=== PATIENT | male | born 1955 | race African-American/Black ===

== ENCOUNTER 2016-05-05 07:08 | Inpatient (IN) | payer OTHER ==
[2016-05-05] MEDS ORDERED: ASPIRIN 81 MG TABLET, CHEWABLE PO ONE (07:37)
[2016-05-05 08:02] LABS: VENOUS BLOOD BASE EXCESS -3.1 mmol/L; VENOUS BLOOD HCO3 23.8 mmol/L (20-32); VENOUS BLOOD PCO2 49.1 mmHg (35-63); VENOUS BLOOD PH 7.3 (7.30-7.42)
[2016-05-05 08:09] LABS: PROTHROMBIN TIME 16.4 SEC (11.4-15.4)
[2016-05-05 08:12] LABS: HEMATOCRIT 47.5 % (37.9-51.0); HEMOGLOBIN 14.6 g/dL (13.5-17.0); HGB HCT DIFFERENCE -3.7; MEAN CORPUSCULAR HEMOGLOBIN 19.9 pg (27.0-33.4); MEAN CORPUSCULAR HGB CONC 30.7 g/dL (32.0-36.0); MEAN CORPUSCULAR VOLUME 65 fl (80-97); RED CELL DISTRIBUTION WIDTH 17.4 % (11.5-14.0); WHITE BLOOD COUNT 9.8 10^3/uL (4.0-10.5)
[2016-05-05 08:15] LABS: RED BLOOD COUNT 7.32 10^6/uL (4.35-5.55)
[2016-05-05 08:21] LABS: ALANINE AMINOTRANSFERASE 38 U/L (21-72); ALBUMIN 3.6 g/dL (3.5-5.0); ALKALINE PHOSPHATASE 78 U/L (38-126); ANION GAP 14 (5-19); ASPARTATE AMINO TRANSFERASE 23 U/L (17-59); BILIRUBIN,DIRECT 0.1 mg/dL (0.0-0.3); BILIRUBIN,TOTAL 3.3 mg/dL (0.2-1.3); BLOOD UREA NITROGEN 14 mg/dL (7-20); CALCIUM 9.6 mg/dL (8.4-10.2); CARBON DIOXIDE 22 mmol/L (22-30); CHLORIDE 107 mmol/L (98-107); CREATINE KINASE 88 U/L (55-170); CREATININE RESULT 1.44 mg/dL (0.52-1.25); GLUCOSE 93 mg/dL (75-110); POTASSIUM 4.8 mmol/L (3.6-5.0); SODIUM 143.2 mmol/L (137-145); TOTAL PROTEIN 6.7 g/dL (6.3-8.2)
--- NOTE | 2016-05-05 08:30 | EKG REPORT ---
SEVERITY:- ABNORMAL ECG - SINUS TACHYCARDIA PROBABLE LVH WITH SECONDARY REPOL ABNRM BORDERLINE PROLONGED QT INTERVAL : Confirmed by: Zohreh Robles 05-May-2016 08:30:39
[2016-05-05 08:31] LABS: CREATINE KINASE MB 0.86 ng/mL (<4.55)
[2016-05-05 08:36] LABS: TROPONIN I 0.039 ng/mL
[2016-05-05] MEDS ORDERED: NORMAL SALINE 1000 ML 500 ML IV ONE (08:38)
[2016-05-05 08:43] LABS: BASOPHILS % (MANUAL) 1 % (0-2); EOSINOPHILS % (MANUAL) 0 % (0-6); LYMPHOCYTES % (MANUAL) 18 % (13-45); TOTAL CELLS COUNTED 100
[2016-05-05 08:45] LABS: ANISOCYTOSIS 1+; MICROCYTOSIS 3+; TOXIC GRANULATION 1+; TOXIC VACUOLATION PRESENT
--- NOTE | 2016-05-05 10:12 | ER Document Report ---
ED General - General Chief Complaint: Shortness Of Breath Stated Complaint: DIFFICULTY BREATHING TRAVEL OUTSIDE OF THE [place] IN LAST 30 DAYS: No - HPI Patient complains to provider of: shortness of breath difficulty breathing Notes: Patient coming in for evaluation shortness of breath difficulty in breathing. Patient states this is chronic issue patient states he is on C Pap at night states 2 weeks ago did see his physician and has C Pap adjusted. Patient states that he is suffocating at nighttime. Patient also states that he becomes very short of breath whenever moving or walking. Patient denies any recent travel trauma. Patient denies history of DVT PE in the past. Patient does state he has been treated for anxiety and the past but currently is not on any medications. - Related Data Allergies/Adverse Reactions: No Known Allergies Allergy (Verified 05/05/16 07:21) Past Medical History - Social History Smoking Status: Unknown if Ever Smoked Chew tobacco use (# tins/day): No Frequency of alcohol use: None Drug Abuse: None Family History: Arthritis, DM, Hyperlipidemia, Hypertension, Malignancy, Thyroid Disfunction, Other Patient has suicidal ideation: No Patient has homicidal ideation: No - Past Medical History Cardiac Medical History: Reports: Hx Hypertension Renal/ Medical History: Denies: Hx Peritoneal Dialysis GI Medical History: Reports: Hx Colonoscopy Musculoskeltal Medical History: Reports Hx Arthritis Psychiatric Medical History: Reports: Hx Anxiety Past Surgical History: Reports: Hx Oral Surgery - teeth pulled, Hx Orthopedic Surgery - right hand 4th finger - Immunizations Hx Diphtheria, Pertussis, Tetanus Vaccination: Yes Review of Systems - Review of Systems Constitutional: No symptoms reported EENT: No symptoms reported Cardiovascular: No symptoms reported Respiratory: Short of breath Gastrointestinal: No symptoms reported Genitourinary: No symptoms reported Male Genitourinary: No symptoms reported Musculoskeletal: No symptoms reported Skin: No symptoms reported Hematologic/Lymphatic: No symptoms reported Neurological/Psychological: No symptoms reported -: Yes All other systems reviewed and negative Physical Exam - Vital signs Vitals: Temp Pulse Resp BP Pulse Ox 98.1 F 112 H 18 155/97 H 97 05/05/16 07:22 05/05/16 07:22 05/05/16 07:22 05/05/16 07:22 05/05/16 07:22 Interpretation: Tachycardic, Tachypneic - General General appearance: Appears well, Alert - HEENT Head: Normocephalic, Atraumatic Eyes: Normal Pupils: PERRL - Respiratory Respiratory status: No respiratory distress Chest status: Nontender Breath sounds: Normal Chest palpation: Normal - Cardiovascular Rhythm: Regular Heart sounds: Normal auscultation Murmur: No - Abdominal Inspection: Normal Distension: No distension Bowel sounds: Normal Tenderness: Nontender Organomegaly: No organomegaly - Back Back: Normal, Nontender - Extremities General upper extremity: Normal inspection, Nontender, Normal color, Normal ROM , Normal temperature General lower extremity: Normal inspection, Nontender, Normal color, Normal ROM , Normal temperature, Normal weight bearing. No: Lebron's sign - Neurological Neuro grossly intact: Yes Cognition: Normal Orientation: AAOx4 Mame Coma Scale Eye Opening: Spontaneous Mame Coma Scale Verbal: Oriented Mame Coma Scale Motor: Obeys Commands Mame Coma Scale Total: 15 Speech: Normal Motor strength normal: LUE, RUE, LLE, RLE Sensory: Normal - Psychological Associated symptoms: Normal affect, Normal mood - Skin Skin Temperature: Warm Skin Moisture: Dry Skin Color: Normal Course - Re-evaluation Re-evalutation: 05/05/16 14:31 Patient's lab work had elevated d-dimer follow-up with a CTA showing a PE. pesi index is intermediate upon evaluating the patient in discussing his diagnosis of patient did become hypoxic requiring nasal cannula oxygen. Discussed with hospitalist. Patient was given a dose of Lovenox will be admitted for further evaluation and observation. - Vital Signs Vital signs: Temp Pulse Resp BP Pulse Ox 97.6 F 91 22 H 146/86 H 98 05/05/16 12:06 05/05/16 12:06 05/05/16 12:06 05/05/16 12:06 05/05/16 12:06 - Laboratory Result Diagrams: 05/05/16 07:40 05/05/16 07:40 Laboratory results interpreted by me: 05/05/16 05/05/16 05/05/16 07:40 07:40 07:40 RBC 7.32 H MCV 65 L MCH 19.9 L MCHC 30.7 L RDW 17.4 H PT 16.4 H D-Dimer 0.80 H Creatinine 1.44 H Est GFR (Non-Af Amer) 50 L Total Bilirubin 3.3 H Critical Care Note - Critical Care Note Total time excluding time spent on procedures (mins): 35 Comments: Multiple evaluation patient presenting with PE dyspnea tachycardia. Discharge - Discharge Clinical Impression: Tachycardia Pulmonary embolism Qualifiers: Pulmonary embolism type: other Chronicity: acute Acute cor pulmonale presence: without acute cor pulmonale Qualified Code(s): I26.99 - Other pulmonary embolism without acute cor pulmonale Dyspnea Qualifiers: Dyspnea type: unspecified Qualified Code(s): R06.00 - Dyspnea, unspecified Condition: Good Disposition: ADMITTED INPATIENT Admitting Provider: [facility] Admitted: Telemetry
[2016-05-05] MEDS ORDERED: ENOXAPARIN SODIUM INJ 120 MG/0.8 ML DISP.SYRIN SUBCUT SCH ×2 (10:15→22:00)
[2016-05-05] MEDS ORDERED: ENOXAPARIN SODIUM INJ 120 MG/0.8 ML DISP.SYRIN SUBCUT ONE (10:30)
[2016-05-05] MEDS ORDERED: MAGNESIUM HYDROXIDE SUSP 30 ML UDCUP PO PRN (10:41)
[2016-05-05] MEDS ORDERED: ONDANSETRON HCL INJ/PF 4 MG/2 ML SDV IV PRN (10:41)
[2016-05-05] MEDS ORDERED: ACETAMINOPHEN 325 MG TABLET PO PRN (10:41)
[2016-05-05] MEDS ORDERED: APIXABAN 5 MG TABLET PO ONE (11:30)
[2016-05-05 12:25] LABS: TROPONIN I 0.047 ng/mL
[2016-05-05] MEDS ORDERED: INFLUENZA ADLT QUAD (36MOS+) 2016-17 VAC 0.5 ML SYR IM PRN (12:52)
--- NOTE | 2016-05-05 15:47 | XCELERA REPORT ---
[address] [address] Lower Extremity Venous Evaluation Name: TIKI FRIEDMAN Age: 60 yrs Gender: Male : 1955 Patient Status: Inpatient Patient Location: [id number]\404\[id number] Study Date: 05/05/2016 02:15 PM Procedure: Color flow and duplex imaging bilaterally of the veins of the lower extremities as well as the Common Femoral veins. Reason For Study: DVT Ordering Physician: LAYA MYERS Performed By: Barbra Rodriguez Right Sided Venous Evaluation Normal vessel filling wall to wall, compression and augmentation as well as Colour flow down to the infrageniculate veins. Left Sided Venous Evaluation Normal vessel filling wall to wall, compression and augmentation as well as Colour flow down to the infrageniculate veins. Interpretation Summary No duplex evidence of DVT or obstruction in the bilateral lower extremities. : LAYA MYERS > Aris Canas
--- NOTE | 2016-05-05 16:31 | PDOC H&P ---
History of Present Illness Admission Date/PCP: 05/05/16 10:43 RADHA DASILVA Patient complains of: Shortness of breath History of Present Illness: TIKI FRIEDMAN is a 60 year old male presents to the emergency department from home with a several week history of progressive shortness of breath, worse at night. He was recently seen a sleep study and diagnosed with sleep apnea placed on CPAP machine for approximately the last 6 weeks but has not noticed any improvement in his dyspnea, however he does state he sleeps better than he ever has before. He reports feeling "bloated", rapid shallow breathing worse with lying flat with associated chills and a sensation of early satiety. He also describes sharp, epigastric pain that waxes and wanes and is nonradiating, relieved with eating and worse with certain positions and palpation but is not associated with chest pain, palpitations, lower extremities swelling, sicca B or presyncope. He denies cough, congestion, fevers, chills, nausea vomiting diarrhea, constipation, wheezing. He reports taking a 19 hour trip to [place] by train where he was largely confined to his seat and did not plan well for such a long trip meaning he did not stay hydrated or eat well during this trip. Shortly thereafter he noted pain in his left calf and within a week he started feeling some dyspnea as described above. Evaluation in the emergency department including CTA of the chest shows a right lower lobe pulmonary embolus is likely extubation for the vast majority of his symptoms. He is not hypoxic but he is to get back and tachycardic and so we were asked to admit for further evaluation and management. He was given a dose of Lovenox 1 mg/kg subcutaneous 1 in the emergency brother. Past Medical History Cardiac Medical History: Reports: Hypertension Musculoskeltal Medical History: Reports: Arthritis Past Surgical History Past Surgical History: Reports: Orthopedic Surgery - right hand 4th finger Social History Smoking Status: Unknown if Ever Smoked Number of Years Smokin Last Time Smoked: 20 years ago Frequency of Alcohol Use: Occasional Hx Recreational Drug Use: No Drugs: None Hx Prescription Drug Abuse: No - Advance Directive Resuscitation Status: Full Code Family History Family History: Arthritis, DM, Hyperlipidemia, Hypertension, Malignancy, Thyroid Disfunction. denies: Other - No history of bleeding diathesis or clotting disorder Parental Family History Reviewed: Yes Children Family History Reviewed: Yes Sibling(s) Family History Reviewed.: Yes Medication/Allergy Home Medications: Amlodipine Besylate [Amlodipine Besylate] 5 mg PO HSP 02/11/16 Atorvastatin Calcium 40 mg PO HSP PRN 02/11/16 Enalapril Maleate [Enalapril Maleate] 20 mg PO BID 02/11/16 Allergies/Adverse Reactions: No Known Allergies Allergy (Verified 05/05/16 07:21) Review of Systems Constitutional: ABSENT: chills, fever(s), headache(s), weight gain, weight loss Eyes: ABSENT: visual disturbances Ears: ABSENT: hearing changes Cardiovascular: PRESENT: as per HPI, dyspnea on exertion, orthropnea. ABSENT: chest pain, edema, palpitations Respiratory: PRESENT: as per HPI Gastrointestinal: PRESENT: as per HPI Genitourinary: ABSENT: dysuria, hematuria Musculoskeletal: ABSENT: joint swelling Integumentary: ABSENT: rash, wounds Neurological: ABSENT: abnormal gait, abnormal speech, confusion, dizziness, focal weakness, syncope Psychiatric: ABSENT: anxiety, depression Endocrine: ABSENT: cold intolerance, heat intolerance, polydipsia, polyuria Hematologic/Lymphatic: ABSENT: easy bleeding, easy bruising Physical Exam Vital Signs: Temp Pulse Resp BP Pulse Ox 97.6 F 91 22 H 146/86 H 98 05/05/16 12:06 05/05/16 12:06 05/05/16 12:06 05/05/16 12:06 05/05/16 12:06 Intake & Output 05/04/16 05/05/16 05/06/16 06:59 06:59 06:59 Weight 103.2 kg PHYSICAL EXAM GENERAL: NAD; well developed, well nourished; mild obese; alert and oriented to person, place, time, situation HEENT: normocephalic, atraumatic; EOMI, PERRLA, no conjunctival injection, no scleral icterus; oral mucosa moist,; neck supple, no LAD, normal ROM RESPIRATORY: no accessory muscle use, no increased WOB, good air entry bilaterally; no wheezes, rales, rhonchi; no inspiratory crackles CARDIO: no JVD; RRR; no systolic murmur; no tachycardia VASCULAR: no carotid bruit; no abdominal bruit; no pallor; 2+ radial, DP pulse ; normal capillary refill GI: soft; nondistended; normal bowel sounds; no hepato spleno megaly; no rebound, rigidity, guarding; mild epigastric tenderness to deep palpation, reproduces the patient's symptoms. No tenderness to the chest wall with deep palpation. : normal external genitalia; rectal deferred NEURO: normal patella reflexes; normal sensation; normal motor function; no gait abnls; no dysarthria; no nystagmus; MSK: 5/5 strength; normal ROM hips; ambulatory without assistance; no tenderness EXTREMITIES: no calf tender; no palpable cords in calf and no tenderness; no clubbing, cyanosis, pedal edema PSYCH: normal affect, normal mood SKIN: warm; moist; no petechiae; no telengectasias; no jaundice; no rash Results Laboratory Results: 05/05/16 11:30 Troponin I 0.047 NT-Pro-B Natriuret Pep 9710 H Impressions: Abdomen X-Ray 05/05/16 00:00 IMPRESSION: NO RADIOGRAPHIC EVIDENCE FOR ACUTE ABDOMINAL DISEASE. Chest X-Ray 05/05/16 07:38 IMPRESSION: Atelectasis versus early pneumonia or aspiration right lower lobe. Clinical correlation is needed. Chest/Abdomen CTA 05/05/16 08:37 IMPRESSION: Positive for small emboli in the right lower lobe pulmonary arterial branches. No central PE. Assessment & Plan - Diagnosis (1) Pulmonary embolism Qualifiers: Pulmonary embolism type: other Chronicity: acute Acute cor pulmonale presence: without acute cor pulmonale Qualified Code(s): I26.99 - Other pulmonary embolism without acute cor pulmonale Is this a current diagnosis for this admission?: YesPlan: Admit to telemetry for overnight monitoring and careful hemodynamic monitoring, supplemental O2 as needed. Start Eliquis. Consult hematology for hypercoagulable evaluation. Check echocardiogram for right ventricular strain given the elevation of his BNP. (2) Epigastric pain Is this a current diagnosis for this admission?: YesPlan: Unclear etiology but I suspect peptic ulcer disease or gastritis. We'll start empiric PPI therapy twice a day. Given his multiple risk factors however, will check 3 sets cardiac enzymes and follow-up on echo. Check amylase and lipase (3) Hyperlipidemia Is this a current diagnosis for this admission?: YesPlan: Check lipids in the a.m. (4) Essential hypertension Is this a current diagnosis for this admission?: YesPlan: Monitor and treat as clinically indicated. (5) Chronic kidney disease, stage II (mild) Is this a current diagnosis for this admission?: YesPlan: Unknown baseline. Continue to monitor for now. - Time Time Spent: 50 to 70 Minutes Medications reviewed and adjusted accordingly: Yes Anticipated discharge: Home - Inpatient Certification Based on my medical assessment, after consideration of the patient's comorbidities, presenting symptoms, or acuity I expect that the services needed warrant INPATIENT care.: Yes I certify that my determination is in accordance with my understanding of Medicare's requirements for reasonable and necessary INPATIENT services [42 CFR 412.3e].: Yes Medical Necessity: Need For Continuous Telemetry Monitoring, Risk of Complication if Not Cared For in Hospital
[2016-05-05 17:15] LABS: LIPASE 179.2 U/L (23-300)
[2016-05-05 17:28] LABS: CREATINE KINASE MB 0.89 ng/mL (<4.55); TROPONIN I 0.055 ng/mL
--- NOTE | 2016-05-05 17:52 | XCELERA REPORT ---
[address] [address] Transthoracic Echocardiogram Report Name: TIKI FRIEDMAN Age: 60 yrs Gender: Male : 1955 Patient Status: Inpatient Patient Location: [id number]\404\[id number] Study Date: 05/05/2016 01:50 PM Height: 72 in Weight: 233 lb BSA: 2.3 m2 Procedure: A complete two-dimensional transthoracic echocardiogram was performed (2D, M-mode, spectral and color flow Doppler). The study was technically adequate with some images being suboptimal in quality. Reason For Study: PE Ordering Physician: LAYA MYERS Performed By: Barbra Rodriguez Interpretation Summary The Ejection Fraction estimate is <20% Left ventricular systolic function is severely reduced. There is normal left ventricular wall thickness. The left ventricle is moderately dilated. Doppler measurements suggest pseudonormalized left ventricular relaxation, which is associated with grade II/IV or mild to moderate diastolic dysfunction There is severe global hypokinesis of the left ventricle. There is mid to distal anterior wall akinesis Borderline right ventricular enlargement. The right ventricular systolic function is mild to moderately reduced. The right atrium is normal in size The left and right artia are moderately dilated There is a moderate to severe amount of mitral regurgitation There is no mitral valve stenosis. There is a trace amount of aortic regurgitation There is no aortic valve stenosis There is a trace or physiologic amount of tricuspid regurgitation Tricuspid regurgitation jet envelope not well defined to measure RV systolic pressure accurately. Minimal pericardial effusion. The inferior vena cava appeared normal and decreased < 50% with respiration (RAP 10-15 mmHg) MMode/2D Measurements \T\ Calculations RVDd: 3.5 cm LVIDd: 6.9 cm FS: 5.2 % EPSS: 2.9 cm IVSd: 0.87 cm LVIDs: 6.5 cm EDV(Teich): MV Diam: 3.0 cm LVPWd: 0.87 cm 245.6 ml ESV(Teich): 217.7 ml EF(Teich): 11.3 % Ao root diam: LVOT diam: LVLd ap4: 8.8 cm SV(MOD-sp4): 21.0 ml 3.6 cm 2.2 cm EDV(MOD-sp4): Ao root area: LVOT area: 167.0 ml 10.1 cm2 4.0 cm2 LVLs ap4: 8.4 cm LA dimension: ESV(MOD-sp4): 4.4 cm 146.0 ml EF(MOD-sp4): 12.6 % LA A2Cs: 31.8 cm2 LA A4Cs: LA length: 6.7 cm LA Vol Index (BP): 28.1 cm2 49.9 ml/m2 LA Volume: 113.4 ml Doppler Measurements \T\ Calculations MV E max mahsa: MV V2 max: MV P1/2t max mahsa: Ao V2 max: 102.8 cm/sec 103.2 cm/sec 103.2 cm/sec 99.4 cm/sec MV A max mahsa: MV max P.3 mmHgMV P1/2t: 52.2 msec Ao max P.1 cm/sec MV V2 mean: 4.0 mmHg MV E/A: 3.7 54.5 cm/sec MVA(P1/2t): 4.2 cm2 MV mean PG: MV dec slope: [place](V,D): 2.8 cm2 1.5 mmHg 578.4 cm/sec2 MV V2 VTI: 17.5 cm MV dec time: MV area (1 diam): 0.18 sec 6.9 cm2 MV Flow area (1diam): 6.9 cm2 LV V1 max PG: MR max mahsa: MR(RF 1 diam): SV(MV 1 diam): 2.0 mmHg 467.5 cm/sec 32.5 % 120.2 ml LV V1 max: MR max PG: SI(MV 1 diam): 71.0 cm/sec 87.4 mmHg 52.9 ml/m2 LV dP/dt: 826.0 mmHg/s PA V2 max: PI end-d mahsa: TR max mahsa: 54.3 cm/sec 199.1 cm/sec 206.3 cm/sec PA max PG: TR max P.0 mmHg 1.2 mmHg Left Ventricle The left ventricle is moderately dilated. There is normal left ventricular wall thickness. Left ventricular systolic function is severely reduced. The Ejection Fraction estimate is <20%. Doppler measurements suggest pseudonormalized left ventricular relaxation, which is associated with grade II/IV or mild to moderate diastolic dysfunction. There is severe global hypokinesis of the left ventricle. There is mid to distal anterior wall akinesis. Right Ventricle Borderline right ventricular enlargement. There is normal right ventricular wall thickness. The right ventricular systolic function is mild to moderately reduced. Atria The right atrium is normal in size. The left and right artia are moderately dilated. Interarterial septum not well visualized and not well dopplered. Cannot comment on ASD/PFO presence. Mitral Valve The mitral valve leaflets are sclerotic, but show no functional abnormalities. There is no mitral valve stenosis. There is a moderate to severe amount of mitral regurgitation. Aortic Valve The aortic valve is grossly normal. There is no aortic valve stenosis. There is a trace amount of aortic regurgitation. Tricuspid Valve The tricuspid valve is not well visualized, but is grossly normal. There is no tricuspid stenosis. There is a trace or physiologic amount of tricuspid regurgitation. Tricuspid regurgitation jet envelope not well defined to measure RV systolic pressure accurately. Pulmonic Valve The pulmonic valve is not well visualized. There is a mild amount of pulmonic regurgitation. Great Vessels The aortic root is not well visualized but is probably normal size. The inferior vena cava appeared normal and decreased < 50% with respiration (RAP 10-15 mmHg). Effusions Minimal pericardial effusion. : LAYA MYERS > Zohreh Robles
[2016-05-05] MEDS ORDERED: APIXABAN 5 MG TABLET PO SCH (18:00)
[2016-05-05] MEDS: DOCUSATE SODIUM 100 MG CAPSULE PO SCH (18:31)
--- NOTE | 2016-05-05 21:16 | PDOC CONSULTATION ---
Consultation Consult Date: 05/05/16 Attending physician:: LAYA MYERS Consult reason:: Cardiomyopathy History of Present Illness Admission Date/PCP: 05/05/16 10:43 RADHA DASILVA Patient complains of: Dyspnea History of Present Illness: TIKI FRIEDMAN is a 60 year old male presents to the emergency department from home with a several week history of progressive shortness of breath, worse at night. He was recently seen a sleep study and diagnosed with sleep apnea placed on CPAP machine for approximately the last 6 weeks but has not noticed any improvement in his dyspnea, however he does state he sleeps better than he ever has before. He reports feeling "bloated", rapid shallow breathing worse with lying flat with associated chills and a sensation of early satiety. He also describes sharp, epigastric pain that waxes and wanes and is nonradiating, relieved with eating and worse with certain positions and palpation but is not associated with chest pain, palpitations, lower extremities swelling, syncope or presyncope. He denies cough, congestion, fevers, chills, nausea vomiting diarrhea, constipation, wheezing. He reports taking a 19 hour trip to [place] by train where he was largely confined to his seat and did not plan well for such a long trip meaning he did not stay hydrated or eat well during this trip. Shortly thereafter he noted pain in his left calf and within a week he started feeling some dyspnea as described above. Evaluation in the emergency department including CTA of the chest shows a right lower lobe pulmonary embolus is likely extubation for the vast majority of his symptoms. He is not hypoxic but he is to get back and tachycardic and so we were asked to admit for further evaluation and management. He was given a dose of Lovenox 1 mg/kg subcutaneous 1 in the emergency brother. Patient subsequently had a echocardiogram which shows severely depressed LVEF and moderate to severe mitral regurgitation, more towards moderate. I was therefore asked to evaluate this patient. Patient describes history of heart catheterization in [facility] about 10 years ago. At that time there was talk of a pacemaker defibrillator placement but it seems he fell through the cracks. He was given some medication. He claims that he did some follow-up but then was lost to follow- up. Past Medical History Cardiac Medical History: Reports: Hypertension Musculoskeltal Medical History: Reports: Arthritis Past Surgical History Past Surgical History: Reports: Cardiac Catheterization - In [place] about 10 years ago, Orthopedic Surgery - right hand 4th finger Social History Information Source: Patient Smoking Status: Unknown if Ever Smoked Number of Years Smokin Last Time Smoked: 20 years ago Frequency of Alcohol Use: Occasional Hx Recreational Drug Use: No Drugs: None Hx Prescription Drug Abuse: No - Advance Directive Resuscitation Status: Full Code Family History Family History: Arthritis, DM, Hyperlipidemia, Hypertension, Malignancy, Thyroid Disfunction. denies: Other - No history of bleeding diathesis or clotting disorder Parental Family History Reviewed: Yes Children Family History Reviewed: Yes Sibling(s) Family History Reviewed.: Yes - Negative for premature coronary artery disease or sudden cardiac in the family amongst first degree relatives. Medication/Allergy Home Medications: Atorvastatin Calcium [Lipitor 20 mg Tablet] 20 mg PO DAILY 05/07/16 Trazodone HCl [Desyrel 50 mg Tablet] 50 mg PO QHS 05/07/16 Allergies/Adverse Reactions: No Known Allergies Allergy (Verified 05/05/16 07:21) Review of Systems Review of Systems: Please see history of present illness and past medical history as wall. Constitutional: No fever or chills reported. Head : No recent chronic headaches, recent head injury. Eyes: No recent eye pain, diplopia, redness, discharge, acute visual changes. Ears: No recent chronic ear pain, acute hearing loss, ear discharge. Oral cavity: No recent ulcerations, bleeding, oral cavity discomfort. Neck: No recent acute neck pain reported. Hematologic: No recent easy bruising or bleeding or hematologic malignancy reported. Lymphatic: No recent lymphatic malignancy, chronic lymphadenopathy reported yet Cardiovascular system review: See history of present illness. No sustained palpitations, syncope, near syncope. Occasional pedal edema. Respiratory system review: No recent chronic cough, hemoptysis, blood clots in the lungs reported. Moderate Shortness of breath on exertion. Positive PND and orthopnea. Gastrointestinal system review: Negative for any recent acute or chronic abdominal pain, hematemesis, melena, recent change in bowel habits. Genitourinary system review: No recent acute or chronic hematuria, flank pain, UTI etc. reported. Skin system review: Negative for any recent abnormal bruising, no rash, no pruritus reported. Neurologic: No prior history of strokes, mini strokes, seizure disorder. Psychologic: No history of major psychosis or depression reported. Musculoskeletal: Minor aches and pains reported. No acute joint swelling reported. Endocrine: No recent polyuria, polydipsia, recent heat or cold intolerance. Physical Exam Vital Signs: Temp Pulse Resp BP Pulse Ox 97.9 F 102 H 18 146/104 H 100 05/05/16 19:24 05/05/16 19:24 05/05/16 19:24 05/05/16 19:24 05/05/16 19:24 Intake & Output 05/04/16 05/05/16 05/06/16 06:59 06:59 06:59 Intake Total 783 Balance 783 Weight 103.2 kg Exam: GENERAL: well-nourished and in no acute distress. Alert and oriented x3 HEAD: Atraumatic, normocephalic. EYES: Pupils equal round and reactive to light, extraocular movements intact, sclera anicteric, conjunctiva are normal. ENT: TMs normal, nares patent, oropharynx clear without exudates. Moist mucous membranes. No oral ulcerations or bleeding gums noted NECK: supple without lymphadenopathy. Trachea is central. No cervical or axillary lymphadenopathy noted. Carotids are 2+, JVD 10-12 CM LUNGS: Respiration seems nonlabored, no significant accessory muscle action noted. Diminished breath sounds right base with slight dullness but otherwise clear. No wheezes rales or rhonchi. CHEST: Palpation of the chest wall shows no significant chest wall tenderness or abnormalities. HEART: [place] [employer], No PSH, 1/6 CRIS aortic area, 2/6 coelho systolic murmur mitral area, no rubs, positive S3 gallops. ABDOMEN: Soft, no significant tenderness appreciated, normoactive bowel sounds. No guarding, no rebound. No rigidity noted . No masses appreciated. EXTREMITIES: Pedal pulses are 1-2+, no calf tenderness noted. No clubbing or cyanosis.1+ pedal edema noted NEUROLOGICAL: Focused neurological exam showed no significant neurologic deficit. Normal speech, no focal weakness appreciated. PSYCH: Normal mood, normal affect. Judgment and insight within normal limits. SKIN: No significant ecchymosis, rash, ulcerations or signs of pruritus noted. MUSCULOSKELETAL EXAM: No significant joint swelling noted. Results Laboratory Results: 05/05/16 16:50 Amylase 71 Lipase 179.2 05/05/16 05/05/16 05/05/16 11:30 16:50 16:50 Creatine Kinase 63 CK-MB (CK-2) 0.89 Troponin I 0.047 0.055 NT-Pro-B Natriuret Pep 9710 H EKG Comments: Sinus tachycardia, LVH, secondary ST-T wave changes. Impressions: Abdomen X-Ray 05/05/16 00:00 IMPRESSION: NO RADIOGRAPHIC EVIDENCE FOR ACUTE ABDOMINAL DISEASE. Chest X-Ray 05/05/16 07:38 IMPRESSION: Atelectasis versus early pneumonia or aspiration right lower lobe. Clinical correlation is needed. Chest/Abdomen CTA 05/05/16 08:37 IMPRESSION: Positive for small emboli in the right lower lobe pulmonary arterial branches. No central PE. Assessment & Plan - Diagnosis (1) Cardiomyopathy Qualifiers: Cardiomyopathy type: unspecified Qualified Code(s): I42.9 - Cardiomyopathy, unspecified Is this a current diagnosis for this admission?: YesPlan: Patient had a heart catheterization 10 years ago, at that time no intervention was performed but this record. Will need to review patient's cardiac catheter report. Patient will benefit from ischemia workup. In the meantime we will optimize therapy for underlying cardiomyopathy. Will add digoxin, hydralazine nitrate combination, spironolactone etc. Patient will also benefit from wearing a life vest and possible referral for prophylactic defibrillator placement. These were discussed with the patient. (2) Mitral regurgitation Qualifiers: Cardiac valve disease etiology: etiology unspecified Qualified Code( s): I34.0 - Nonrheumatic mitral (valve) insufficiency Is this a current diagnosis for this admission?: YesPlan: Patient has moderate to severe mitral regurgitation. Most likely related to cardiomyopathy and dilatation of the LV. Will start patient on diuretics. (3) Chronic kidney disease, stage II (mild) Is this a current diagnosis for this admission?: YesPlan: Currently stable. Avoid nephrotoxic medications. (4) Dyspnea Qualifiers: Dyspnea type: unspecified Qualified Code(s): R06.00 - Dyspnea, unspecified Is this a current diagnosis for this admission?: YesPlan: Most likely related to congestive heart failure with contribution from pulmonary embolism. (5) Essential hypertension Is this a current diagnosis for this admission?: Yes (6) Pulmonary embolism Qualifiers: Pulmonary embolism type: other Chronicity: acute Acute cor pulmonale presence: without acute cor pulmonale Qualified Code(s): I26.99 - Other pulmonary embolism without acute cor pulmonale Is this a current diagnosis for this admission?: YesPlan: Continue Lovenox therapy and switch over to oral anticoagulation with overlap as recommended. (7) Tachycardia Is this a current diagnosis for this admission?: YesPlan: Related to cardiomyopathy, CHF and pulmonary embolism. Will gradually introduce beta blockers, when compensated.. (8) Congestive heart failure Qualifiers: Congestive heart failure type: combined Congestive heart failure chronicity: acute on chronic Qualified Code(s): I50.43 - Acute on chronic combined systolic (congestive) and diastolic (congestive) heart failure Is this a current diagnosis for this admission?: YesPlan: Most likely precipitated by pulmonary embolism and volume overload. Treat patient for pulmonary embolism. Will recommend diuretic therapy. (9) Sleep apnea syndrome Qualifiers: Sleep apnea type: unspecified type Qualified Code(s): G47.30 - Sleep apnea, unspecified Is this a current diagnosis for this admission?: YesPlan: Discussed improvement in cardiomyopathy, LVEF and CHF symptoms with nightly positive pressure ventilation use. - Notes Notes: CODE STATUS was discussed, patient remains full code. Surrogate decision-maker unchanged. Multiple medical problems were addressed. - Time Time Spent: 30 to 50 Minutes - More than 50% of the time spent coordinating care , discussing management plans with involved caregivers. Management plans discussed with involved personnels. Medical decision making was of moderate complexity.
[2016-05-05] MEDS: IPRATROPIUM/ALBUTEROL 0.5-2.5 MG/3 ML AMPUL NEB PRN (21:46)
[2016-05-05] MEDS ORDERED: TORSEMIDE 20 MG TABLET PO ONE (22:00)
[2016-05-05] MEDS ORDERED: VALSARTAN 80 MG TABLET PO ONE (22:00)
[2016-05-05] MEDS ORDERED: DIGOXIN 0.25 MG TABLET PO ONE (22:00)
[2016-05-05] MEDS: PANTOPRAZOLE SODIUM 40 MG VIAL IV SCH (22:07)
[2016-05-05 23:22] LABS: CREATINE KINASE MB 0.8 ng/mL (<4.55); TROPONIN I 0.056 ng/mL
--- NOTE | 2016-05-05 23:43 | PDOC CONSULTATION ---
Consultation Consult Date: 05/05/16 History of Present Illness Admission Date/PCP: 05/05/16 10:43 RADHA DASILVA History of Present Illness: TIKI FRIEDMAN is a 60 year old male presents to the emergency department from home with a several week history of progressive shortness of breath, worse at night. He was recently seen a sleep study and diagnosed with sleep apnea placed on CPAP machine for approximately the last 6 weeks but has not noticed any improvement in his dyspnea, however he does state he sleeps better than he ever has before. He reports feeling "bloated", rapid shallow breathing worse with lying flat with associated chills and a sensation of early satiety. He also describes sharp, epigastric pain that waxes and wanes and is nonradiating, relieved with eating and worse with certain positions and palpation but is not associated with chest pain, palpitations, lower extremities swelling, syncope or presyncope. He denies cough, congestion, fevers, chills, nausea vomiting diarrhea, constipation, wheezing. He reports taking a 19 hour trip to [place] by train where he was largely confined to his seat and did not plan well for such a long trip meaning he did not stay hydrated or eat well during this trip. Shortly thereafter he noted pain in his left calf and within a week he started feeling some dyspnea as described above. Evaluation in the emergency department including CTA of the chest shows a right lower lobe pulmonary embolus is likely extubation for the vast majority of his symptoms. He is not hypoxic but he is to get back and tachycardic and so we were asked to admit for further evaluation and management. He was given a dose of Lovenox 1 mg/kg subcutaneous 1 in the emergency brother. Patient subsequently had a echocardiogram which shows severely depressed LVEF and moderate to severe mitral regurgitation, more towards moderate. I was therefore asked to evaluate this patient. Patient describes history upper GI symptoms for the past 16 weeks. He denies any weight loss, melrna, hematochezia Past Medical History Medical History: None Cardiac Medical History: Reports: Hypertension Pulmonary Medical History: Reports: None, Sleep Apnea Musculoskeltal Medical History: Reports: Arthritis Past Surgical History Past Surgical History: Reports: Cardiac Catheterization - In [place] about 10 years ago, Orthopedic Surgery - right hand 4th finger Social History Lives with: Alone Smoking Status: Unknown if Ever Smoked Number of Years Smokin Last Time Smoked: 20 years ago Frequency of Alcohol Use: Occasional Hx Recreational Drug Use: No Drugs: None Hx Prescription Drug Abuse: No - Advance Directive Resuscitation Status: Full Code Family History Family History: Arthritis, DM, Hyperlipidemia, Hypertension, Malignancy, Thyroid Disfunction. denies: Other - No history of bleeding diathesis or clotting disorder Parental Family History Reviewed: Yes Children Family History Reviewed: Yes Sibling(s) Family History Reviewed.: Yes Medication/Allergy Home Medications: Amlodipine Besylate [Amlodipine Besylate] 5 mg PO HSP 02/11/16 Atorvastatin Calcium 40 mg PO HSP PRN 02/11/16 Enalapril Maleate [Enalapril Maleate] 20 mg PO BID 02/11/16 Allergies/Adverse Reactions: No Known Allergies Allergy (Verified 05/05/16 07:21) Review of Systems Constitutional: PRESENT: weakness Cardiovascular: PRESENT: as per HPI, dyspnea on exertion Respiratory: PRESENT: dyspnea Gastrointestinal: PRESENT: abdominal pain, bloating Musculoskeletal: PRESENT: as per HPI Physical Exam Vital Signs: Temp Pulse Resp BP Pulse Ox 97.9 F 102 H 18 146/104 H 100 05/05/16 19:24 05/05/16 19:24 05/05/16 19:24 05/05/16 19:24 05/05/16 19:24 Intake & Output 05/04/16 05/05/16 05/06/16 06:59 06:59 06:59 Intake Total 783 Balance 783 Weight 103.2 kg General appearance: PRESENT: no acute distress Head exam: PRESENT: normocephalic Eye exam: PRESENT: conjunctiva pink, EOMI, PERRLA Ear exam: PRESENT: normal external ear exam Mouth exam: PRESENT: moist Respiratory exam: PRESENT: clear to auscultation rikki Cardiovascular exam: PRESENT: tachycardia GI/Abdominal exam: PRESENT: normal bowel sounds, tenderness - in the midepigastric area Rectal exam: PRESENT: deferred Extremities exam: PRESENT: +1 edema Psychiatric exam: PRESENT: normal mood Results Laboratory Results: 05/05/16 16:50 Amylase 71 Lipase 179.2 05/05/16 05/05/16 05/05/16 11:30 16:50 16:50 Creatine Kinase 63 CK-MB (CK-2) 0.89 Troponin I 0.047 0.055 NT-Pro-B Natriuret Pep 9710 H Impressions: Abdomen X-Ray 05/05/16 00:00 IMPRESSION: NO RADIOGRAPHIC EVIDENCE FOR ACUTE ABDOMINAL DISEASE. Chest X-Ray 05/05/16 07:38 IMPRESSION: Atelectasis versus early pneumonia or aspiration right lower lobe. Clinical correlation is needed. Chest/Abdomen CTA 05/05/16 08:37 IMPRESSION: Positive for small emboli in the right lower lobe pulmonary arterial branches. No central PE. Assessment & Plan - Diagnosis (1) Epigastric pain Is this a current diagnosis for this admission?: YesPlan: Check his stool guaiacs, iron studies and recommend an EGD wi GI evaluation (2) Pulmonary embolism Qualifiers: Pulmonary embolism type: other Chronicity: acute Acute cor pulmonale presence: without acute cor pulmonale Qualified Code(s): I26.99 - Other pulmonary embolism without acute cor pulmonale Is this a current diagnosis for this admission?: YesPlan: Continue Lovenox with switch to Xarelto or Eliquis once decision made to proceed with EGD inpatient or outpatient. Would anticipate further eval - Time Time Spent: 50 to 70 Minutes Critical Time spent with patient: 25-34 minutes Medications reviewed and adjusted accordingly: Yes Anticipated discharge: Home Within: within 36 hours
[2016-05-06 06:04] LABS: ANION GAP 10 (5-19); BLOOD UREA NITROGEN 16 mg/dL (7-20); CALCIUM 9.1 mg/dL (8.4-10.2); CARBON DIOXIDE 25 mmol/L (22-30); CHLORIDE 107 mmol/L (98-107); CHOLESTEROL 172.72 mg/dL (0-200); CREATINE KINASE 76 U/L (55-170); CREATININE RESULT 1.36 mg/dL (0.52-1.25); Direct HDL 38 mg/dL (>40); GLUCOSE 91 mg/dL (75-110); POTASSIUM 4.5 mmol/L (3.6-5.0); TRIGLYCERIDES 84 mg/dL (<150)
[2016-05-06 06:06] LABS: HEMATOCRIT 44.3 % (37.9-51.0); HEMOGLOBIN 13.9 g/dL (13.5-17.0); HGB HCT DIFFERENCE -2.6; MEAN CORPUSCULAR HEMOGLOBIN 20.2 pg (27.0-33.4); MEAN CORPUSCULAR HGB CONC 31.3 g/dL (32.0-36.0); MEAN CORPUSCULAR VOLUME 65 fl (80-97); RED BLOOD COUNT 6.88 10^6/uL (4.35-5.55); RED CELL DISTRIBUTION WIDTH 17.5 % (11.5-14.0); WHITE BLOOD COUNT 7.5 10^3/uL (4.0-10.5)
[2016-05-06 06:14] LABS: DIRECT LDL 126 mg/dL (<100)
[2016-05-06 06:15] LABS: CREATINE KINASE MB 0.79 ng/mL (<4.55); TROPONIN I 0.055 ng/mL
[2016-05-06 06:46] LABS: BASOPHILS % (MANUAL) 0 % (0-2); EOSINOPHILS % (MANUAL) 1 % (0-6); LYMPHOCYTES % (MANUAL) 20 % (13-45); TOTAL CELLS COUNTED 100; TOXIC VACUOLATION PRESENT
[2016-05-06 06:47] LABS: ANISOCYTOSIS 1+; HYPOCHROMASIA 1+; MICROCYTOSIS 3+; OVALOCYTES SLIGHT; POIKILOCYTOSIS SLIGHT; POLYCHROMASIA SLIGHT; TARGET CELLS SLIGHT
[2016-05-06] MEDS ORDERED: PHARMACY COMMUNICATION ORDER MC NR (08:15)
[2016-05-06] MEDS ORDERED: TORSEMIDE 20 MG TABLET PO SCH (10:00)
[2016-05-06] MEDS: PANTOPRAZOLE SODIUM 40 MG VIAL IV SCH (10:34)
[2016-05-06] MEDS: DIGOXIN 0.125 MG TABLET PO SCH (10:35)
[2016-05-06] MEDS: DOCUSATE SODIUM 100 MG CAPSULE PO SCH ×2 (10:35→17:44)
[2016-05-06] MEDS: VALSARTAN 80 MG TABLET PO SCH (10:35)
[2016-05-06] MEDS: APIXABAN 5 MG TABLET PO SCH ×2 (10:36→17:44)
[2016-05-06] MEDS ORDERED: CARVEDILOL 3.125 MG TABLET PO ONE (12:00)
--- NOTE | 2016-05-06 17:01 | PDOC PROGRESS REPORT ---
Subjective Progress Note for:: 05/06/16 Subjective:: Breathing more comfortably with upper/midepigastric symptoms Physical Exam Vital Signs: Temp Pulse Resp BP Pulse Ox 98.2 F 91 18 108/60 100 05/06/16 16:49 05/06/16 16:49 05/06/16 16:49 05/06/16 16:49 05/06/16 16:49 Intake & Output 05/05/16 05/06/16 05/07/16 06:59 06:59 06:59 Intake Total 1389 Balance 1389 Weight 105 kg General appearance: PRESENT: no acute distress Head exam: PRESENT: normocephalic Eye exam: PRESENT: EOMI, PERRLA Ear exam: PRESENT: normal external ear exam Mouth exam: PRESENT: tongue midline Respiratory exam: PRESENT: clear to auscultation rikki Cardiovascular exam: PRESENT: RRR GI/Abdominal exam: PRESENT: soft, tenderness - midepi area Rectal exam: PRESENT: deferred Musculoskeletal exam: PRESENT: full ROM Neurological exam: PRESENT: alert, oriented to person, oriented to place, oriented to time, oriented to situation, CN II-XII grossly intact Psychiatric exam: PRESENT: appropriate affect Results Laboratory Results: 05/06/16 05:06 05/06/16 05:06 05/05/16 05/06/16 05/06/16 16:50 05:06 05:06 WBC 7.5 RBC 6.88 H Hgb 13.9 Hct 44.3 MCV 65 L MCH 20.2 L MCHC 31.3 L RDW 17.5 H Plt Count 150 Seg Neutrophils % Not Reportable Lymphocytes % Not Reportable Monocytes % Not Reportable Eosinophils % Not Reportable Basophils % Not Reportable Absolute Neutrophils Not Reportable Absolute Lymphocytes Not Reportable Absolute Monocytes Not Reportable Absolute Eosinophils Not Reportable Absolute Basophils Not Reportable Retic Count (auto) 0.87 Absolute Retic 0.060 Sodium 142.0 Potassium 4.5 Chloride 107 Carbon Dioxide 25 Anion Gap 10 BUN 16 Creatinine 1.36 H Est GFR ( Amer) > 60 Est GFR (Non-Af Amer) 53 L Glucose 91 Calcium 9.1 Iron 31 L TIBC 251 % Saturation 12 Ferritin 69.40 Triglycerides 84 Cholesterol 172.72 LDL Cholesterol Direct 126 H VLDL Cholesterol 17.0 HDL Cholesterol 38 L Amylase 71 Lipase 179.2 Vitamin B12 737.0 Folate 10.60 Stool Occult Blood 05/06/16 12:50 WBC RBC Hgb Hct MCV MCH MCHC RDW Plt Count Seg Neutrophils % Lymphocytes % Monocytes % Eosinophils % Basophils % Absolute Neutrophils Absolute Lymphocytes Absolute Monocytes Absolute Eosinophils Absolute Basophils Retic Count (auto) Absolute Retic Sodium Potassium Chloride Carbon Dioxide Anion Gap BUN Creatinine Est GFR ( Amer) Est GFR (Non-Af Amer) Glucose Calcium Iron TIBC % Saturation Ferritin Triglycerides Cholesterol LDL Cholesterol Direct VLDL Cholesterol HDL Cholesterol Amylase Lipase Vitamin B12 Folate Stool Occult Blood NEGATIVE 05/05/16 05/05/16 05/05/16 11:30 16:50 16:50 Creatine Kinase 63 CK-MB (CK-2) 0.89 Troponin I 0.047 0.055 NT-Pro-B Natriuret Pep 9710 H 05/05/16 05/05/16 05/06/16 22:35 22:35 05:06 Creatine Kinase 76 76 CK-MB (CK-2) 0.80 Troponin I 0.056 NT-Pro-B Natriuret Pep 05/06/16 05:06 Creatine Kinase CK-MB (CK-2) 0.79 Troponin I 0.055 NT-Pro-B Natriuret Pep Impressions: Abdomen X-Ray 05/05/16 00:00 IMPRESSION: NO RADIOGRAPHIC EVIDENCE FOR ACUTE ABDOMINAL DISEASE. Chest X-Ray 05/05/16 07:38 IMPRESSION: Atelectasis versus early pneumonia or aspiration right lower lobe. Clinical correlation is needed. Chest/Abdomen CTA 05/05/16 08:37 IMPRESSION: Positive for small emboli in the right lower lobe pulmonary arterial branches. No central PE. Assessment & Plan - Diagnosis (1) Epigastric pain Is this a current diagnosis for this admission?: YesPlan: Check his stool guaiacs, iron studies and recommend an EGD wi GI evaluation (2) Pulmonary embolism Qualifiers: Pulmonary embolism type: other Chronicity: acute Acute cor pulmonale presence: without acute cor pulmonale Qualified Code(s): I26.99 - Other pulmonary embolism without acute cor pulmonale Is this a current diagnosis for this admission?: YesPlan: Continue Lovenox with switch to Xarelto or Eliquis once decision made to proceed with EGD inpatient or outpatient. Would anticipate further eval - Time Time Spent with patient: 25-34 minutes Critical Time spent with patient: 15-24 minutes Medications reviewed and adjusted accordingly: Yes - Inpatient Certification Medical Necessity: Risk of Diagnosis Which Will Require Inpatient Eval/Care/ Monitoring
--- NOTE | 2016-05-06 18:52 | PDOC PROGRESS REPORT ---
Subjective Progress Note for:: 05/06/16 Subjective:: 1 discussion with patient regarding his heart failure today.Patient denies chest pain, abdominal pain, nausea, vomiting, fevers, chills, diarrhea, constipation, headache, new onset weakness. Patient continues to ascribe to shortness of breath, PND, orthopnea, dyspnea on exertion. Patient reports largely swelling is improved, but still present Physical Exam Vital Signs: Temp Pulse Resp BP Pulse Ox 98.2 F 90 16 108/60 97 05/06/16 16:49 05/06/16 17:12 05/06/16 17:12 05/06/16 16:49 05/06/16 17:12 Intake & Output 05/05/16 05/06/16 05/07/16 06:59 06:59 06:59 Intake Total 1389 600 Balance 1389 600 Weight 105 kg Exam: General: Awake alert and oriented x3, mild respiratory distress, tachypnea HEENT: AT/NC, PERRL, EOMI, oropharynx is moist, pink, no scleral icterus, no conjunctival injection Neck: + JVD, trachea midline Chest: Bilateral bibasal rales CV: IRR, normal S1 and S2, +3/6 SM over apex, +S3 Abdomen: Soft, nontender to palpation, mildly distended, active bowel sounds; no rebound, rigidity, or guarding Extremities: No cyanosis, clubbing; 2+ pitting edema Neuro: Cranial nerves II through XII are grossly intact without focal deficits; awake alert and orientedx3 Psych: Normal mood and affect Results Laboratory Results: 05/06/16 05:06 05/06/16 05:06 05/06/16 05/06/16 05/06/16 05:06 05:06 12:50 WBC 7.5 RBC 6.88 H Hgb 13.9 Hct 44.3 MCV 65 L MCH 20.2 L MCHC 31.3 L RDW 17.5 H Plt Count 150 Seg Neutrophils % Not Reportable Lymphocytes % Not Reportable Monocytes % Not Reportable Eosinophils % Not Reportable Basophils % Not Reportable Absolute Neutrophils Not Reportable Absolute Lymphocytes Not Reportable Absolute Monocytes Not Reportable Absolute Eosinophils Not Reportable Absolute Basophils Not Reportable Retic Count (auto) 0.87 Absolute Retic 0.060 Sodium 142.0 Potassium 4.5 Chloride 107 Carbon Dioxide 25 Anion Gap 10 BUN 16 Creatinine 1.36 H Est GFR ( Amer) > 60 Est GFR (Non-Af Amer) 53 L Glucose 91 Calcium 9.1 Iron 31 L TIBC 251 % Saturation 12 Ferritin 69.40 Triglycerides 84 Cholesterol 172.72 LDL Cholesterol Direct 126 H VLDL Cholesterol 17.0 HDL Cholesterol 38 L Vitamin B12 737.0 Folate 10.60 Stool Occult Blood NEGATIVE 05/05/16 05/05/16 05/05/16 11:30 16:50 16:50 Creatine Kinase 63 CK-MB (CK-2) 0.89 Troponin I 0.047 0.055 NT-Pro-B Natriuret Pep 9710 H 05/05/16 05/05/16 05/06/16 22:35 22:35 05:06 Creatine Kinase 76 76 CK-MB (CK-2) 0.80 Troponin I 0.056 NT-Pro-B Natriuret Pep 05/06/16 05:06 Creatine Kinase CK-MB (CK-2) 0.79 Troponin I 0.055 NT-Pro-B Natriuret Pep Impressions: Abdomen X-Ray 05/05/16 00:00 IMPRESSION: NO RADIOGRAPHIC EVIDENCE FOR ACUTE ABDOMINAL DISEASE. Chest X-Ray 05/05/16 07:38 IMPRESSION: Atelectasis versus early pneumonia or aspiration right lower lobe. Clinical correlation is needed. Chest/Abdomen CTA 05/05/16 08:37 IMPRESSION: Positive for small emboli in the right lower lobe pulmonary arterial branches. No central PE. Assessment & Plan - Diagnosis (1) Chronic kidney disease, stage II (mild) Is this a current diagnosis for this admission?: Yes (2) Congestive heart failure Qualifiers: Congestive heart failure type: combined Congestive heart failure chronicity: acute on chronic Qualified Code(s): I50.43 - Acute on chronic combined systolic (congestive) and diastolic (congestive) heart failure Is this a current diagnosis for this admission?: YesPlan: Patient currently volume overloaded. Patient has acute on chronic combined systolic and diastolic congestive heart failure. Echo performed on 05/05/2016 reveals an EF of 15%, grade 2/6 diastolic dysfunction, and moderate mitral regurgitation. Patient currently on Coreg, valsartan, Demadex, and digoxin. Continue strict I's and O's and daily weights. Heart failure nurse education. Have discussed at great length with patient how to control his heart failure. Patient will require a LifeVest prior to receiving a pacemaker/AICD. Appreciate cardiology input. (3) Essential hypertension Is this a current diagnosis for this admission?: YesPlan: Patient currently well-controlled on Coreg, valsartan. (4) Hyperlipidemia Is this a current diagnosis for this admission?: YesPlan: Patient currently on Lipitor. (5) Mitral regurgitation Qualifiers: Cardiac valve disease etiology: etiology unspecified Qualified Code( s): I34.0 - Nonrheumatic mitral (valve) insufficiency Is this a current diagnosis for this admission?: Yes (6) Pulmonary embolism Qualifiers: Pulmonary embolism type: other Chronicity: acute Acute cor pulmonale presence: without acute cor pulmonale Qualified Code(s): I26.99 - Other pulmonary embolism without acute cor pulmonale Is this a current diagnosis for this admission?: YesPlan: Patient currently on Eliquis twice a day. (7) Sleep apnea syndrome Qualifiers: Sleep apnea type: unspecified type Qualified Code(s): G47.30 - Sleep apnea, unspecified Is this a current diagnosis for this admission?: YesPlan: Continue CPAP. (8) Obesity (BMI 30.0-34.9) Is this a current diagnosis for this admission?: YesPlan: Dietary consult - Time Time Spent with patient: 35 or more minutes Medications reviewed and adjusted accordingly: Yes Anticipated discharge: Home with Homehealth Within: within 72 hours
--- NOTE | 2016-05-06 20:59 | PDOC PROGRESS REPORT ---
Subjective Progress Note for:: 05/06/16 Subjective:: Patient seems to be doing better with gradual improvement. Pt is denying any chest arm or neck discomfort. Patient denying any PND, orthopnea. Patient denied any sustained palpitations, dizziness, syncope, near syncope. Patient denying any fever chills. Patient denying any other significant discomfort. Patient is maintaining sinus rhythm. Patient's medications were optimized yesterday. Today we discussed prophylactic defibrillator placement and also interim LifeVest placement. Patient was seen by [facility] vest retail service representative Review of systems: Rest review of systems negative. Medications: Medications have been reviewed. Physical Exam Vital Signs: Temp Pulse Resp BP Pulse Ox 97.2 F 82 16 114/70 96 05/06/16 19:10 05/06/16 19:10 05/06/16 17:12 05/06/16 19:10 05/06/16 19:10 Intake & Output 05/05/16 05/06/16 05/07/16 06:59 06:59 06:59 Intake Total 1389 700 Balance 1389 700 Weight 105 kg Exam: GENERAL: well-nourished and in no acute distress. Alert and oriented x3 HEAD: Atraumatic, normocephalic. EYES: Pupils equal round and reactive to light, extraocular movements intact, sclera anicteric, conjunctiva are normal. ENT: TMs normal, nares patent, oropharynx clear without exudates. Moist mucous membranes. No oral ulcerations or bleeding gums noted NECK: supple without lymphadenopathy. Trachea is central. No cervical or axillary lymphadenopathy noted. Carotids are 2+, JVD 8-10 CM LUNGS: Respiration seems nonlabored, no significant accessory muscle action noted. Breath sounds clear to auscultation bilaterally and equal. No wheezes rales or rhonchi. No significant dullness noted on percussion. CHEST: Palpation of the chest wall shows no significant chest wall tenderness or abnormalities. HEART: Connell KILNMAN, No PSH, 1/6 CRIS aortic area, 1/6 coelho systolic murmur mitral area, no rubs, no gallops. ABDOMEN: Soft, no significant tenderness appreciated, normoactive bowel sounds. No guarding, no rebound. No rigidity noted . No masses appreciated. EXTREMITIES: Pedal pulses are 1-2+, no calf tenderness noted. No clubbing or cyanosis.trace to 1+ pedal edema noted NEUROLOGICAL: Focused neurological exam showed no significant neurologic deficit. Normal speech, no focal weakness appreciated. PSYCH: Normal mood, normal affect. Judgment and insight within normal limits. SKIN: No significant ecchymosis, rash, ulcerations or signs of pruritus noted. MUSCULOSKELETAL EXAM: No significant joint swelling noted. Results Laboratory Results: 05/06/16 05:06 05/06/16 05:06 05/06/16 05/06/16 05/06/16 05:06 05:06 12:50 WBC 7.5 RBC 6.88 H Hgb 13.9 Hct 44.3 MCV 65 L MCH 20.2 L MCHC 31.3 L RDW 17.5 H Plt Count 150 Seg Neutrophils % Not Reportable Lymphocytes % Not Reportable Monocytes % Not Reportable Eosinophils % Not Reportable Basophils % Not Reportable Absolute Neutrophils Not Reportable Absolute Lymphocytes Not Reportable Absolute Monocytes Not Reportable Absolute Eosinophils Not Reportable Absolute Basophils Not Reportable Retic Count (auto) 0.87 Absolute Retic 0.060 Sodium 142.0 Potassium 4.5 Chloride 107 Carbon Dioxide 25 Anion Gap 10 BUN 16 Creatinine 1.36 H Est GFR ( Amer) > 60 Est GFR (Non-Af Amer) 53 L Glucose 91 Calcium 9.1 Iron 31 L TIBC 251 % Saturation 12 Ferritin 69.40 Triglycerides 84 Cholesterol 172.72 LDL Cholesterol Direct 126 H VLDL Cholesterol 17.0 HDL Cholesterol 38 L Vitamin B12 737.0 Folate 10.60 Stool Occult Blood NEGATIVE 05/05/16 05/05/16 05/05/16 11:30 16:50 16:50 Creatine Kinase 63 CK-MB (CK-2) 0.89 Troponin I 0.047 0.055 NT-Pro-B Natriuret Pep 9710 H 05/05/16 05/05/16 05/06/16 22:35 22:35 05:06 Creatine Kinase 76 76 CK-MB (CK-2) 0.80 Troponin I 0.056 NT-Pro-B Natriuret Pep 05/06/16 05:06 Creatine Kinase CK-MB (CK-2) 0.79 Troponin I 0.055 NT-Pro-B Natriuret Pep Impressions: Abdomen X-Ray 05/05/16 00:00 IMPRESSION: NO RADIOGRAPHIC EVIDENCE FOR ACUTE ABDOMINAL DISEASE. Chest X-Ray 05/05/16 07:38 IMPRESSION: Atelectasis versus early pneumonia or aspiration right lower lobe. Clinical correlation is needed. Chest/Abdomen CTA 05/05/16 08:37 IMPRESSION: Positive for small emboli in the right lower lobe pulmonary arterial branches. No central PE. Assessment & Plan - Diagnosis (1) Cardiomyopathy Qualifiers: Cardiomyopathy type: unspecified Qualified Code(s): I42.9 - Cardiomyopathy, unspecified Is this a current diagnosis for this admission?: Yes (2) Mitral regurgitation Qualifiers: Cardiac valve disease etiology: etiology unspecified Qualified Code( s): I34.0 - Nonrheumatic mitral (valve) insufficiency Is this a current diagnosis for this admission?: Yes (3) Chronic kidney disease, stage II (mild) Is this a current diagnosis for this admission?: Yes (4) Dyspnea Qualifiers: Dyspnea type: unspecified Qualified Code(s): R06.00 - Dyspnea, unspecified Is this a current diagnosis for this admission?: Yes (5) Essential hypertension Is this a current diagnosis for this admission?: Yes (6) Pulmonary embolism Qualifiers: Pulmonary embolism type: other Chronicity: acute Acute cor pulmonale presence: without acute cor pulmonale Qualified Code(s): I26.99 - Other pulmonary embolism without acute cor pulmonale Is this a current diagnosis for this admission?: Yes (7) Tachycardia Is this a current diagnosis for this admission?: Yes (8) Congestive heart failure Qualifiers: Congestive heart failure type: combined Congestive heart failure chronicity: acute on chronic Qualified Code(s): I50.43 - Acute on chronic combined systolic (congestive) and diastolic (congestive) heart failure Is this a current diagnosis for this admission?: Yes (9) Sleep apnea syndrome Qualifiers: Sleep apnea type: unspecified type Qualified Code(s): G47.30 - Sleep apnea, unspecified Is this a current diagnosis for this admission?: Yes - Notes Notes: Patient is showing gradual improvement. Patient medical regimen is being optimized. Significant time spent at discussing long-term prognosis, role of prophylactic defibrillator, external wearable defibrillator, sleep studies etc. Patient advised in salt and fluid restriction. Patient would benefit from very close cardiology follow-up. I'll be happy to provide this. Will increase carvedilol to 6.25 mg by mouth twice a day prior to discharge. - Time Time with patient: Greater than 35 minutes - CODE STATUS was discussed, patient remains full code. Surrogate decision-maker unchanged. Multiple medical problems were addressed.More than 50% of the time spent coordinating care, discussing management plans with involved caregivers. Management plans discussed with involved personnels. Medical decision making was of moderate complexity.
[2016-05-06] MEDS: ATORVASTATIN CALCIUM 10 MG TABLET PO SCH (21:44)
[2016-05-06] MEDS ORDERED: CARVEDILOL 3.125 MG TABLET PO SCH (22:00)
[2016-05-07 05:13] LABS: ANION GAP 11 (5-19); BLOOD UREA NITROGEN 17 mg/dL (7-20); CALCIUM 8.6 mg/dL (8.4-10.2); CARBON DIOXIDE 26 mmol/L (22-30); CHLORIDE 105 mmol/L (98-107); CREATININE RESULT 1.38 mg/dL (0.52-1.25); GLUCOSE 96 mg/dL (75-110); MAGNESIUM 1.8 mg/dL (1.6-2.3); POTASSIUM 4.3 mmol/L (3.6-5.0)
[2016-05-07] MEDS: LANSOPRAZOLE 15 MG TAB.RAP.DR PO SCH ×2 (05:48→17:57)
[2016-05-07] MEDS: IPRATROPIUM/ALBUTEROL 0.5-2.5 MG/3 ML AMPUL NEB PRN (08:26)
--- NOTE | 2016-05-07 09:24 | EKG REPORT ---
SEVERITY:- ABNORMAL ECG - SINUS RHYTHM VENTRICULAR PREMATURE COMPLEX PROBABLE LEFT ATRIAL ABNORMALITY LVH WITH SECONDARY REPOLARIZATION ABNORMALITY : Confirmed by: Zohreh Robles 07-May-2016 09:23:30
[2016-05-07] MEDS: DIGOXIN 0.125 MG TABLET PO SCH (09:45)
[2016-05-07] MEDS: DOCUSATE SODIUM 100 MG CAPSULE PO SCH ×2 (09:45→17:56)
[2016-05-07] MEDS: APIXABAN 5 MG TABLET PO SCH ×2 (09:45→18:10)
[2016-05-07] MEDS: TORSEMIDE 20 MG TABLET PO SCH ×2 (09:46→17:56)
[2016-05-07] MEDS: VALSARTAN 80 MG TABLET PO SCH (09:46)
[2016-05-07] MEDS ORDERED: FERUMOXYTOL (NON-ESRD) 510 MG/NS 100 ML IV ONE ×2 (11:00)
[2016-05-07] MEDS: CARVEDILOL 6.25 MG TABLET PO SCH ×2 (11:02→21:05)
--- NOTE | 2016-05-07 17:04 | PDOC PROGRESS REPORT ---
Subjective Progress Note for:: 05/07/16 Subjective:: Patient seems to be doing better with gradual improvement. Pt is denying any chest arm or neck discomfort. Patient denying any PND, orthopnea. Patient denied any sustained palpitations, dizziness, syncope, near syncope. Patient denying any fever chills. Patient denying any other significant discomfort. Patient is maintaining sinus rhythm. Patient's medications are being optimized yesterday. Today we again discussed prophylactic defibrillator placement and also interim LifeVest placement. Patient was seen by [employer] vest customer service representative. Today I increased carvedilol to 6.25 mg by mouth twice a day. Review of systems: Rest review of systems negative. Medications: Medications have been reviewed. Physical Exam Vital Signs: Temp Pulse Resp BP Pulse Ox 98.4 F 78 18 109/69 99 05/07/16 16:00 05/07/16 16:00 05/07/16 16:00 05/07/16 16:00 05/07/16 16:00 Intake & Output 05/06/16 05/07/16 05/08/16 06:59 06:59 06:59 Intake Total 1389 1000 840 Balance 1389 1000 840 Weight 105 kg 99.7 kg Exam: GENERAL: well-nourished and in no acute distress. Alert and oriented x3 HEAD: Atraumatic, normocephalic. EYES: Pupils equal round and reactive to light, extraocular movements intact, sclera anicteric, conjunctiva are normal. ENT: TMs normal, nares patent, oropharynx clear without exudates. Moist mucous membranes. No oral ulcerations or bleeding gums noted NECK: supple without lymphadenopathy. Trachea is central. No cervical or axillary lymphadenopathy noted. Carotids are 2+, JVD 10-12 CM LUNGS: Respiration seems nonlabored, no significant accessory muscle action noted. Breath sounds clear to auscultation bilaterally and equal. No wheezes rales or rhonchi. No significant dullness noted on percussion. CHEST: Palpation of the chest wall shows no significant chest wall tenderness or abnormalities. HEART: [place] [employer] ASSISTANT, No PSH, 1/6 CRIS aortic area, 1/6 coelho systolic murmur mitral area, no rubs, no gallops. ABDOMEN: Soft, no significant tenderness appreciated, normoactive bowel sounds. No guarding, no rebound. No rigidity noted . No masses appreciated. EXTREMITIES: Pedal pulses are 1-2+, no calf tenderness noted. No clubbing or cyanosis.trace to 1+ pedal edema noted NEUROLOGICAL: Focused neurological exam showed no significant neurologic deficit. Normal speech, no focal weakness appreciated. PSYCH: Normal mood, normal affect. Judgment and insight within normal limits. SKIN: No significant ecchymosis, rash, ulcerations or signs of pruritus noted. MUSCULOSKELETAL EXAM: No significant joint swelling noted. Results Laboratory Results: 05/06/16 05:06 05/07/16 03:55 05/06/16 05/07/16 05/07/16 05:06 03:55 03:55 Sodium 142.0 Potassium 4.3 Chloride 105 Carbon Dioxide 26 Anion Gap 11 BUN 17 Creatinine 1.38 H Est GFR ( Amer) > 60 Est GFR (Non-Af Amer) 53 L Glucose 96 Calcium 8.6 Magnesium 1.8 Transferrin 186 L TSH 6.24 H 05/05/16 05/05/16 05/05/16 11:30 16:50 16:50 Creatine Kinase 63 CK-MB (CK-2) 0.89 Troponin I 0.047 0.055 NT-Pro-B Natriuret Pep 9710 H 05/05/16 05/05/16 05/06/16 22:35 22:35 05:06 Creatine Kinase 76 76 CK-MB (CK-2) 0.80 Troponin I 0.056 NT-Pro-B Natriuret Pep 05/06/16 05:06 Creatine Kinase CK-MB (CK-2) 0.79 Troponin I 0.055 NT-Pro-B Natriuret Pep Impressions: Abdomen X-Ray 05/05/16 00:00 IMPRESSION: NO RADIOGRAPHIC EVIDENCE FOR ACUTE ABDOMINAL DISEASE. Chest X-Ray 05/05/16 07:38 IMPRESSION: Atelectasis versus early pneumonia or aspiration right lower lobe. Clinical correlation is needed. Chest/Abdomen CTA 05/05/16 08:37 IMPRESSION: Positive for small emboli in the right lower lobe pulmonary arterial branches. No central PE. Assessment & Plan - Diagnosis (1) Cardiomyopathy Qualifiers: Cardiomyopathy type: unspecified Qualified Code(s): I42.9 - Cardiomyopathy, unspecified Is this a current diagnosis for this admission?: Yes (2) Mitral regurgitation Qualifiers: Cardiac valve disease etiology: etiology unspecified Qualified Code( s): I34.0 - Nonrheumatic mitral (valve) insufficiency Is this a current diagnosis for this admission?: Yes (3) Chronic kidney disease, stage II (mild) Is this a current diagnosis for this admission?: Yes (4) Dyspnea Qualifiers: Dyspnea type: unspecified Qualified Code(s): R06.00 - Dyspnea, unspecified Is this a current diagnosis for this admission?: Yes (5) Essential hypertension Is this a current diagnosis for this admission?: Yes (6) Pulmonary embolism Qualifiers: Pulmonary embolism type: other Chronicity: acute Acute cor pulmonale presence: without acute cor pulmonale Qualified Code(s): I26.99 - Other pulmonary embolism without acute cor pulmonale Is this a current diagnosis for this admission?: Yes (7) Tachycardia Is this a current diagnosis for this admission?: Yes (8) Congestive heart failure Qualifiers: Congestive heart failure type: combined Congestive heart failure chronicity: acute on chronic Qualified Code(s): I50.43 - Acute on chronic combined systolic (congestive) and diastolic (congestive) heart failure Is this a current diagnosis for this admission?: Yes (9) Sleep apnea syndrome Qualifiers: Sleep apnea type: unspecified type Qualified Code(s): G47.30 - Sleep apnea, unspecified Is this a current diagnosis for this admission?: Yes - Notes Notes: CODE STATUS was discussed, patient remains full code. Multiple medical problems were addressed.More than 50% of the time spent coordinating care, discussing management plans with involved caregivers. Management plans discussed with involved personnels. Medical decision making was of moderate complexity. - Time Time with patient: Greater than 35 minutes - More than 50% of the time spent coordinating care, discussing management plans with involved caregivers. Management plans discussed with involved personnels. Medical decision making was of moderate complexity. Medications reviewed and adjusted accordingly: Yes
[2016-05-07] MEDS ORDERED: TRAZODONE HCL 50 MG TABLET PO PRN (18:11)
--- NOTE | 2016-05-07 18:19 | PDOC PROGRESS REPORT ---
Subjective Progress Note for:: 05/07/16 Subjective:: Patient reports he's feeling significantly better today. He denies chest pain, shortness of breath, PND, orthopnea, but still has some dyspnea on exertion. Patient denies chest pain, shortness of breath, abdominal pain, nausea, vomiting , fevers, chills, diarrhea, constipation, headache, new onset weakness. Patient reports occasional indigestion but none since admission and denies overt symptoms of abdominal pain. Physical Exam Vital Signs: Temp Pulse Resp BP Pulse Ox 98.4 F 92 16 109/69 97 05/07/16 16:00 05/07/16 17:25 05/07/16 17:25 05/07/16 16:00 05/07/16 17:25 Intake & Output 05/06/16 05/07/16 05/08/16 06:59 06:59 06:59 Intake Total 1389 1000 840 Balance 1389 1000 840 Weight 105 kg 99.7 kg Exam: General: Awake alert and oriented x3, no acute respiratory distress HEENT: AT/NC, PERRL, EOMI, oropharynx is moist, pink, no scleral icterus, no conjunctival injection Neck: + JVD, trachea midline Chest: Clear to auscultation bilaterally CV: IRR, normal S1 and S2, +3/6 SM over apex Abdomen: Soft, nontender to palpation, mildly distended, active bowel sounds; no rebound, rigidity, or guarding Extremities: No cyanosis, clubbing; trace edema Neuro: Cranial nerves II through XII are grossly intact without focal deficits; awake alert and orientedx3 Psych: Normal mood and affect Results Laboratory Results: 05/06/16 05:06 05/07/16 03:55 05/06/16 05/07/16 05/07/16 05:06 03:55 03:55 Sodium 142.0 Potassium 4.3 Chloride 105 Carbon Dioxide 26 Anion Gap 11 BUN 17 Creatinine 1.38 H Est GFR ( Amer) > 60 Est GFR (Non-Af Amer) 53 L Glucose 96 Calcium 8.6 Magnesium 1.8 Transferrin 186 L TSH 6.24 H 05/05/16 05/05/16 05/05/16 11:30 16:50 16:50 Creatine Kinase 63 CK-MB (CK-2) 0.89 Troponin I 0.047 0.055 NT-Pro-B Natriuret Pep 9710 H 05/05/16 05/05/16 05/06/16 22:35 22:35 05:06 Creatine Kinase 76 76 CK-MB (CK-2) 0.80 Troponin I 0.056 NT-Pro-B Natriuret Pep 05/06/16 05:06 Creatine Kinase CK-MB (CK-2) 0.79 Troponin I 0.055 NT-Pro-B Natriuret Pep Impressions: Abdomen X-Ray 05/05/16 00:00 IMPRESSION: NO RADIOGRAPHIC EVIDENCE FOR ACUTE ABDOMINAL DISEASE. Chest X-Ray 05/05/16 07:38 IMPRESSION: Atelectasis versus early pneumonia or aspiration right lower lobe. Clinical correlation is needed. Chest/Abdomen CTA 05/05/16 08:37 IMPRESSION: Positive for small emboli in the right lower lobe pulmonary arterial branches. No central PE. Assessment & Plan - Diagnosis (1) Chronic kidney disease, stage II (mild) Is this a current diagnosis for this admission?: YesPlan: Renally adjust medication if needed (2) Congestive heart failure Qualifiers: Congestive heart failure type: combined Congestive heart failure chronicity: acute on chronic Qualified Code(s): I50.43 - Acute on chronic combined systolic (congestive) and diastolic (congestive) heart failure Is this a current diagnosis for this admission?: YesPlan: Patient currently nearly euvolemic. Patient has acute on chronic combined systolic and diastolic congestive heart failure. Echo performed on 05/05/2016 reveals an EF of 15%, grade 2/6 diastolic dysfunction, and moderate mitral regurgitation. Patient currently on Coreg, valsartan, Demadex, and digoxin. Plan to transition patient to Lasix twice a day. Continue strict I's and O's and daily weights. Heart failure nurse education. Patient will require a LifeVest prior to receiving a pacemaker/AICD. Appreciate cardiology input. (3) Essential hypertension Is this a current diagnosis for this admission?: YesPlan: Patient currently well-controlled on Coreg, valsartan. (4) Hyperlipidemia Qualifiers: Hyperlipidemia type: unspecified Qualified Code(s): E78.5 - Hyperlipidemia, unspecified Is this a current diagnosis for this admission?: YesPlan: Patient currently on Lipitor. (5) Mitral regurgitation Qualifiers: Cardiac valve disease etiology: etiology unspecified Qualified Code( s): I34.0 - Nonrheumatic mitral (valve) insufficiency Is this a current diagnosis for this admission?: Yes (6) Pulmonary embolism Qualifiers: Pulmonary embolism type: other Chronicity: acute Acute cor pulmonale presence: without acute cor pulmonale Qualified Code(s): I26.99 - Other pulmonary embolism without acute cor pulmonale Is this a current diagnosis for this admission?: YesPlan: Patient currently on Eliquis twice a day. Will ambulate patient to see if he requires home O2 prior to discharge. (7) Sleep apnea syndrome Qualifiers: Sleep apnea type: unspecified type Qualified Code(s): G47.30 - Sleep apnea, unspecified Is this a current diagnosis for this admission?: YesPlan: Continue CPAP. (8) Obesity (BMI 30.0-34.9) Is this a current diagnosis for this admission?: Yes - Time Time Spent with patient: 35 or more minutes Medications reviewed and adjusted accordingly: Yes
[2016-05-07] MEDS: ATORVASTATIN CALCIUM 10 MG TABLET PO SCH (21:05)
[2016-05-08] MEDS: LANSOPRAZOLE 15 MG TAB.RAP.DR PO SCH ×2 (06:07→16:17)
[2016-05-08] MEDS: VALSARTAN 80 MG TABLET PO SCH (09:41)
[2016-05-08] MEDS: DOCUSATE SODIUM 100 MG CAPSULE PO SCH (09:42)
[2016-05-08] MEDS: APIXABAN 5 MG TABLET PO SCH (09:42)
[2016-05-08] MEDS: CARVEDILOL 6.25 MG TABLET PO SCH (09:42)
[2016-05-08] MEDS: TORSEMIDE 20 MG TABLET PO SCH (09:42)
[2016-05-08] MEDS: DIGOXIN 0.125 MG TABLET PO SCH (09:42)
[2016-05-08 11:17] LABS: FREE T3 3.37 pg/mL (2.77-5.27)
[2016-05-08 12:58] VITALS: BP 135/75
--- NOTE | 2016-05-08 18:35 | PDOC PROGRESS REPORT ---
Subjective Progress Note for:: 05/08/16 Subjective:: Patient seems to be doing better with gradual improvement. Pt is denying any chest arm or neck discomfort. Patient denying any PND, orthopnea. Patient denied any sustained palpitations, dizziness, syncope, near syncope. Patient denying any fever chills. Patient denying any other significant discomfort. Patient is maintaining sinus rhythm. Patient's medications are being optimized yesterday. Today we again discussed prophylactic defibrillator placement and also interim LifeVest placement. Patient was seen by 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 Patient has had explanation of external defibrillator in full detail. Patient also given appointment for cardiology follow-up. Review of systems: Rest review of systems negative. Medications: Medications have been reviewed. Physical Exam Vital Signs: Temp Pulse Resp BP Pulse Ox 98.4 F 95 18 135/75 H 98 05/08/16 15:37 05/08/16 15:54 05/08/16 15:54 05/08/16 15:37 05/08/16 15:54 Intake & Output 05/07/16 05/08/16 05/09/16 06:59 06:59 06:59 Intake Total 1000 1190 Output Total 1600 Balance 1000 -410 Weight 99.7 kg 100 kg Exam: GENERAL: well-nourished and in no acute distress. Alert and oriented x3 HEAD: Atraumatic, normocephalic. EYES: Pupils equal round and reactive to light, extraocular movements intact, sclera anicteric, conjunctiva are normal. ENT: TMs normal, nares patent, oropharynx clear without exudates. Moist mucous membranes. No oral ulcerations or bleeding gums noted NECK: supple without lymphadenopathy. Trachea is central. No cervical or axillary lymphadenopathy noted. Carotids are 2+, JVD 8 CM LUNGS: Respiration seems nonlabored, no significant accessory muscle action noted. Breath sounds clear to auscultation bilaterally and equal. No wheezes rales or rhonchi. No significant dullness noted on percussion. CHEST: Palpation of the chest wall shows no significant chest wall tenderness or abnormalities. 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 ABDOMEN: Soft, no significant tenderness appreciated, normoactive bowel sounds. No guarding, no rebound. No rigidity noted . No masses appreciated. EXTREMITIES: Pedal pulses are 1-2+, no calf tenderness noted. No clubbing or cyanosis.trace to 1+ pedal edema noted NEUROLOGICAL: Focused neurological exam showed no significant neurologic deficit. Normal speech, no focal weakness appreciated. PSYCH: Normal mood, normal affect. Judgment and insight within normal limits. SKIN: No significant ecchymosis, rash, ulcerations or signs of pruritus noted. MUSCULOSKELETAL EXAM: No significant joint swelling noted. Results Laboratory Results: 05/06/16 05:06 05/07/16 03:55 05/07/16 03:55 Free T4 1.28 Free T3 pg/mL 3.37 05/05/16 05/05/16 05/05/16 11:30 16:50 16:50 Creatine Kinase 63 CK-MB (CK-2) 0.89 Troponin I 0.047 0.055 NT-Pro-B Natriuret Pep 9710 H 05/05/16 05/05/16 05/06/16 22:35 22:35 05:06 Creatine Kinase 76 76 CK-MB (CK-2) 0.80 Troponin I 0.056 NT-Pro-B Natriuret Pep 05/06/16 05:06 Creatine Kinase CK-MB (CK-2) 0.79 Troponin I 0.055 NT-Pro-B Natriuret Pep Impressions: Abdomen X-Ray 05/05/16 00:00 IMPRESSION: NO RADIOGRAPHIC EVIDENCE FOR ACUTE ABDOMINAL DISEASE. Chest X-Ray 05/05/16 07:38 IMPRESSION: Atelectasis versus early pneumonia or aspiration right lower lobe. Clinical correlation is needed. Chest/Abdomen CTA 05/05/16 08:37 IMPRESSION: Positive for small emboli in the right lower lobe pulmonary arterial branches. No central PE. Assessment & Plan - Diagnosis (1) Cardiomyopathy Qualifiers: Cardiomyopathy type: unspecified Qualified Code(s): I42.9 - Cardiomyopathy, unspecified Is this a current diagnosis for this admission?: Yes (2) Mitral regurgitation Qualifiers: Cardiac valve disease etiology: etiology unspecified Qualified Code( s): I34.0 - Nonrheumatic mitral (valve) insufficiency Is this a current diagnosis for this admission?: Yes (3) Chronic kidney disease, stage II (mild) Is this a current diagnosis for this admission?: Yes (4) Dyspnea Qualifiers: Dyspnea type: unspecified Qualified Code(s): R06.00 - Dyspnea, unspecified Is this a current diagnosis for this admission?: Yes (5) Essential hypertension Is this a current diagnosis for this admission?: Yes (6) Pulmonary embolism Qualifiers: Pulmonary embolism type: other Chronicity: acute Acute cor pulmonale presence: without acute cor pulmonale Qualified Code(s): I26.99 - Other pulmonary embolism without acute cor pulmonale Is this a current diagnosis for this admission?: Yes (7) Tachycardia Is this a current diagnosis for this admission?: Yes (8) Congestive heart failure Qualifiers: Congestive heart failure type: combined Congestive heart failure chronicity: acute on chronic Qualified Code(s): I50.43 - Acute on chronic combined systolic (congestive) and diastolic (congestive) heart failure Is this a current diagnosis for this admission?: Yes (9) Sleep apnea syndrome Qualifiers: Sleep apnea type: unspecified type Qualified Code(s): G47.30 - Sleep apnea, unspecified Is this a current diagnosis for this admission?: Yes - Notes Notes: Patient has shown significant improvement since admission. He seems euvolemic. Kidney functions have remained stable. Medical management has been optimized. Patient has been instructed in proper use of external wearable defibrillator. Explained to the patient that he would need very close follow- up. Patient will also need to continue oral anticoagulant for pulmonary embolism. Patient also educated about CHF pathway. Patient understands all this. Significant time spent in educating patient. Patient's medications were reviewed. Patient advised in continuing positive air pressure therapy at night. Patient was noted to be hypoxemic secondary to pulmonary embolism and possibly underlying CHF. Patient to continue with oxygen therapy. Patient will need to be monitored for any progression of mitral regurgitation. If mitral regurgitation does not improve, then patient may need to be sent for mitral valve repairs/replacement surgery. We will be happy to monitor this in the office. - Time Time with patient: Greater than 35 minutes - CODE STATUS was discussed, patient remains full code. Surrogate decision-maker unchanged. Multiple medical problems were addressed.More than 50% of the time spent coordinating care, discussing management plans with involved caregivers. Management plans discussed with involved personnels. Medical decision making was of moderate complexity.
--- NOTE | 2016-05-09 06:59 | PDOC DISCHARGE SUMMARY ---
General - Admit/Disc Date/PCP Admission Date/Primary Care Provider: 05/05/16 10:43 RADHA DASILVA Discharge Date: 05/09/16 - Discharge Diagnosis (1) Pulmonary embolism Is this a current diagnosis for this admission?: Yes (2) Congestive heart failure Is this a current diagnosis for this admission?: Yes (3) Chronic kidney disease, stage II (mild) Is this a current diagnosis for this admission?: Yes (4) Essential hypertension Is this a current diagnosis for this admission?: Yes (5) Hyperlipidemia Is this a current diagnosis for this admission?: Yes (6) Mitral regurgitation Is this a current diagnosis for this admission?: Yes (7) Sleep apnea syndrome Is this a current diagnosis for this admission?: Yes (8) Obesity (BMI 30.0-34.9) Is this a current diagnosis for this admission?: Yes (9) Acute hypoxemic respiratory failure Is this a current diagnosis for this admission?: Yes - Additional Information Resuscitation Status: Full Code Discharge Diet: Cardiac Discharge Activity: Activity As Tolerated, Balance Activity w/Rest, Weigh Daily Home Medications: Atorvastatin Calcium [Lipitor 20 mg Tablet] 20 mg PO DAILY 05/07/16 Apixaban [Eliquis 5 mg Tablet] 5 mg PO BID #60 tablet 05/08/16 Apixaban [Eliquis 5 mg Tablet] 10 mg PO BID #10 tablet 05/08/16 Carvedilol [Coreg 6.25 mg Tablet] 6.25 mg PO Q12 #60 tablet 05/08/16 Digoxin [Lanoxin 0.125 mg Tablet] 0.125 mg PO DAILY #30 tablet 05/08/16 Docusate Sodium [Colace 100 mg Capsule] 100 mg PO BID #60 capsule 05/08/16 Torsemide [Demadex 20 mg Tablet] 10 mg PO BID #60 tablet 05/08/16 Valsartan [Diovan 80 mg Tablet] 80 mg PO DAILY #30 tablet 05/08/16 History of Present Illness History of Present Illness: TIKI FRIEDMAN is a 60 year old male presents to the emergency department from home with a several week history of progressive shortness of breath, worse at night. He was recently seen a sleep study and diagnosed with sleep apnea placed on CPAP machine for approximately the last 6 weeks but has not noticed any improvement in his dyspnea, however he does state he sleeps better than he ever has before. He reports feeling "bloated", rapid shallow breathing worse with lying flat with associated chills and a sensation of early satiety. He also describes sharp, epigastric pain that waxes and wanes and is nonradiating, relieved with eating and worse with certain positions and palpation but is not associated with chest pain, palpitations, lower extremities swelling, sicca B or presyncope. He denies cough, congestion, fevers, chills, nausea vomiting diarrhea, constipation, wheezing. He reports taking a 19 hour trip to [place] by train where he was largely confined to his seat and did not plan well for such a long trip meaning he did not stay hydrated or eat well during this trip. Shortly thereafter he noted pain in his left calf and within a week he started feeling some dyspnea as described above. Evaluation in the emergency department including CTA of the chest shows a right lower lobe pulmonary embolus is likely extubation for the vast majority of his symptoms. He is not hypoxic but he is to get back and tachycardic and so we were asked to admit for further evaluation and management. He was given a dose of Lovenox 1 mg/kg subcutaneous 1 in the emergency brother. Hospital Course Hospital Course: Patient was found in the emergency department to have a right lower lobe pulmonary embolus, and echocardiogram reveals an EF of 15%. Patient was placed on telemetry and monitored for arrhythmia while he was diuresed. Patient was overtly volume overloaded, secondary to acute on chronic systolic and diastolic congestive heart failure. Patient was also found to have moderate mitral regurgitation. Patient diuresed quite quickly and easily. Congestive heart failure education was provided by physician, nurse educator, pharmacy, and nursing staff. For patient's pulmonary embolus, he was started Lovenox initially and then transition to Eliquis. Patient was seen by cardiology and he will follow with them upon discharge. Patient was also seen by hematology who recommended Eliquis. After successful diuresis, patient was ambulated and did after approximately 100-150 feet drop to 88%. Home oxygen was set up for patient to be used upon ambulation and at night as a bleed through his CPAP. The importance of wearing his oxygen and being compliant with his medications were stressed patient. He is discharged home in stable condition with LifeVest. Physical Exam Vital Signs: Temp Pulse Resp BP Pulse Ox 98.4 F 95 18 135/75 H 98 05/08/16 15:37 05/08/16 15:54 05/08/16 15:54 05/08/16 15:37 05/08/16 15:54 Intake & Output 05/07/16 05/08/16 05/09/16 06:59 06:59 06:59 Intake Total 1000 1190 Output Total 1600 Balance 1000 -410 Weight 99.7 kg 100 kg Exam: General: Awake alert and oriented x3, no acute respiratory distress HEENT: AT/NC, PERRL, EOMI, oropharynx is moist, pink, no scleral icterus, no conjunctival injection Neck: no, trachea midline Chest: Clear to auscultation bilaterally CV: normal S1 and S2, +3/6 SM over apex Abdomen: Soft, nontender to palpation, mildly distended, active bowel sounds; no rebound, rigidity, or guarding Extremities: No cyanosis, clubbing, edema Neuro: Cranial nerves II through XII are grossly intact without focal deficits; awake alert and orientedx3 Psych: Normal mood and affect Results Laboratory Results: 05/06/16 05:06 05/07/16 03:55 05/07/16 03:55 Free T4 1.28 Free T3 pg/mL 3.37 05/05/16 05/05/16 05/05/16 11:30 16:50 16:50 Creatine Kinase 63 CK-MB (CK-2) 0.89 Troponin I 0.047 0.055 NT-Pro-B Natriuret Pep 9710 H 05/05/16 05/05/16 05/06/16 22:35 22:35 05:06 Creatine Kinase 76 76 CK-MB (CK-2) 0.80 Troponin I 0.056 NT-Pro-B Natriuret Pep 05/06/16 05:06 Creatine Kinase CK-MB (CK-2) 0.79 Troponin I 0.055 NT-Pro-B Natriuret Pep Impressions: Abdomen X-Ray 05/05/16 00:00 IMPRESSION: NO RADIOGRAPHIC EVIDENCE FOR ACUTE ABDOMINAL DISEASE. Chest X-Ray 05/05/16 07:38 IMPRESSION: Atelectasis versus early pneumonia or aspiration right lower lobe. Clinical correlation is needed. Chest/Abdomen CTA 05/05/16 08:37 IMPRESSION: Positive for small emboli in the right lower lobe pulmonary arterial branches. No central PE. Qualifiers PATEINT BEING DISCHARGED WITH ANY OF THE FOLLOWING DIAGNOSIS?: Heart Failure HF Pt being discharged on ACEI for LVEF less than 40%?: No Reason(s) for not prescribing ACEI:: Not indicated - On ARB HF Pt being discharged on ARBS for LVEF less than 40%?: Yes HF Pt with Afib discharged with Warfarin?: No Reason(s) for not prescribing Warfarin:: Not indicated - No A. fib, on Eliquis HF Pt discharged on evidence-based Beta Du?: Yes Plan Time Spent: Greater than 30 Minutes
[2016-05-13] MEDS ORDERED: APIXABAN 5 MG TABLET PO SCH (10:00)
== END 2016-05-08 16:30 | disposition home health service (06) | DRG 291 ==
LOC: ER 07:08 → OBSVTOIN 10:43 → EH 10:43 → 4N 11:53
PROVIDERS: ADMIT Internal Medicine; ATTEND Internal Medicine
PROC: 3E0234Z Introduction of Serum, Toxoid and Vaccine into Muscle, Percutaneous Approach (ICD-10-PCS; principal; 2016-05-08)
DX: I13.0 Hypertensive heart and chronic kidney disease with heart failure and stage 1 through stage 4 chronic kidney disease, or unspecified chronic kidney disease (principal); I26.99 Other pulmonary embolism without acute cor pulmonale; I50.43 Acute on chronic combined systolic (congestive) and diastolic (congestive) heart failure; J96.01 Acute respiratory failure with hypoxia; I42.9 Cardiomyopathy, unspecified; G47.33 Obstructive sleep apnea (adult) (pediatric); E78.5 Hyperlipidemia, unspecified; I34.0 Nonrheumatic mitral (valve) insufficiency; R00.0 Tachycardia, unspecified; N18.2 Chronic kidney disease, stage 2 (mild); M19.90 Unspecified osteoarthritis, unspecified site; R10.13 Epigastric pain; E66.9 Obesity, unspecified; Z68.29 Body mass index [BMI] 29.0-29.9, adult; Z23 Encounter for immunization
CPT/HCPCS: 36415; 71020; 71275; 74020; 80048; 80053; 80061; 82150; 82272; 82550; 82553; 82607; 82728; 82746; 82803; 83540; 83550; 83690; 83735; 83880; 84439; 84443; 84466; 84481; 84484; 85025; 85045; 85379; 85610; 90686; 93005; 93010; 93306; 93970; 94640; 96372; 99285; J1650; J3490; J7030; J7620; Q0138; S0164

== ENCOUNTER 2016-05-30 13:55 | Observation (INO) | payer OTHER ==
[~2016-05-30 13:55] MED LIST: LIDOCAINE 2% INJ-PF (20 MG/ML) 10 ML AMPUL ONE
--- NOTE | 2016-05-30 14:06 | ER Document Report ---
ED Medical Screen (RME) - General Stated Complaint: ABSCESS ON BUTTOCK Mode of Arrival: Ambulatory Information source: Patient Notes: Patient with abscess to buttocks for the past 5 days. No fever. Patient denies any history of diabetes. I have greeted and performed a rapid initial assessment of this patient. A comprehensive ED assessment and evaluation of the patient, analysis of test results and completion of the medical decision making process will be conducted by additional ED providers. TRAVEL OUTSIDE OF THE [place] IN LAST 30 DAYS: No - Related Data Allergies/Adverse Reactions: No Known Allergies Allergy (Verified 05/05/16 07:21) Past Medical History - Past Medical History Cardiac Medical History: Reports: Hx Hypertension Pulmonary Medical History: Reports: Hx Sleep Apnea Renal/ Medical History: Denies: Hx Peritoneal Dialysis GI Medical History: Reports: Hx Colonoscopy Musculoskeltal Medical History: Reports Hx Arthritis Psychiatric Medical History: Reports: Hx Anxiety Past Surgical History: Reports: Hx Cardiac Catheterization - In [place] about 10 years ago, Hx Oral Surgery - teeth pulled, Hx Orthopedic Surgery - right hand 4th finger - Immunizations Hx Diphtheria, Pertussis, Tetanus Vaccination: Yes Physical Exam - Vital signs Vitals: Temp Pulse Resp BP Pulse Ox 98.6 F 90 20 133/83 H 96 05/30/16 14:00 05/30/16 14:00 05/30/16 14:05/30/16 14:00 05/30/16 14:00 - General General appearance: Appears well, Other In distress: None Course - Vital Signs Vital signs: Temp Pulse Resp BP Pulse Ox 98.6 F 90 20 133/83 H 96 05/30/16 14:00 05/30/16 14:00 05/30/16 14:05/30/16 14:00 05/30/16 14:00
--- NOTE | 2016-05-30 15:52 | ER Document Report ---
ED Skin Rash/Insect Bite/Abscs - General Chief Complaint: Boil Stated Complaint: ABSCESS ON BUTTOCK Mode of Arrival: Ambulatory Information source: Patient Notes: 60 y/o M presents to ED c/o tender area near rectum. Pt states has "boil" near rectum which he first noted approximately 5 days ago. Reports initially noted small raised area of tenderness which has progressively increased in size and worsened discomfort. Denies fever, drainage, or rectal bleeding. TRAVEL OUTSIDE OF THE [place] IN LAST 30 DAYS: No - HPI Patient complains to provider of: Tender/swollen area Onset/Duration: Gradual Quality of pain: Achy Severity: Mild Pain Level: 2 Skin Character: Abscess, Tenderness Skin Temperature: Warm Quality of rash: Painful Similar symptoms previously: No Recently seen / treated by doctor: No - Related Data Allergies/Adverse Reactions: No Known Allergies Allergy (Verified 05/30/16 14:05) Home Medications: Current Home Medications Apixaban [Eliquis 5 mg Tablet] 5 mg PO BID 05/30/16 [History] Atorvastatin Calcium [Lipitor 20 mg Tablet] 20 mg PO QHS 05/30/16 [History] Carvedilol [Coreg 6.25 mg Tablet] 6.25 mg PO BID 05/30/16 [History] Digoxin [Lanoxin 0.125 mg Tablet] 0.125 mg PO QAM 05/30/16 [History] Docusate Sodium [Colace 100 mg Capsule] 100 mg PO BID 05/30/16 [History] Torsemide [Demadex 20 mg Tablet] 10 mg PO BID 05/30/16 [History] Valsartan [Diovan 80 mg Tablet] 80 mg PO DAILY 05/30/16 [History] Past Medical History - General Information source: Patient - Social History Smoking Status: Never Smoker Chew tobacco use (# tins/day): No Frequency of alcohol use: None Drug Abuse: None Lives with: Family Family History: Arthritis, DM, Hyperlipidemia, Hypertension, Malignancy, Thyroid Disfunction. denies: Other - No history of bleeding diathesis or clotting disorder Patient has suicidal ideation: No Patient has homicidal ideation: No - Past Medical History Cardiac Medical History: Reports: Hx Hypertension Pulmonary Medical History: Reports: Hx Sleep Apnea Renal/ Medical History: Denies: Hx Peritoneal Dialysis GI Medical History: Reports: Hx Colonoscopy Musculoskeltal Medical History: Reports Hx Arthritis Psychiatric Medical History: Reports: Hx Anxiety Past Surgical History: Reports: Hx Cardiac Catheterization - In [place] about 10 years ago, Hx Oral Surgery - teeth pulled, Hx Orthopedic Surgery - right hand 4th finger - Immunizations Hx Diphtheria, Pertussis, Tetanus Vaccination: Yes Review of Systems - Review of Systems Constitutional: No symptoms reported EENT: No symptoms reported Cardiovascular: No symptoms reported Respiratory: No symptoms reported Gastrointestinal: No symptoms reported Genitourinary: No symptoms reported Male Genitourinary: No symptoms reported Musculoskeletal: No symptoms reported Skin: No symptoms reported Hematologic/Lymphatic: No symptoms reported Neurological/Psychological: No symptoms reported Physical Exam - Vital signs Vitals: Temp Pulse Resp BP Pulse Ox 98.6 F 90 20 133/83 H 96 05/30/16 14:00 05/30/16 14:00 05/30/16 14:00 05/30/16 14:00 05/30/16 14:00 - General General appearance: Appears well, Alert In distress: None - Respiratory Respiratory status: No respiratory distress Chest status: Nontender Breath sounds: Normal Chest palpation: Normal - Cardiovascular Rhythm: Regular Heart sounds: Normal auscultation Pulses: Normal: Radial Normal capillary refill: Yes - Abdominal Inspection: Normal Distension: No distension Bowel sounds: Normal Tenderness: Nontender Organomegaly: No organomegaly - Rectal Hemorrhoids: External Notes: Approximately 3 cm diameter area of tenderness and fluctuance adjacent to anus at 8 o'clock position. no drainage. Course - Re-evaluation Re-evalutation: 05/30/16 15:45 Pt hemodynamically stable, in no distress, afebrile. Pt presentation and findings discussed with surgeon wire rope fabrication supervisor Dr. Hernandez who agrees to evaluate patient in the ED. 05/30/16 16:45 Pt remains hemodynamically stable and in no distress. Dr. Hernandez at bedside evaluated patient and will take patient to OR and assume care. Recommends maintaining patient NPO and dose of IV Zosyn 3.375 gm. - Vital Signs Vital signs: Temp Pulse Resp BP Pulse Ox 98.6 F 88 20 133/83 H 96 05/30/16 16:16 05/30/16 16:16 05/30/16 16:16 05/30/16 16:16 05/30/16 16:16 Discharge - Discharge Clinical Impression: Perirectal abscess Condition: Stable Disposition: SAME DAY SURGERY Admitting Provider: Surgicalist - Dr. Hernandez
[2016-05-30] MEDS ORDERED: PIPERACILLIN/TAZOBACTAM 3.375 GM VIAL IV ONE (16:16)
--- NOTE | 2016-05-30 16:33 | HISTORY AND PHYSICAL E ---
History and Physical NAME: TIKI FRIEDMAN : 1955 AGE: 60Y ADMITTED: 05/30/2016 ROOM: HISTORY OF PRESENT ILLNESS: A 60-year-old male patient with history of pain in the perirectal area, presented to the emergency room with ongoing 3 to 4 days pain and came to the emergency room because of increasing pain. PAST MEDICAL PROBLEMS: 1. History of COPD. 2. History of heart failure. 3. He is on home oxygen therapy. 4. No diabetes, but hypertension. REVIEW OF SYSTEMS: As per examination. PHYSICAL EXAMINATION: GENERAL: He is awake, alert and oriented, does not seem to be in any kind of distress. He is a bit uncomfortable. HEAD AND NECK: No lymphadenopathy. No thyromegaly. RESPIRATORY: Both lungs clear to auscultation. CARDIOVASCULAR: Both heart sounds regular, no murmurs, rubs, or gallops. ABDOMEN: Soft, nontender abdomen. No masses palpable. EXTREMITIES: Warm and well perfused. RECTAL: On examination on the left perirectal area there is an about 3 to 5 cm site indurated area with *------* fluctuancy, indicative of abscess. IMPRESSION OVERALL: Perirectal abscess. No cellulitis. History of congestive cardiac failure. PLAN: Incision and drainage in the operating room, start him on Zosyn. Further wound care will be Sitz baths and all these instructions were given to the patient. I spent about 40 minutes for consultation and with exam of the patient, discuss with the patient options, counseling and coordinating further care more than 50% of the time. DICTATING PHYSICIAN: COLEMAN ROJO M.D. [id number] Y#: [id number] ID: [id number] JOB#: [id number] ACCT: [id number] cc:CHIQUIS GAY M.D. >
[2016-05-30] MEDS ORDERED: PROPOFOL INJ 200 MG/20 ML VIAL IV ONE (17:42)
[2016-05-30] MEDS ORDERED: MIDAZOLAM 2 MG/2 ML INJ ONE (17:42)
[2016-05-30] MEDS ORDERED: LIDOCAINE 1% INJ-PF (10 MG/ML) 30 ML SDV ONE (17:59)
[2016-05-30] MEDS ORDERED: PROMETHAZINE HCL INJ 25 MG/1 ML VIAL IV PRN ×2 (18:22)
[2016-05-30] MEDS ORDERED: FENTANYL CITRATE INJ/PF 100 MCG/2 ML AMPUL IV PRN ×3 (18:22)
[2016-05-30] MEDS ORDERED: MEPERIDINE HCL/PF INJ 25 MG/1 ML DISP.SYRIN IV PRN (18:22)
[2016-05-30] MEDS ORDERED: MORPHINE SULFATE 10 MG/ML INJ IV PRN (18:22)
[2016-05-30] MEDS ORDERED: DIPHENHYDRAMINE HCL 50 MG/ML VIAL IV PRN (18:22)
[2016-05-30] MEDS ORDERED: OXYCODONE-ACETAMINOPHEN 5-325 MG TABLET PO PRN ×2 (18:22)
--- NOTE | 2016-05-30 18:28 | OPERATIVE REPORT E ---
Operative Report NAME: TIKI FRIEDMAN : 1955 AGE: 60Y DATE OF SURGERY: 05/30/2016 ROOM: ED33 PREOPERATIVE DIAGNOSIS: Large perirectal abscess. POSTOPERATIVE DIAGNOSIS: Large perirectal abscess in the left lateral location. OPERATION: Incision and drainage of perirectal abscess. SURGEON: COLEMAN ROJO M.D. ANESTHESIA: Monitored Anesthesia Care with 1% lidocaine. ESTIMATED BLOOD LOSS: Less than 5 mL. TISSUE REMOVED OR ALTERED: Specimens: The incision was drained of pus, no specimen. HISTORY/INDICATION: As described. DESCRIPTION OF OPERATION: The patient was placed in the lithotomy position. Under Monitored Anesthesia Care, perianal area was cleaned and draped as a sterile field. Lidocaine 1% injected around the area which was about 3 cm In the center part of induration, elliptical incision was made and then about 10 mL of pus was drained and then abscess cavity copiously irrigated and suctioned out. Completely hemostatic, dressings were applied. The patient tolerated the procedure well without any problem and was taken to the recovery room in stable condition. DICTATING PHYSICIAN: COLEMAN ROJO M.D. [id number] PHY#: [id number] ID: [id number] JOB#: [id number] ACCT: [id number] cc:COLEMAN ROJO M.D. > MTDD
[2016-05-30] MEDS ORDERED: OXYCODONE-ACETAMINOPHEN 5-325 MG TABLET ONE (18:42)
[2016-05-30 20:53] VITALS: BP 133/67
== END 2016-05-30 21:10 | disposition home or self-care (01) ==
LOC: ER 13:55 → EH 17:15 → 5 19:10
PROC: 3E033GC Introduction of Other Therapeutic Substance into Peripheral Vein, Percutaneous Approach (ICD-10-PCS; 2016-05-30)
PROC: 0D9P7ZZ Drainage of Rectum, Via Natural or Artificial Opening (ICD-10-PCS; principal; 2016-05-30 18:00)
DX: K61.1 Rectal abscess (principal); J44.9 Chronic obstructive pulmonary disease, unspecified; Z99.81 Dependence on supplemental oxygen; I10 Essential (primary) hypertension; I25.10 Atherosclerotic heart disease of native coronary artery without angina pectoris
CPT/HCPCS: 99284; 96365; 46040; J2250; J3490 ×2; J2704; J2543; 902

== ENCOUNTER 2016-12-28 12:30 | Emergency (ER) | payer OTHER ==
[2016-12-28 12:35] VITALS: BP 154/84
--- NOTE | 2016-12-28 13:18 | ER Document Report ---
ED Skin Rash/Insect Bite/Abscs - General Chief Complaint: Boil Stated Complaint: SKIN PROBLEM Time Seen by Provider: 12/28/16 13:03 Notes: 61 yo male with hx/o lyn-rectal abscess presents to ED today c/o bloody drainage from left buttock. no pain. no fever. no bowel/bladder dysfunction TRAVEL OUTSIDE OF THE [place] IN LAST 30 DAYS: No - HPI Patient complains to provider of: Tender/swollen area Onset: This morning Onset/Duration: Sudden Quality of pain: No pain Skin Character: Abscess Exacerbated by: Denies Relieved by: Denies Similar symptoms previously: Yes Recently seen / treated by doctor: No - Related Data Allergies/Adverse Reactions: No Known Allergies Allergy (Verified 12/28/16 12:32) Past Medical History - General Information source: Patient - Social History Smoking Status: Never Smoker Chew tobacco use (# tins/day): No Frequency of alcohol use: None Drug Abuse: None Lives with: Family Family History: Arthritis, DM, Hyperlipidemia, Hypertension, Malignancy, Thyroid Disfunction. denies: Other - No history of bleeding diathesis or clotting disorder Patient has suicidal ideation: No Patient has homicidal ideation: No - Past Medical History Cardiac Medical History: Reports: Hx Hypertension Pulmonary Medical History: Reports: Hx Sleep Apnea Renal/ Medical History: Denies: Hx Peritoneal Dialysis GI Medical History: Reports: Hx Colonoscopy Musculoskeltal Medical History: Reports Hx Arthritis Psychiatric Medical History: Reports: Hx Anxiety Past Surgical History: Reports: Hx Cardiac Catheterization - In [place] about 10 years ago, Hx Oral Surgery - teeth pulled, Hx Orthopedic Surgery - right hand 4th finger - Immunizations Hx Diphtheria, Pertussis, Tetanus Vaccination: Yes Review of Systems - Review of Systems Constitutional: No symptoms reported EENT: No symptoms reported Cardiovascular: No symptoms reported Respiratory: No symptoms reported Gastrointestinal: No symptoms reported Genitourinary: No symptoms reported Male Genitourinary: No symptoms reported Musculoskeletal: No symptoms reported Skin: See HPI Hematologic/Lymphatic: No symptoms reported Neurological/Psychological: No symptoms reported Physical Exam - Vital signs Vitals: Temp Pulse Resp BP Pulse Ox 98.3 F 101 H 20 154/84 H 97 12/28/16 12:33 12/28/16 12:33 12/28/16 12:33 12/28/16 12:33 12/28/16 12:33 Interpretation: Normal - General General appearance: Appears well, Alert - HEENT Head: Normocephalic, Atraumatic Eyes: Normal Pupils: PERRL - Respiratory Respiratory status: No respiratory distress Chest status: Nontender Breath sounds: Normal Chest palpation: Normal - Cardiovascular Rhythm: Regular Heart sounds: Normal auscultation Murmur: No - Abdominal Inspection: Normal Distension: No distension Bowel sounds: Normal Tenderness: Nontender Organomegaly: No organomegaly - Back Back: Normal, Nontender - Extremities General upper extremity: Normal inspection, Nontender, Normal color, Normal ROM , Normal temperature General lower extremity: Normal inspection, Nontender, Normal color, Normal ROM , Normal temperature, Normal weight bearing. No: Lebron's sign - Neurological Neuro grossly intact: Yes Cognition: Normal Orientation: AAOx4 Landing Coma Scale Eye Opening: Spontaneous Landing Coma Scale Verbal: Oriented Landing Coma Scale Motor: Obeys Commands Mame Coma Scale Total: 15 Speech: Normal Motor strength normal: LUE, RUE, LLE, RLE Sensory: Normal - Psychological Associated symptoms: Normal affect, Normal mood - Skin Skin Temperature: Warm Skin Moisture: Dry Skin Color: Normal Skin irregularity: Abscess - 2cm slight induration to left perirectal area. no fluctuance but small opening to center of induration with scant bloody drainage. area is nontender Course - Re-evaluation Re-evalutation: 12/28/16 13:15 symptoms consistent with early lyn rectal abscess. nothing to I&D at this point. will start abx and have pt f/u with pcm/surgery for any any worsening. pt is afebrile, nontoxic, stable for discharge - Vital Signs Vital signs: Temp Pulse Resp BP Pulse Ox 98.3 F 101 H 20 154/84 H 97 12/28/16 12:33 12/28/16 12:33 12/28/16 12:33 12/28/16 12:33 12/28/16 12:33 Discharge - Discharge Clinical Impression: Perirectal abscess Disposition: HOME, SELF-CARE Instructions: Abscess ([facility]), Antibiotic Therapy ([facility]) Additional Instructions: You have an early lyn-rectal abscess. It is too early to incise the abscess Take oral antibiotic as prescribed Warm bath or warm compresses to area Follow up with primary care if symptoms persist return to ER for any worsening Prescriptions: Ciprofloxacin HCl [Cipro 500 mg Tablet] 500 mg PO BID #20 tablet Metronidazole [Flagyl 500 mg Tablet] 500 mg PO Q6H #28 tablet Forms: Elevated Blood Pressure
== END 2016-12-28 13:30 | disposition home or self-care (01) ==
LOC: ER 12:30
DX: K61.1 Rectal abscess (principal); I10 Essential (primary) hypertension
CPT/HCPCS: 99283

== ENCOUNTER 2017-07-07 08:51 | Observation (INO) | payer OTHER ==
--- NOTE | 2017-07-07 09:08 | ER Document Report ---
HPI - HPI Pain Level: 2 Notes: Patient is a 61-year-old male with a history of hypertension and pacemaker placement who presents to the ED complaining of an abscess between his buttocks primarily on the left side near his anus 1 month. Patient states that he started noticing drainage over the last day which brought him to the emergency department. Patient states that in the past he has been placed on oral antibiotics without incision and drainage. Patient states that the pain does not radiate otherwise. He denies any drug allergies. Patient states that he is eating and drinking without difficulties. He is urinating normally and having normal bowel movements. Denies any headache, fever, neck pain, URI, sore throat, chest pain, palpitations, syncope, cough, shortness of breath, wheeze, dyspnea, abdominal pain, nausea/vomiting/diarrhea, urinary retention, dysuria, hematuria, loss of control of bowel or bladder, numbness/tingling, saddle anesthesia, muscle paralysis/weakness, or rash. - ROS Systems Reviewed and Negative: Yes All other systems reviewed and negative - REPRODUCTIVE Reproductive: DENIES: : Past Medical History - Social History Smoking Status: Never Smoker Family History: Arthritis, DM, Hyperlipidemia, Hypertension, Malignancy, Thyroid Disfunction. denies: Other - No history of bleeding diathesis or clotting disorder - Past Medical History Cardiac Medical History: Reports: Hx Hypertension Pulmonary Medical History: Reports: Hx Sleep Apnea Renal/ Medical History: Denies: Hx Peritoneal Dialysis GI Medical History: Reports: Hx Colonoscopy Musculoskeltal Medical History: Reports Hx Arthritis Psychiatric Medical History: Reports: Hx Anxiety Past Surgical History: Reports: Hx Cardiac Catheterization - In [place] about 10 years ago, Hx Oral Surgery - teeth pulled, Hx Orthopedic Surgery - right hand 4th finger - Immunizations Hx Diphtheria, Pertussis, Tetanus Vaccination: Yes Vertical Provider Document - CONSTITUTIONAL Agree With Documented VS: Yes Notes: PHYSICAL EXAMINATION: GENERAL: Well-appearing, well-nourished and in no acute distress. LUNGS: Breath sounds clear to auscultation bilaterally and equal. No wheezes rales or rhonchi. HEART: Regular rate and rhythm without murmurs, rubs, gallops. ABDOMEN: Soft, nontender, nondistended abdomen. No guarding, no rebound. No masses appreciated. Normal bowel sounds present. No CVA tenderness bilaterally. Rectal: perirectal abscess, + tenderness and induration leading to the anus on the left side. Extremities: No cyanosis, clubbing, or edema b/l. Peripheral pulses 2+. Capillary refill less than 3 seconds. NEUROLOGICAL: Normal speech, normal gait. Normal sensory, motor exams PSYCH: Normal mood, normal affect. SKIN: see above. Warm, Dry, normal turgor, no rashes or lesions noted. - INFECTION CONTROL TRAVEL OUTSIDE OF THE [place] IN LAST 30 DAYS: No Course - Re-evaluation Re-evalutation: 07/07/17 09:07 Vitals are acceptable. Pt appears to have a lyn-rectal abscess. Spoke with General Surgeon, Dr. Molina, who will evaluate the patient. 07/07/17 09:32 Dr. Molina acceptable patient for O.R. procedure. Pt is in agreement with plan. Pre-op work up ordered, IV zosyn started. NPO. - Vital Signs Vital signs: Temp Pulse Resp BP Pulse Ox 99.0 F 84 14 130/75 H 97 07/07/17 08:58 07/07/17 08:58 07/07/17 08:58 07/07/17 08:58 07/07/17 08:58 Discharge - Discharge Clinical Impression: Perirectal abscess Condition: Stable Disposition: ADMITTED INPATIENT Admitting Provider: Surgicalist - Dr. Molina Unit Admitted: Surgical Floor
[2017-07-07] MEDS ORDERED: NORMAL SALINE 1000 ML 1,000 ML IV ONE (09:30)
[2017-07-07] MEDS ORDERED: PIPERACILLIN/TAZOBACTAM 3.375 GM VIAL IV ONE (09:30)
[2017-07-07 10:24] LABS: APPEARANCE,URINE CLEAR; BILIRUBIN,URINE NEGATIVE (NEGATIVE); COLOR,URINE STRAW; GLUCOSE, URINE >=500 mg/dL (NEGATIVE); KETONES,URINE NEGATIVE (NEGATIVE); LEUKOCYTE ESTERASE,URINE NEGATIVE (NEGATIVE); NITRITE,URINE NEGATIVE (NEGATIVE); PROTEIN,URINE NEGATIVE (NEGATIVE); URINE SPECIFIC GRAVITY 1.013; UROBILINOGEN,URINE NEGATIVE mg/dL (<2.0)
[2017-07-07 10:27] LABS: HEMATOCRIT 47.2 % (37.9-51.0); HEMOGLOBIN 14.9 g/dL (13.5-17.0); MEAN CORPUSCULAR HEMOGLOBIN 20.7 pg (27.0-33.4); MEAN CORPUSCULAR HGB CONC 31.5 g/dL (32.0-36.0); MEAN CORPUSCULAR VOLUME 66 fl (80-97); PLATELET COUNT 175 10^3/uL (150-450); RED CELL DISTRIBUTION WIDTH 16.7 % (11.5-14.0); WHITE BLOOD COUNT 7.5 10^3/uL (4.0-10.5)
--- NOTE | 2017-07-07 10:39 | RADIOLOGY REPORT (SQ) ---
EXAM DESCRIPTION: CHEST 2 VIEWS COMPLETED DATE/TIME: 07/07/2017 10:16 am REASON FOR STUDY: pre-op COMPARISON: Two-view chest 05/05/2016 EXAM PARAMETERS: NUMBER OF VIEWS: two views TECHNIQUE: Digital Frontal and Lateral radiographic views of the chest acquired. RADIATION DOSE: NA LIMITATIONS: none FINDINGS: LUNGS AND PLEURA: No opacities, masses or pneumothorax. No pleural effusion. MEDIASTINUM AND HILAR STRUCTURES: No masses or contour abnormalities. HEART AND VASCULAR STRUCTURES: Heart normal size. No evidence for failure. BONES: No acute findings. HARDWARE: Left-sided dual lead pacemaker OTHER: No other significant finding. IMPRESSION: NO ACUTE RADIOGRAPHIC FINDING IN THE CHEST. TECHNICAL DOCUMENTATION: JOB ID: [id number] All Rights Reserved Reading location - IP/workstation name: [email or web address]
[2017-07-07 10:45] LABS: ABSOLUTE LYMPHOCYTES# (MANUAL) 1.9 10^3/uL (0.5-4.7); ABSOLUTE MONOCYTES # (MANUAL) 0.5 10^3/uL (0.1-1.4); ABSOLUTE NEUTROPHILS# (MANUAL) 4.7 10^3/uL (1.7-8.2); ALBUMIN 4.7 g/dL (3.5-5.0); ANION GAP 12 (5-19); ANISOCYTOSIS 1+; BASOPHILS % (MANUAL) 0 % (0-2); BLOOD UREA NITROGEN 20 mg/dL (7-20); CARBON DIOXIDE 30 mmol/L (22-30); CHLORIDE 95 mmol/L (98-107); EOSINOPHILS % (MANUAL) 6 % (0-6); HYPOCHROMASIA SLIGHT; LYMPHOCYTES % (MANUAL) 22 % (13-45); MONOCYTES % (MANUAL) 6 % (3-13); PLATELET COMMENT ADEQUATE; POLYCHROMASIA SLIGHT; POTASSIUM 4.6 mmol/L (3.6-5.0); SEGMENTED NEUTROPHILS % (MAN) 63 % (42-78); TOTAL CELLS COUNTED 100; TOTAL PROTEIN 7.5 g/dL (6.3-8.2); TOXIC GRANULATION SLIGHT; TOXIC VACUOLATION PRESENT
[2017-07-07 10:47] LABS: ALANINE AMINOTRANSFERASE 30 U/L (21-72); ALKALINE PHOSPHATASE 128 U/L (38-126); ASPARTATE AMINO TRANSFERASE 19 U/L (17-59); BILIRUBIN,DIRECT 0.2 mg/dL (0.0-0.4); BILIRUBIN,TOTAL 0.6 mg/dL (0.2-1.3); CALCIUM 9.5 mg/dL (8.4-10.2)
--- NOTE | 2017-07-07 10:47 | EKG REPORT ---
SEVERITY:- ABNORMAL ECG - SINUS RHYTHM LVH WITH SECONDARY REPOLARIZATION ABNORMALITY : Confirmed by: Zohreh Robles 07-Jul-2017 10:46:42
[2017-07-07 10:52] LABS: GLUCOSE 396 mg/dL (75-110)
[2017-07-07 11:03] LABS: INTERNATIONAL RATION (INR) 1.24; PROTHROMBIN TIME 16.5 SEC (11.4-15.4)
[2017-07-07 11:04] LABS: PARTIAL THROMBOPLASTIN TIME 33.2 SEC (23.5-35.8)
[2017-07-07] MEDS ORDERED: LIDOCAINE 0.5% INJ-PF (5 MG/ML) 50 ML SDV ONE (11:30)
[2017-07-07] MEDS ORDERED: PROPOFOL INJ 200 MG/20 ML VIAL IV ONE (11:35)
[2017-07-07] MEDS ORDERED: FENTANYL CITRATE INJ/PF 100 MCG/2 ML AMPUL ONE (11:35)
[2017-07-07] MEDS ORDERED: MIDAZOLAM 2 MG/2 ML INJ ONE (11:35)
[2017-07-07] MEDS ORDERED: MEPERIDINE HCL/PF INJ 25 MG/1 ML DISP.SYRIN IV PRN (12:02)
[2017-07-07] MEDS ORDERED: DIPHENHYDRAMINE HCL 50 MG/ML VIAL IV PRN (12:02)
[2017-07-07] MEDS ORDERED: PROMETHAZINE HCL INJ 25 MG/1 ML VIAL IV PRN ×2 (12:02)
[2017-07-07] MEDS ORDERED: FENTANYL CITRATE INJ/PF 100 MCG/2 ML AMPUL IV PRN ×3 (12:02)
[2017-07-07] MEDS: FENTANYL CITRATE INJ/PF 100 MCG/2 ML AMPUL ONE ×2 (13:05→13:10)
[2017-07-07] MEDS ORDERED: MORPHINE SULFATE 10 MG/ML INJ INJ PRN (13:47)
[2017-07-07] MEDS ORDERED: SODIUM CHLORIDE IRRIG SOLUTION 1,000 ML IR PRN (13:50)
[2017-07-07] MEDS: OXYCODONE-ACETAMINOPHEN 5-325 MG TABLET PO PRN ×3 (14:46→23:50)
--- NOTE | 2017-07-07 15:19 | OPERATIVE REPORT E ---
Operative Report NAME: TIKI FRIEDMAN : 1955 AGE: 61Y DATE OF SURGERY: 07/07/2017 ROOM: 206 PREOPERATIVE DIAGNOSIS: LEFT PERIANAL ABSCESS. POSTOPERATIVE DIAGNOSIS: RECTAL FISTULA WITH ABSCESS. OPERATION: Fistulectomy. SURGEON: JOSELYN BUSTILLO M.D. ANESTHESIA: General. INDICATIONS: This is a 61-year-old male who noted pain to the left perianal area. This was initially noted about a year ago, and patient went to the ED and was just given antibiotics. However, in the past few days, patient is complaining of more pains and some discharge around the left perirectal area. There is evidence of abscess, as well as possible fistula. PROCEDURE: Patient was placed in lithotomy position and the perianal area prepped and draped in the usual sterile fashion. The abscess cavity appeared to be in the mid part and this was then just punctured with a hemostat, and abscess noted. Cultures were obtained. The abscess cavity was then probed. However, no evidence of intraabdominal opening noted. However, on rectal exam and exposure of the anterior aspect of the rectal area, there appeared to be a small opening. This was then probed and this went to the abscess cavity. This area was noted to be quite firm. It was then incised, practically doing a fistulectomy. The bleeding was partially controlled with the use of bipolar cautery, since the patient has a pacemaker. Next, a large Surgicel was placed on the operative site and held on for pressure, but there was still a little leaking of blood. This was then controlled with [id number] sutures on the skin and part of the mucosa using 2-0 chromic catgut. This kind of stopped the oozing. Next, a 5 x 9 pad was then used to put pressure on the rectal area for better hemostasis. Sterile dressing was placed over the operative site. Needle, instrument and sponge counts were all correct. Estimated blood loss about 20 mL. DICTATING PHYSICIAN: JOSELYN BUSTILLO M.D. [id number] PHY#: [id number] ID: [id number] JOB#: [id number] ACCT: [id number] cc:JOSELYN BUSTILLO M.D. >
[2017-07-07] MEDS ORDERED: PIPERACILLIN SODIUM/TAZOBACTAM 3.375 GM in NORMAL SALINE 100 ML IV SCH (18:00)
[2017-07-07 18:15] LABS: ABSOLUTE BASOPHILS # (AUTO) 0.1 10^3/uL (0.0-0.2); ABSOLUTE EOSINOPHILS # (AUTO) 0.1 10^3/uL (0.0-0.6); ABSOLUTE LYMPHOCYTES (AUTO) 1.5 10^3/uL (0.5-4.7); ABSOLUTE MONOCYTES (AUTO) 0.5 10^3/uL (0.1-1.4); ABSOLUTE NEUT (AUTO) 7.4 10^3/uL (1.7-8.2); BASOPHILS % (AUTO) 1.1 % (0-2); HEMOGLOBIN 13.2 g/dL (13.5-17.0); LYMPHOCYTES % (AUTO) 15.9 % (13-45); MEAN CORPUSCULAR HEMOGLOBIN 20.5 pg (27.0-33.4); MEAN CORPUSCULAR HGB CONC 31.3 g/dL (32.0-36.0); MEAN CORPUSCULAR VOLUME 66 fl (80-97); MONOCYTES % (AUTO) 5.2 % (3-13); PLATELET COUNT 157 10^3/uL (150-450); RED CELL DISTRIBUTION WIDTH 16.5 % (11.5-14.0); SEGMENTED NEUTROPHILS % (AUTO) 76.8 % (42-78); TOTAL CELLS COUNTED % (AUTO) 100 %; WHITE BLOOD COUNT 9.7 10^3/uL (4.0-10.5)
[2017-07-07] MEDS: PIPERACILLIN SODIUM/TAZOBACTAM 3.375 GM in NORMAL SALINE 100 ML IV SCH ×2 (18:21→23:05)
[2017-07-07 18:23] LABS: INTERNATIONAL RATION (INR) 1.11; PROTHROMBIN TIME 15.1 SEC (11.4-15.4)
[2017-07-07] MEDS ORDERED: NORMAL SALINE 1000 ML 1,000 ML IV PRN (18:55)
[2017-07-08] MEDS: PIPERACILLIN SODIUM/TAZOBACTAM 3.375 GM in NORMAL SALINE 100 ML IV SCH ×2 (05:03→11:06)
[2017-07-08] MEDS: OXYCODONE-ACETAMINOPHEN 5-325 MG TABLET PO PRN (06:31)
[2017-07-08 17:11] VITALS: BP 137/67
--- NOTE | 2017-07-14 20:24 | DISCHARGE SUMMARY E ---
Discharge Summary NAME: TIKI FRIEDMAN : 1955 AGE: 61Y ADMITTED: 07/07/2017 DISCHARGED: 07/08/2017 FINAL DIAGNOSIS: Anal fistula with abscess. HOSPITAL COURSE: This is a 61-year-old male who has been having pain in the perianal area for the past 4 days. He claims he had the same problems about a year ago and was just given antibiotics and drained percutaneously in the ER. This time, however, the patient had some tenderness and redness and swelling along the perianal area, along the left side. The patient then brought to the OR where a fistulectomy and I and D of perirectal abscess was performed under general anesthesia. Postoperatively the patient did well and discharged improved the next day 07/08/17. DISCHARGE INSTRUCTION: The patient advised to continue sitz baths at home and to follow up in the surgical clinic in about a week. The patient given p.o. antibiotics, Cipro and Flagyl, for the next 5 days. A prescription for Percocet was also given. The patient was then discharged on 07/08/17. DICTATING PHYSICIAN: JOSELYN BUSTILLO M.D. [id number] PHY#: [id number] ID: [id number] JOB#: [id number] ACCT: [id number] cc:JOSELYN BUSTILLO M.D. >
== END 2017-07-08 17:35 | disposition home or self-care (01) ==
LOC: ER 08:51 → EH 09:37 → INTOOBSV 09:37 → 2N 13:45
PROVIDERS: ATTEND Surgery
PROC: 0DBP3ZZ Excision of Rectum, Percutaneous Approach (ICD-10-PCS; principal; 2017-07-07 11:30)
DX: K61.1 Rectal abscess (principal); I10 Essential (primary) hypertension; Z95.0 Presence of cardiac pacemaker
CPT/HCPCS: 93005; 99284; 36415; 87070; 87205; 85025; 85610; 85730; 87075; 87077; 80053; 81001; 87186; 88305 ×2; 71046; 93010; 45999; G0378 ×2; J2250; J3010; J3490; J7030; J2704; J2543 ×2; 902

== ENCOUNTER 2017-07-11 12:02 | Emergency (ER) | payer OTHER ==
[2017-07-11 12:12] VITALS: BP 108/78
--- NOTE | 2017-07-11 13:09 | ER Document Report ---
ED Skin Rash/Insect Bite/Abscs - General Chief Complaint: Abscess Stated Complaint: ABSCESS/BUTTOCKS Time Seen by Provider: 07/11/17 12:35 Mode of Arrival: Ambulatory Information source: Patient Notes: 61-year-old male presents to ED for "abscess to the buttocks "he states that 3 days ago he had surgery on this and the pain has gotten larger he has had a " big knot hanging out of his bottom that is concerning him. He states he has had too much blood over the last couple days ". Patient is walking like a cowboy due to the pain in his rectum. TRAVEL OUTSIDE OF THE [place] IN LAST 30 DAYS: No - HPI Patient complains to provider of: Other - I&D of abscess with fistula 3 days ago Onset: Other - Last week Onset/Duration: Sudden Quality of pain: Burning, Sharp Severity: Moderate Pain Level: 2 Skin Character: Other - Recheck I&D of abscess with fistula that was surgically I&D 3 days ago Identify cause: Yes Exacerbated by: Sitting, Standing, Movement, Walking Relieved by: Denies Similar symptoms previously: Yes Recently seen / treated by doctor: Yes - Related Data Allergies/Adverse Reactions: No Known Allergies Allergy (Verified 07/07/17 08:53) Past Medical History - General Information source: Patient - Social History Smoking Status: Never Smoker Cigarette use (# per day): No Chew tobacco use (# tins/day): No Smoking Education Provided: No Frequency of alcohol use: Occasional Drug Abuse: None Family History: Arthritis, DM, Hyperlipidemia, Hypertension, Malignancy, Thyroid Disfunction. denies: CAD, COPD, CVA, Other - No history of bleeding diathesis or clotting disorder Patient has suicidal ideation: No Patient has homicidal ideation: No - Past Medical History Cardiac Medical History: Reports: Hx Hypertension Pulmonary Medical History: Reports: Hx Sleep Apnea EENT Medical History: Reports: None Neurological Medical History: Reports: None Endocrine Medical History: Reports: None Renal/ Medical History: Reports: None Malignancy Medical History: Reports None GI Medical History: Reports: Hx Colonoscopy Musculoskeltal Medical History: Reports Hx Arthritis, Reports Hx Musculoskeletal Trauma Skin Medical History: Reports None Psychiatric Medical History: Reports: Hx Anxiety Traumatic Medical History: Reports: None Infectious Medical History: Reports: None Past Surgical History: Reports: Hx Cardiac Catheterization - In [place] about 10 years ago, Hx Oral Surgery - teeth pulled, Hx Orthopedic Surgery - right hand 4th finger, Hx Pacemaker - Immunizations Immunizations up to date: Yes Hx Diphtheria, Pertussis, Tetanus Vaccination: Yes Review of Systems - Review of Systems Constitutional: No symptoms reported EENT: No symptoms reported Cardiovascular: No symptoms reported Respiratory: No symptoms reported Gastrointestinal: Other - Rectal abscess with fistula that was I&D 3 days ago and surgery by Dr. Molina Genitourinary: No symptoms reported Male Genitourinary: No symptoms reported Musculoskeletal: No symptoms reported Skin: Other - Surgical I&D of rectal abscess with packing. Patient states he feels like he has a big ball in the area and is had too much bleeding Hematologic/Lymphatic: No symptoms reported Neurological/Psychological: No symptoms reported -: Yes All other systems reviewed and negative Physical Exam - Vital signs Vitals: Temp Pulse Resp BP Pulse Ox 97.9 F 104 H 14 108/78 95 07/11/17 12:10 07/11/17 12:10 07/11/17 12:10 07/11/17 12:10 07/11/17 12:10 Interpretation: Normal - General General appearance: Appears well, Alert - HEENT Head: Normocephalic, Atraumatic Eyes: Normal Pupils: PERRL - Respiratory Respiratory status: No respiratory distress Chest status: Nontender Breath sounds: Normal Chest palpation: Normal - Cardiovascular Rhythm: Regular Heart sounds: Normal auscultation Murmur: No - Abdominal Inspection: Normal Distension: No distension Bowel sounds: Normal Tenderness: Nontender Organomegaly: No organomegaly - Rectal Tenderness: Yes - Large area of packing and blood noted to I&D site. - Back Back: Normal, Nontender - Extremities General upper extremity: Normal inspection, Nontender, Normal color, Normal ROM , Normal temperature General lower extremity: Normal inspection, Nontender, Normal color, Normal ROM , Normal temperature, Normal weight bearing. No: Lebron's sign - Neurological Neuro grossly intact: Yes Cognition: Normal Orientation: AAOx4 Mame Coma Scale Eye Opening: Spontaneous Mame Coma Scale Verbal: Oriented Mame Coma Scale Motor: Obeys Commands Mame Coma Scale Total: 15 Speech: Normal Motor strength normal: LUE, RUE, LLE, RLE Sensory: Normal - Psychological Associated symptoms: Normal affect, Normal mood - Skin Skin Temperature: Warm Skin Moisture: Dry Skin Color: Normal Skin irregularity: other - Large opening from an I&D done [address] Molina. It appears to have packing coming out of the incision area. There is blood on his underwear and his packing Course - Re-evaluation Re-evalutation: 07/11/17 13:[address] Molina who came to the emergency room to examine the patient. He states he will remove the packing after he removed his sutures. See Dr. Molina's note. After he completed his procedure he requested I write the patient Percocet 08/06/2024 6 tablets one every 6 hours as needed to last him until his follow-up visit on Thursday. Patient to follow-up with Dr. Molina on Thursday. - Vital Signs Vital signs: Temp Pulse Resp BP Pulse Ox 97.9 F 104 H 14 108/78 95 07/11/17 12:10 07/11/17 12:10 07/11/17 12:10 07/11/17 12:10 07/11/17 12:10 Discharge - Discharge Clinical Impression: bleeding from surgical I&D rectal Condition: Stable Disposition: HOME, SELF-CARE Additional Instructions: He was seen today for pain and bleeding from the surgical site where the doctor Tracy opened a abscess to your rectal area. You did have Surgicel hanging out from the surgical site. Dr. Molina did come to the bedside and repair of the site. He has recommended he be sent home with 6 Percocet prescription one every 6 hours for your pain. He states that she will need to follow-up with him on Thursday as previously scheduled. Please follow all instructions that he has given you for your surgery. Please be sure to get to his office on Thursday for your follow-up appointment. Oral Narcotic Medication You have been given a prescription for pain control. This medication is a narcotic. It's best taken with food, as nausea can result if taken on an empty stomach. Don't operate machinery or drive within six hours of taking this medication. Do not combine this medicine with alcohol, or with any medication which can cause sedation (such as cold tablets or sleeping pills) unless you get permission from the physician. Narcotics tend to cause constipation. If possible, drink plenty of fluids and eat a diet high in fiber and fruits. FOLLOW-UP CARE: If you have been referred to a physician for follow-up care, call the physician s office for an appointment as you were instructed or within the next two days. If you experience worsening or a significant change in your symptoms, notify the physician immediately or return to the Emergency Department at any time for re-evaluation. Prescriptions: Oxycodone HCl/Acetaminophen [Percocet 5-325 mg Tablet] 1 tab PO Q6HP PRN #6 tablet PRN Reason: Referrals: KALEE MOSES PA-C [Primary Care Provider] - Follow up as needed [facility] [Provider Group] - 07/14/17
[2017-07-11] MEDS ORDERED: LIDOCAINE 1% INJ-PF (10 MG/ML) 30 ML SDV INJ ONE (13:13)
--- NOTE | 2017-07-11 15:19 | OPERATIVE REPORT E ---
Operative Report NAME: TIKI FRIEDMAN : 1955 AGE: 61Y DATE OF SURGERY: 07/11/2017 ROOM: PREOPERATIVE DIAGNOSIS: BLEEDING FROM POST FISTULECTOMY INCISION SITE. POSTOPERATIVE DIAGNOSIS: BLEEDING FROM POST FISTULECTOMY INCISION SITE. OPERATION: Suture ligature of bleeders from fistulectomy site with partial packing with Surgifoam. SURGEON: JOSELYN BUSTILLO M.D. ANESTHESIA: Local. INDICATION: This is a 61-year-old male with a history of pacemaker and had a fistulectomy done on 07/06/2017. The fistulectomy site was packed with Surgifoam dressing which were kept in place with chromic catgut. The patient advised to continue Sitz baths. However today, the patient noted some bleeding from the operative site and went to the ED. He was noted to have some oozing from the lateral aspect of the fistulectomy site still with some Surgicel that is ready to come out. DESCRIPTION OF PROCEDURE: The patient was placed in a left lateral decubitus position bedside in the ER. The area was then prepped and draped in the usual sterile fashion. Local anesthesia with 1% Xylocaine was then injected around the fistulectomy site using about 20 mL. Following this, all of the Surgicel was then removed. This exposed a couple of bleeders on each side of the fistulectomy site. This was then controlled with a [id number]-fd-fkonc suture using 3-0 chromic catgut. The sutures were left long and a piece of Surgifoam about 1.5 cm wide x about 6 cm long was then folded and placed underneath the sutures in the cavity and tied over the Surgifoam. Prior to placement of Surgifoam no active bleeding noted. The rest of the chromic catgut sutures, there was at least one close to the mucosa that was removed. No evidence of infection noted. No evidence of significant induration noted. A sterile gauze and ABD pad was then placed over the wound, and the patient wore a transparent brief to keep the dressings in place. The plan is for the patient to go to the surgical clinic on Thursday, 07/14, for followup. In the meantime, a prescription for Percocet will be given to the patient to take one every six hours when the anesthesia wears off, hopefully, by later today or tomorrow for a couple of days. The patient tolerated the procedure well. DICTATING PHYSICIAN: JOSELYN BUSTILLO M.D. [id number] PHY#: [id number] ID: [id number] JOB#: [id number] ACCT: [id number] cc:JOSELYN BUSTILLO M.D. >
== END 2017-07-11 14:10 | disposition home or self-care (01) ==
LOC: ER 12:02
DX: K91.840 Postprocedural hemorrhage of a digestive system organ or structure following a digestive system procedure (principal); L02.31 Cutaneous abscess of buttock; I10 Essential (primary) hypertension; Z98.890 Other specified postprocedural states
CPT/HCPCS: 99282; J3490

== ENCOUNTER 2017-09-10 04:34 | Observation (INO) | payer OTHER ==
--- NOTE | 2017-09-10 06:14 | ER Document Report ---
ED Dizziness/Weakness - General Chief Complaint: General Weakness Stated Complaint: GENERAL WEAKNESS Time Seen by Provider: 09/10/17 06:09 Notes: 61-year-old male to the emergency department chief complaint of not feeling well. States that he has not felt well for several days. Having a hard time eating and drinking. States that he feels like things are getting stuck in his throat. Has been only able to drink juice and water. Craving liquids. Increased thirst. Increased urination. Taking all of his medications as prescribed. Does not know who his primary care doctor is. Followed by Dr. Robles with cardiology. Uncertain if he has had any recent changes in medications. Denies any abdominal pain. Just feels weak and tired. TRAVEL OUTSIDE OF THE [place] IN LAST 30 DAYS: No - HPI Patient complains to provider of: Dizziness, Weakness Onset: Last week Onset/Duration: Gradual, Worse Severity: Moderate Associated symptoms: Lightheaded, Palpitations, Weak all over Exacerbated by: Change in position - Related Data Allergies/Adverse Reactions: No Known Allergies Allergy (Verified 07/07/17 08:53) Past Medical History - Social History Smoking Status: Unknown if Ever Smoked Chew tobacco use (# tins/day): No Frequency of alcohol use: None Drug Abuse: None Family History: Arthritis, DM, Hyperlipidemia, Hypertension, Malignancy, Thyroid Disfunction. denies: CAD, COPD, CVA, Other - No history of bleeding diathesis or clotting disorder Patient has suicidal ideation: No Patient has homicidal ideation: No - Past Medical History Cardiac Medical History: Reports: Hx Hypertension Pulmonary Medical History: Reports: Hx Sleep Apnea Renal/ Medical History: Denies: Hx Peritoneal Dialysis GI Medical History: Reports: Hx Colonoscopy Musculoskeltal Medical History: Reports Hx Arthritis, Reports Hx Musculoskeletal Trauma Psychiatric Medical History: Reports: Hx Anxiety Denies: Hx Depression Past Surgical History: Reports: Hx Cardiac Catheterization - In [place] about 10 years ago, Hx Oral Surgery - teeth pulled, Hx Orthopedic Surgery - right hand 4th finger, Hx Pacemaker - Immunizations Immunizations up to date: Yes Hx Diphtheria, Pertussis, Tetanus Vaccination: Yes Review of Systems - Review of Systems Constitutional: Malaise, Weakness. denies: Fever EENT: Difficulty swallowing. denies: Eye pain, Ear discharge, Throat swelling, Mouth pain, Mouth swelling Cardiovascular: Palpitations. denies: Chest pain, Heart racing Respiratory: denies: Cough, Hurts to breathe, Short of breath, Wheezing Gastrointestinal: denies: Abdominal pain, Diarrhea, Nausea, Vomiting Genitourinary: denies: Burning, Dysuria, Discharge Musculoskeletal: denies: Back pain, Joint pain, Joint swelling Skin: Dryness. denies: Lesions, Lumps, Rash Hematologic/Lymphatic: denies: Anemia, Blood clots, Easy bleeding, Easy bruising Neurological/Psychological: Weakness. denies: Confusion, Dementia, Numbness Physical Exam - Vital signs Vitals: Temp Pulse Resp BP Pulse Ox 98.4 F 110 H 18 103/65 97 09/10/17 04:45 09/10/17 04:45 09/10/17 04:45 09/10/17 04:45 09/10/17 04:45 Interpretation: Normal - General General appearance: Appears well, Alert - HEENT Head: Normocephalic, Atraumatic Eyes: Normal Pupils: PERRL Mucous membranes: Dry Pharynx: Normal - Respiratory Respiratory status: No respiratory distress, Tachypnea Breath sounds: Normal Chest palpation: Normal - Cardiovascular Rhythm: Regular Heart sounds: Normal auscultation Murmur: No - Abdominal Inspection: Normal Distension: No distension Bowel sounds: Normal Tenderness: Nontender Organomegaly: No organomegaly - Back Back: Normal, Nontender - Extremities General upper extremity: Normal inspection, Nontender, Normal color, Normal ROM , Normal temperature General lower extremity: Normal inspection, Nontender, Normal color, Normal ROM , Normal temperature, Normal weight bearing. No: Lebron's sign - Neurological Neuro grossly intact: Yes Cognition: Normal Orientation: AAOx4 Karval Coma Scale Eye Opening: Spontaneous Karval Coma Scale Verbal: Oriented Karval Coma Scale Motor: Obeys Commands Karval Coma Scale Total: 15 Speech: Normal Motor strength normal: LUE, RUE, LLE, RLE Sensory: Normal - Psychological Associated symptoms: Normal affect, Normal mood - Skin Skin Temperature: Warm Skin Moisture: Dry Skin Color: Normal Course - Re-evaluation Re-evalutation: 09/10/17 08:23 extremely elevated glucose at 740. Not in DKA somewhat more than likely hyperosmolar hyperglycemic state. Not in a coma at this time. IV fluids, insulin ordered. Consulted hospitalist for admit at this time. Of note, patient with diffuse ST changes but no ST elevation. Will repeat troponin in 2 hours, add hemoglobin A1c and lipid panel and repeat troponin. This has been discussed with the hospitalist. 09/10/17 08:24 09/10/17 08:26 Laboratory 09/10/17 09/10/17 09/10/17 06:45 06:45 06:45 WBC 8.7 RBC 7.19 H Hgb 14.8 Hct 47.9 MCV 67 L MCH 20.6 L MCHC 30.9 L RDW 16.6 H Plt Count 180 Seg Neutrophils % 68.8 Lymphocytes % 22.0 Monocytes % 8.1 Eosinophils % 0.5 Basophils % 0.6 Absolute Neutrophils 6.0 Absolute Lymphocytes 1.9 Absolute Monocytes 0.7 Absolute Eosinophils 0.0 Absolute Basophils 0.0 PT INR APTT Sodium 138.3 Potassium 5.4 H Chloride 93 L Carbon Dioxide 29 Anion Gap 16 BUN 33 H Creatinine 1.66 H Est GFR ( Amer) 51 L Est GFR (Non-Af Amer) 42 L Glucose 739 H* Calcium 10.3 H Total Bilirubin 1.1 Direct Bilirubin 0.6 H Neonat Total Bilirubin Not Reportable Neonat Direct Bilirubin Not Reportable Neonat Indirect Bili Not Reportable AST 29 ALT 23 Alkaline Phosphatase 156 H Creatine Kinase 25 L CK-MB (CK-2) 0.23 Troponin I 0.016 Total Protein 8.1 Albumin 4.6 Lipase 229.2 Urine Color Urine Appearance Urine pH Ur Specific [place] Urine Protein Urine Glucose (UA) Urine Ketones Urine Blood Urine Nitrite Urine Bilirubin Urine Urobilinogen Ur Leukocyte Esterase Urine WBC (Auto) Urine RBC (Auto) Urine Ascorbic Acid Digoxin 0.62 L 09/10/17 09/10/17 06:45 07:43 WBC RBC Hgb Hct MCV MCH MCHC RDW Plt Count Seg Neutrophils % Lymphocytes % Monocytes % Eosinophils % Basophils % Absolute Neutrophils Absolute Lymphocytes Absolute Monocytes Absolute Eosinophils Absolute Basophils PT 15.1 INR 1.13 APTT 30.0 Sodium Potassium Chloride Carbon Dioxide Anion Gap BUN Creatinine Est GFR ( Amer) Est GFR (Non-Af Amer) Glucose Calcium Total Bilirubin Direct Bilirubin Neonat Total Bilirubin Neonat Direct Bilirubin Neonat Indirect Bili AST ALT Alkaline Phosphatase Creatine Kinase CK-MB (CK-2) Troponin I Total Protein Albumin Lipase Urine Color STRAW Urine Appearance CLEAR Urine pH 5.0 Ur Specific [place] 1.028 Urine Protein NEGATIVE Urine Glucose (UA) >=500 H Urine Ketones 20 H Urine Blood NEGATIVE Urine Nitrite NEGATIVE Urine Bilirubin NEGATIVE Urine Urobilinogen NEGATIVE Ur Leukocyte Esterase NEGATIVE Urine WBC (Auto) 1 Urine RBC (Auto) 1 Urine Ascorbic Acid 20 H Digoxin Chest X-Ray 09/10/17 06:28 IMPRESSION: No acute cardiopulmonary findings. - Vital Signs Vital signs: Temp Pulse Resp BP Pulse Ox 98.4 F 110 H 20 103/65 96 09/10/17 04:45 09/10/17 04:45 09/10/17 08:00 09/10/17 04:45 09/10/17 08:00 - Laboratory Result Diagrams: 09/10/17 06:45 09/10/17 06:45 Laboratory results interpreted by me: 09/10/17 09/10/17 09/10/17 06:45 06:45 07:43 RBC 7.19 H MCV 67 L MCH 20.6 L MCHC 30.9 L RDW 16.6 H Potassium 5.4 H Chloride 93 L BUN 33 H Creatinine 1.66 H Est GFR ( Amer) 51 L Est GFR (Non-Af Amer) 42 L Glucose 739 H* Calcium 10.3 H Direct Bilirubin 0.6 H Alkaline Phosphatase 156 H Creatine Kinase 25 L Urine Glucose (UA) >=500 H Urine Ketones 20 H Urine Ascorbic Acid 20 H Digoxin 0.62 L - EKG Interpretation by Me EKG shows normal: Sinus rhythm, Ney, Intervals, QRS Complexes. abnormal: ST-T Waves Additional EKG results interpreted by me: 09/10/17 08:[address] segment depression and T-wave inversions consistent with possible global ischemia Discharge - Discharge Clinical Impression: Hyperglycemic hyperosmolar nonketotic coma Condition: Good Disposition: ADMITTED INPATIENT Admitting Provider: Hospitalist [facility] Unit Admitted: IMCU Referrals: KALEE MOSES PA-C [Primary Care Provider] - Follow up as needed
[2017-09-10] MEDS ORDERED: NORMAL SALINE 500 ML IV ONE (06:27)
--- NOTE | 2017-09-10 07:12 | RADIOLOGY REPORT (SQ) ---
EXAM DESCRIPTION: XR CHEST 1 VIEW CLINICAL HISTORY: 61 years Male, sob COMPARISON: 4.3.18 NUMBER OF VIEWS/TECHNIQUE: 1/AP FINDINGS: Adequate lung volume, clear parenchyma, normal cardiac silhouette, left cardiac simulator with leads, and intact bony thorax. IMPRESSION: No acute cardiopulmonary findings.
[2017-09-10 07:56] LABS: APPEARANCE,URINE CLEAR; BILIRUBIN,URINE NEGATIVE (NEGATIVE); COLOR,URINE STRAW; GLUCOSE, URINE >=500 mg/dL (NEGATIVE); KETONES,URINE 20 mg/dL (NEGATIVE); LEUKOCYTE ESTERASE,URINE NEGATIVE (NEGATIVE); NITRITE,URINE NEGATIVE (NEGATIVE); PROTEIN,URINE NEGATIVE (NEGATIVE); URINE SPECIFIC GRAVITY 1.028; UROBILINOGEN,URINE NEGATIVE mg/dL (<2.0)
[2017-09-10 07:56] LABS: INTERNATIONAL RATION (INR) 1.13; PROTHROMBIN TIME 15.1 SEC (11.4-15.4)
[2017-09-10 07:58] LABS: ALANINE AMINOTRANSFERASE 23 U/L (21-72); ALBUMIN 4.6 g/dL (3.5-5.0); ALKALINE PHOSPHATASE 156 U/L (38-126); ANION GAP 16 (5-19); ASPARTATE AMINO TRANSFERASE 29 U/L (17-59); BILIRUBIN,DIRECT 0.6 mg/dL (0.0-0.4); BILIRUBIN,TOTAL 1.1 mg/dL (0.2-1.3); BLOOD UREA NITROGEN 33 mg/dL (7-20); CALCIUM 10.3 mg/dL (8.4-10.2); CARBON DIOXIDE 29 mmol/L (22-30); CHLORIDE 93 mmol/L (98-107); CREATINE KINASE 25 U/L (55-170); DIGOXIN 0.62 ng/mL (0.8-2.0); LIPASE 229.2 U/L (23-300); POTASSIUM 5.4 mmol/L (3.6-5.0); SODIUM 138.3 mmol/L (137-145); TOTAL PROTEIN 8.1 g/dL (6.3-8.2)
[2017-09-10 08:01] LABS: ABSOLUTE LYMPHOCYTES (AUTO) 1.9 10^3/uL (0.5-4.7); ABSOLUTE MONOCYTES (AUTO) 0.7 10^3/uL (0.1-1.4); BASOPHILS % (AUTO) 0.6 % (0-2); EOSINOPHILS % (AUTO) 0.5 % (0-6); HEMATOCRIT 47.9 % (37.9-51.0); HEMOGLOBIN 14.8 g/dL (13.5-17.0); MEAN CORPUSCULAR HEMOGLOBIN 20.6 pg (27.0-33.4); MEAN CORPUSCULAR HGB CONC 30.9 g/dL (32.0-36.0); MEAN CORPUSCULAR VOLUME 67 fl (80-97); MONOCYTES % (AUTO) 8.1 % (3-13); PLATELET COUNT 180 10^3/uL (150-450); RED CELL DISTRIBUTION WIDTH 16.6 % (11.5-14.0); SEGMENTED NEUTROPHILS % (AUTO) 68.8 % (42-78); TOTAL CELLS COUNTED % (AUTO) 100 %; WHITE BLOOD COUNT 8.7 10^3/uL (4.0-10.5)
[2017-09-10 08:07] LABS: CREATINE KINASE MB 0.23 ng/mL (<4.55); GLUCOSE 739 mg/dL (75-110); TROPONIN I 0.016 ng/mL
[2017-09-10 08:08] LABS: RED BLOOD COUNT 7.19 10^6/uL (4.35-5.55)
[2017-09-10] MEDS ORDERED: INSULIN REG, HUMAN 100 UNIT/ML 3 ML VIAL (PYX) IV ONE (08:17)
[2017-09-10] MEDS ORDERED: NORMAL SALINE 1000 ML 1,000 ML IV ONE (08:17)
[2017-09-10 08:30] LABS: CHOLESTEROL 180.69 mg/dL (0-200); TRIGLYCERIDES 254 mg/dL (<150)
[2017-09-10 08:41] LABS: DIRECT LDL 98 mg/dL (<100)
[2017-09-10 08:50] LABS: VLDL CHOLESTEROL 50.8 mg/dL (10-31)
[2017-09-10] MEDS ORDERED: PROMETHAZINE HCL INJ 25 MG/1 ML VIAL IV PRN (09:39)
[2017-09-10] MEDS ORDERED: ACETAMINOPHEN 325 MG TABLET PO PRN (09:39)
[2017-09-10] MEDS ORDERED: IPRATROPIUM/ALBUTEROL 0.5-2.5 MG/3 ML AMPUL NEB PRN (09:39)
[2017-09-10] MEDS ORDERED: MAGNESIUM HYDROXIDE SUSP 30 ML UDCUP PO PRN (09:39)
[2017-09-10] MEDS ORDERED: DEXTROSE 40% GEL 15 GM TUBE PO PRN ×2 (09:49)
[2017-09-10] MEDS ORDERED: DEXTROSE 50%-WATER 25 GM/50 ML DISP.SYRIN IV PRN ×2 (09:49)
[2017-09-10] MEDS ORDERED: GLUCAGON,HUMAN RECOMB 1 MG INJ IM PRN (09:49)
[2017-09-10] MEDS ORDERED: INSULIN GLARGINE,HUM.REC.ANLOG 300 UNIT/3 ML INSULN.PEN SUBCUT SCH (10:00)
[2017-09-10] MEDS ORDERED: INSULIN GLARGINE,HUM.REC.ANLOG 1,000 UNIT/10 ML UNIT SUBCUT ONE (10:20)
[2017-09-10] MEDS ORDERED: CLOTRIMAZOLE 10 MG TROCHE PO ONE (10:30)
[2017-09-10] MEDS ORDERED: INSULIN LISPRO 100 UNIT/ML 3 ML VIAL SUBCUT ONE ×3 (10:30→17:15)
[2017-09-10] MEDS: APIXABAN 5 MG TABLET PO SCH ×2 (10:43→22:56)
[2017-09-10] MEDS: DOCUSATE SODIUM 100 MG CAPSULE PO SCH (10:43)
[2017-09-10] MEDS: FAMOTIDINE 20 MG TABLET PO SCH ×2 (10:43→22:56)
--- NOTE | 2017-09-10 11:43 | EKG REPORT ---
SEVERITY:- ABNORMAL ECG - SINUS RHYTHM ABNORMAL T, PROBABLE ISCHEMIA, WIDESPREAD : Confirmed by: Lali Singh MD 10-Sep-2017 11:42:21
[2017-09-10] MEDS: NORMAL SALINE 1000 ML 1,000 ML IV PRN ×2 (12:24→20:29)
[2017-09-10] MEDS: CLOTRIMAZOLE 10 MG TROCHE PO SCH ×2 (14:04→22:56)
--- NOTE | 2017-09-10 15:16 | PDOC H&P ---
History of Present Illness Admission Date/PCP: 09/10/17 08:54 KALEE MOSES PA-C Patient complains of: Fatigue, anorexia, polyuria, polydipsia History of Present Illness: TIKI FRIEDMAN is a 61 year old male with a past medical history significant for CHF, CKD stage III 2, pulmonary embolism (chronically on Eliquis), hyperlipidemia, HTN, DIPTI (home O2 2lpm while sleeping) who presented to the emergency department today with a complaint of 3 weeks of blurred vision, fatigue, poor appetite, and general malaise. He reports that he has had approximately 1 week of polydipsia, polyuria, and nausea without vomiting. He has had occasional loose stools. He denies fever, chills, dizziness, chest pain, palpitations, dyspnea, abdominal pain, vomiting, dysuria. Evaluation in the emergency department today revealed an EKG with normal sinus rhythm and T-wave inversion to diffuse leads, benign chest x-ray, hyperkalemia ( 5.4), acute on chronic kidney injury with an elevated creatinine at 1.66 and BUN of 33, glucose 739, and hemoglobin A1c greater than 14%. He is referred to the hospitalist service for observational admission and management of new onset diabetes mellitus. Past Medical History Cardiac Medical History: Reports: Congestive Heart Failure, DVT, Hypertension, Pulmonary Embolism Denies: Coronary Artery Disease, Myocardial Infarction Pulmonary Medical History: Reports: Sleep Apnea EENT Medical History: Reports: None Neurological Medical History: Denies: Hemorrhagic CVA, Ischemic CVA, Migraine, Seizures Endocrine Medical History: Denies: Hyperthyroidism, Hypothyroidism Renal/ Medical History: Reports: Chronic Kidney Disease Malignancy Medical History: Reports: None GI Medical History: Reports: None Musculoskeltal Medical History: Reports: Arthritis Skin Medical History: Reports: None Psychiatric Medical History: Denies: Depression Traumatic Medical History: Reports: None Hematology: Reports: None Infectious Medical History: Reports: None Past Surgical History Past Surgical History: Reports: Cardiac Catheterization - In [place] about 10 years ago, Orthopedic Surgery - right hand 4th finger, Pacemaker Social History Information Source: Patient Lives with: Alone Smoking Status: Former Smoker Last Time Smoked: 20 years Frequency of Alcohol Use: Rare Hx Recreational Drug Use: No - rare Drugs: Marijuana Hx Prescription Drug Abuse: No - Advance Directive Resuscitation Status: Do Not Intubate Family History Family History: Arthritis, DM, Hyperlipidemia, Hypertension, Malignancy, Thyroid Disfunction Parental Family History Reviewed: Yes Children Family History Reviewed: Yes Sibling(s) Family History Reviewed.: Yes Medication/Allergy Home Medications: Apixaban [Eliquis 5 mg Tablet] 5 mg PO Q12 09/10/17 Atorvastatin Calcium [Lipitor 40 mg Tablet] 40 mg PO QHS 09/10/17 Carvedilol [Coreg 6.25 mg Tablet] 6.25 mg PO Q12 09/10/17 Digoxin [Lanoxin 0.125 mg Tablet] 0.125 mg PO DAILY 09/10/17 Docusate Sodium [Colace 100 mg Capsule] 100 mg PO Q12 09/10/17 Sacubitril/Valsartan [Entresto 24 mg/26 mg Tablet] 1 tab PO Q12 09/10/17 Torsemide [Demadex 10 mg Tablet] 10 mg PO Q12 09/10/17 Valsartan [Diovan 80 mg Tablet] 80 mg PO DAILY 09/10/17 Allergies/Adverse Reactions: No Known Allergies Allergy (Verified 09/10/17 10:50) Review of Systems Constitutional: PRESENT: anorexia, fatigue, weakness. ABSENT: chills, fever(s) , headache(s), weight gain, weight loss Eyes: PRESENT: visual disturbances Ears: ABSENT: hearing changes Nose, Mouth, and Throat: PRESENT: mouth pain, sore throat Cardiovascular: ABSENT: chest pain, dyspnea on exertion, edema, orthropnea, palpitations Respiratory: ABSENT: cough, hemoptysis Gastrointestinal: PRESENT: nausea. ABSENT: abdominal pain, constipation, diarrhea, hematemesis, hematochezia, vomiting Genitourinary: ABSENT: dysuria, hematuria Musculoskeletal: ABSENT: joint swelling Integumentary: ABSENT: rash, wounds Neurological: ABSENT: abnormal gait, abnormal speech, confusion, dizziness, focal weakness, syncope Psychiatric: ABSENT: anxiety, depression, homidical ideation, suicidal ideation Endocrine: PRESENT: polydipsia, polyuria. ABSENT: cold intolerance, heat intolerance Hematologic/Lymphatic: ABSENT: easy bleeding, easy bruising Physical Exam Vital Signs: Temp Pulse Resp BP Pulse Ox 98.4 F 110 H 20 103/65 96 09/10/17 04:45 09/10/17 04:45 09/10/17 08:00 09/10/17 04:45 09/10/17 08:00 General appearance: PRESENT: no acute distress, cooperative, well-developed, well-nourished Head exam: PRESENT: atraumatic, normocephalic Eye exam: PRESENT: conjunctiva pink, EOMI, PERRLA. ABSENT: scleral icterus Mouth exam: PRESENT: moist, tongue midline, other - White plaques to mucosal membrane Teeth exam: PRESENT: edentulous, poor dentation Neck exam: ABSENT: carotid bruit, JVD, lymphadenopathy, thyromegaly Respiratory exam: PRESENT: clear to auscultation rikki, symmetrical, unlabored. ABSENT: rales, rhonchi, wheezes Cardiovascular exam: PRESENT: RRR, +S1, +S2. ABSENT: diastolic murmur, rubs, systolic murmur Pulses: PRESENT: normal dorsalis pedis pul Vascular exam: PRESENT: normal capillary refill GI/Abdominal exam: PRESENT: normal bowel sounds, soft. ABSENT: distended, guarding, mass, organolmegaly, rebound, tenderness Rectal exam: PRESENT: deferred Extremities exam: PRESENT: full ROM. ABSENT: calf tenderness, clubbing, pedal edema Neurological exam: PRESENT: alert, awake, oriented to person, oriented to place , oriented to time, oriented to situation, CN II-XII grossly intact. ABSENT: motor sensory deficit Psychiatric exam: PRESENT: appropriate affect, normal mood. ABSENT: homicidal ideation, suicidal ideation Skin exam: PRESENT: dry, intact, warm. ABSENT: cyanosis, rash Results Impressions: Chest X-Ray 09/10/17 06:28 IMPRESSION: No acute cardiopulmonary findings. Assessment & Plan - Diagnosis (1) Diabetes mellitus Qualifiers: Diabetes mellitus type: type 2 Diabetes mellitus assisted insulin use: without assisted use Diabetes mellitus complication status: with hyperglycemia Qualified Code(s): E11.65 - Type 2 diabetes mellitus with hyperglycemia Is this a current diagnosis for this admission?: Yes Plan: The patient presented with several weeks of blurred vision,, generalized weakness, anorexia, and more recently polydipsia and polyuria. Hemoglobin A1c greater than 14%. He was provided a normal saline bolus 1 L and regular insulin 10 units IV by the emergency department staff. He is admitted to the medical floor on continuous cardiac telemetry. He is provided gentle IV fluid rehydration (monitoring closely for fluid volume overload given patient's history of CHF) He is provided Lantus 10 units daily. He is placed on a consistent carb diet with Accu-Cheks before meals and at bedtime with Humalog for sliding scale coverage. We will ask the registered dietitian and community health educator to meet with the patient. We will also ask discharge planning to assess needs; patient appears to have a very low health literacy and would benefit greatly from home health services for disease and medication management. (2) Hyperkalemia Is this a current diagnosis for this admission?: Yes Plan: Likely secondary to hyperosmolar hyperglycemic state and newly diagnosed diabetic with presenting glucose of 739 and hemoglobin A1c greater than 14. Patient is being provided gentle IV fluid rehydration. Expect that potassium will decrease with initiation of insulin therapy. We will monitor with serial chemistries. (3) Acute on chronic renal failure Qualifiers: Chronic kidney disease stage: stage 2 (mild) Is this a current diagnosis for this admission?: Yes Plan: Patient's creatinine is slightly elevated from baseline (1.30). Creatinine is 1.66 and BUN 33. This is likely secondary to relative dehydration and patient presenting with hyperglycemia secondary to newly diagnosed diabetes mellitus. We will provide gentle IV fluid resuscitation. Avoid nephrotoxic medications. We will monitor with serial chemistries. (4) Congestive heart failure Qualifiers: Qualified Code(s): I50.43 - Acute on chronic combined systolic (congestive) and diastolic (congestive) heart failure Is this a current diagnosis for this admission?: Yes Plan: The patient presents with chronic combined systolic and diastolic CHF. Echocardiogram (05/05/16) is reviewed; LVEF is estimated to be less than 20% with mild to moderate diastolic dysfunction and global hypokinesis of the left ventricle. Right ventricular systolic function is also mild to moderately reduced. The patient does report pacemaker/AICD; he denies recent shocks. ProBNP is 140 Initial troponins are negative. EKG demonstrated a normal sinus rhythm with diffuse T-wave inversion. The patient will be monitored on continuous cardiac telemetry. We will trend troponins. The patient's home medications Eliquis, atorvastatin, carvedilol, digoxin, and Entresto are continued. Holding valsartan (will need to review closely to determine whether or not this valsartan was intended to be given in addition to his Entresto). Holding torsemide while rehydrating patient; will monitor closely for evidence of fluid volume overload and resume torsemide once adequately rehydrated. He is on a cardiac diet. We will monitor daily weights and strict I's and O's. EKG findings were reviewed with Dr. Robles; no further recommendations were made. Diffuse T-wave inversion is nonspecific and may be related to his hyperglycemia. (5) Essential hypertension Is this a current diagnosis for this admission?: Yes Plan: Continue home medications with the exception of valsartan and torsemide as described above. (6) Hyperlipidemia Qualifiers: Hyperlipidemia type: unspecified Qualified Code(s): E78.5 - Hyperlipidemia , unspecified Is this a current diagnosis for this admission?: Yes Plan: Lipid panel this morning revealed HDL 26, LDL 98, triglycerides 254, total cholesterol 180. We will continue the patient's home dose atorvastatin. Have asked the registered dietitian and patient educator to meet with patient. (7) Sleep apnea syndrome Qualifiers: Sleep apnea type: unspecified type Qualified Code(s): G47.30 - Sleep apnea , unspecified Is this a current diagnosis for this admission?: Yes Plan: Patient endorses supplemental oxygen at 2 lpm while sleeping. We will provide supplemental oxygen as needed to maintain saturations greater than 88%. Recommend follow-up with primary care provider or medical technologist prn for outpatient sleep study/evaluation for CPAP needs. - Time Time Spent: Greater than 70 Minutes Medications reviewed and adjusted accordingly: Yes Anticipated discharge: Home
[2017-09-10 16:44] LABS: ANION GAP 13 (5-19); BLOOD UREA NITROGEN 27 mg/dL (7-20); CALCIUM 9.6 mg/dL (8.4-10.2); CARBON DIOXIDE 30 mmol/L (22-30); CHLORIDE 102 mmol/L (98-107); SODIUM 144.9 mmol/L (137-145)
[2017-09-10 16:53] LABS: GLUCOSE 553 mg/dL (75-110)
[2017-09-10] MEDS ORDERED: ATORVASTATIN CALCIUM 40 MG TABLET PO SCH (22:00)
[2017-09-10] MEDS: SACUBITRIL/VALSARTAN 24 MG/26 MG TABLET PO SCH (22:56)
[2017-09-10] MEDS: CARVEDILOL 6.25 MG TABLET PO SCH (22:56)
[2017-09-10] MEDS: INSULIN LISPRO 100 UNIT/ML 3 ML VIAL SUBCUT PRN (22:58)
[2017-09-11] MEDS: CLOTRIMAZOLE 10 MG TROCHE PO SCH ×2 (06:42→14:29)
[2017-09-11] MEDS: APIXABAN 5 MG TABLET PO SCH (09:03)
[2017-09-11] MEDS: FAMOTIDINE 20 MG TABLET PO SCH (09:03)
[2017-09-11] MEDS: CARVEDILOL 6.25 MG TABLET PO SCH (09:03)
[2017-09-11] MEDS: DOCUSATE SODIUM 100 MG CAPSULE PO SCH (09:05)
[2017-09-11] MEDS: INSULIN LISPRO 100 UNIT/ML 3 ML VIAL SUBCUT PRN ×2 (09:06→12:38)
[2017-09-11] MEDS: SACUBITRIL/VALSARTAN 24 MG/26 MG TABLET PO SCH (09:06)
[2017-09-11] MEDS ORDERED: INSULIN GLARGINE,HUM.REC.ANLOG 300 UNIT/3 ML INSULN.PEN SUBCUT SCH (10:00)
[2017-09-11] MEDS ORDERED: DIGOXIN 0.125 MG TABLET PO SCH (10:00)
[2017-09-11 10:30] LABS: HEMATOCRIT 41.9 % (37.9-51.0); HEMOGLOBIN 12.9 g/dL (13.5-17.0); MEAN CORPUSCULAR HEMOGLOBIN 19.8 pg (27.0-33.4); MEAN CORPUSCULAR HGB CONC 30.7 g/dL (32.0-36.0); MEAN CORPUSCULAR VOLUME 65 fl (80-97); PLATELET COUNT 113 10^3/uL (150-450); RED BLOOD COUNT 6.48 10^6/uL (4.35-5.55); RED CELL DISTRIBUTION WIDTH 16.4 % (11.5-14.0); WHITE BLOOD COUNT 6.7 10^3/uL (4.0-10.5)
[2017-09-11 10:40] LABS: ANION GAP 12 (5-19); BLOOD UREA NITROGEN 15 mg/dL (7-20); CALCIUM 9.2 mg/dL (8.4-10.2); CARBON DIOXIDE 23 mmol/L (22-30); CHLORIDE 105 mmol/L (98-107); GLUCOSE 352 mg/dL (75-110); POTASSIUM 4.6 mmol/L (3.6-5.0); SODIUM 139.6 mmol/L (137-145)
--- NOTE | 2017-09-11 12:25 | PDOC DISCHARGE SUMMARY ---
General - Admit/Disc Date/PCP Admission Date/Primary Care Provider: 09/10/17 08:54 Discharge Date: 09/11/17 - Discharge Diagnosis (1) Diabetes mellitus Is this a current diagnosis for this admission?: Yes (2) Hyperkalemia Is this a current diagnosis for this admission?: Yes (3) Acute on chronic renal failure Is this a current diagnosis for this admission?: Yes (4) Congestive heart failure Is this a current diagnosis for this admission?: Yes (5) Essential hypertension Is this a current diagnosis for this admission?: Yes (6) Hyperlipidemia Is this a current diagnosis for this admission?: Yes (7) Sleep apnea syndrome Is this a current diagnosis for this admission?: Yes - Additional Information Resuscitation Status: Do Not Intubate Discharge Diet: Cardiac, Diabetic Discharge Activity: Activity As Tolerated, Balance Activity w/Rest, Weigh Daily Prescriptions: Blood Sugar Diagnostic [Blood Glucose Test Strip] 1 each MC DAILY #90 strip Blood-Glucose Meter [Blood Glucose Meter] 1 unit MC DAILY PRN #1 unit PRN Reason: Lancets [Blood Lancets] 1 each MC DAILY #90 each RX: Clotrimazole [Mycelex 10 mg Omega] 10 mg PO Q8 #30 omega RX: Insulin Glargine,Hum.rec.anlog [Lantus Insulin 100 Unit/mL] 10 unit SUBCUT DAILY #1 insuln.pen RX: Metformin HCl 850 mg PO BID #60 tablet RX: Pen Needle, Diabetic [Ultra-Fine Osiris Pen Needle] 1 each MC DAILY #30 dis.needle Home Medications: RX: Apixaban [Eliquis 5 mg Tablet] 5 mg PO Q12 09/10/17 RX: Atorvastatin Calcium [Lipitor 40 mg Tablet] 40 mg PO QHS 09/10/17 RX: Carvedilol [Coreg 6.25 mg Tablet] 6.25 mg PO Q12 09/10/17 RX: Digoxin [Lanoxin 0.125 mg Tablet] 0.125 mg PO DAILY 09/10/17 RX: Docusate Sodium [Colace 100 mg Capsule] 100 mg PO Q12 09/10/17 RX: Sacubitril/Valsartan [Entresto 24 mg/26 mg Tablet] 1 tab PO Q12 09/10/17 RX: Torsemide [Demadex 10 mg Tablet] 10 mg PO Q12 09/10/17 RX: Valsartan [Diovan 80 mg Tablet] 80 mg PO DAILY 09/10/17 Blood Sugar Diagnostic [Blood Glucose Test Strip] 1 each DAILY #90 strip 11/21 Blood-Glucose Meter [Blood Glucose Meter] 1 unit MC DAILY PRN #1 unit 09/11/17 Lancets [Blood Lancets] 1 each MC DAILY #90 each 09/11/17 RX: Acetaminophen [Tylenol 325 mg Tablet] 650 mg PO Q4HP PRN tablet 09/11/17 RX: Apixaban [Eliquis 5 mg Tablet] 5 mg PO Q12 tablet 09/11/17 RX: Atorvastatin Calcium [Lipitor 40 mg Tablet] 40 mg PO QHS tablet 09/11/17 RX: Clotrimazole [Mycelex 10 mg Omega] 10 mg PO Q8 #30 omega 09/11/17 RX: Insulin Glargine,Hum.rec.anlog [Lantus Insulin 100 Unit/mL] 10 unit SUBCUT DAILY #1 insuln.pen 09/11/17 RX: Metformin HCl 850 mg PO BID #60 tablet 09/11/17 RX: Pen Needle, Diabetic [Ultra-Fine Osiris Pen Needle] 1 each DAILY #30 dis.needle 09/11/17 History of Present Illness History of Present Illness: TIKI FRIEDMAN is a 61 year old male with a past medical history significant for CHF, CKD stage III 2, pulmonary embolism (chronically on Eliquis), hyperlipidemia, HTN, DIPTI (home O2 2lpm while sleeping) who presented to the emergency department today with a complaint of 3 weeks of blurred vision, fatigue, poor appetite, and general malaise. He reports that he has had approximately 1 week of polydipsia, polyuria, and nausea without vomiting. He has had occasional loose stools. He denies fever, chills, dizziness, chest pain, palpitations, dyspnea, abdominal pain, vomiting, dysuria. Evaluation in the emergency department today revealed an EKG with normal sinus rhythm and T-wave inversion to diffuse leads, benign chest x-ray, hyperkalemia ( 5.4), acute on chronic kidney injury with an elevated creatinine at 1.66 and BUN of 33, glucose 739, and hemoglobin A1c greater than 14%. He is referred to the hospitalist service for observational admission and management of new onset diabetes mellitus. Hospital Course Hospital Course: The patient was admitted status for new onset diabetes management and education. Upon presentation to the emergency department, the patient had complained of blurred vision, polydipsia, polyuria, generalized weakness and fatigue. His hemoglobin A1c was found to be greater than 14% with a random glucose of 739. The patient's hyperkalemia resolved with IV fluid rehydration and management of elevated glucose. Acute renal insufficiency resolved and he has returned to his baseline kidney function with a creatinine of 0.90 and BUN of 15. The patient's CHF was evaluated to be stable with a proBNP of 140, negative troponins x3, and EKG demonstrating normal sinus rhythm with nonspecific diffuse T-wave changes. The patient's torsemide was held while rehydrating the patient. He is discharged home on his normal cardiac medication regimen. The patient's blood sugar was controlled with generous IV fluid hydration and insulin. He has met with the clinical systems educator and registered dietitian. He is also had multiple teaching episodes of the nursing staff. Unfortunately, the patient continues to have difficulty with recalling information. Therefore , arrangements are being made for him to receive home health nursing for disease management and education. The patient is able to demonstrate insulin injections and to teach back that he will be taking Lantus 10 units once daily. He is also placed on metformin 850 mg twice daily with meals. He is encouraged to follow a consistent carb diet as well as the cardiac diet recommended for his established chronic heart failure. The patient is instructed to follow-up with his primary care provider within 1 week and with his direct mail marketer as scheduled. At time of discharge, the patient is in stable condition and reports that his symptoms have resolved. Physical Exam Vital Signs: Temp Pulse Resp BP Pulse Ox 98.2 F 65 18 122/69 98 09/11/17 07:53 09/11/17 07:53 09/11/17 07:53 09/11/17 07:53 09/11/17 07:53 Intake & Output 09/10/17 09/11/17 09/12/17 06:59 06:59 06:59 Intake Total 3964 Balance 3964 Weight 76 kg General appearance: PRESENT: no acute distress, cooperative, well-developed, well-nourished Head exam: PRESENT: atraumatic, normocephalic Eye exam: PRESENT: conjunctiva pink, EOMI, PERRLA. ABSENT: scleral icterus Ear exam: PRESENT: normal external ear exam Mouth exam: PRESENT: moist, tongue midline Neck exam: ABSENT: carotid bruit, JVD, lymphadenopathy, thyromegaly Respiratory exam: PRESENT: clear to auscultation rikki, symmetrical, unlabored. ABSENT: rales, rhonchi, wheezes Cardiovascular exam: PRESENT: RRR. ABSENT: diastolic murmur, rubs, systolic murmur Pulses: PRESENT: normal dorsalis pedis pul Vascular exam: PRESENT: normal capillary refill GI/Abdominal exam: PRESENT: normal bowel sounds, soft. ABSENT: distended, guarding, mass, organolmegaly, rebound, tenderness Rectal exam: PRESENT: deferred Extremities exam: PRESENT: full ROM. ABSENT: calf tenderness, clubbing, pedal edema Neurological exam: PRESENT: alert, awake, oriented to person, oriented to place , oriented to time, oriented to situation, CN II-XII grossly intact. ABSENT: motor sensory deficit Psychiatric exam: PRESENT: appropriate affect, normal mood. ABSENT: homicidal ideation, suicidal ideation Skin exam: PRESENT: dry, intact, warm. ABSENT: cyanosis, rash Results Laboratory Results: 09/11/17 10:10 09/11/17 10:10 09/10/17 09/10/17 09/11/17 14:20 16:07 10:10 WBC 6.7 RBC 6.48 H Hgb 12.9 L Hct 41.9 MCV 65 L MCH 19.8 L MCHC 30.7 L RDW 16.4 H Plt Count 113 L Sodium Cancelled 144.9 Potassium Cancelled 4.0 D Chloride Cancelled 102 Carbon Dioxide Cancelled 30 Anion Gap Cancelled 13 BUN Cancelled 27 H Creatinine Cancelled 1.25 Est GFR ( Amer) Cancelled > 60 Est GFR (Non-Af Amer) Cancelled 59 L Glucose Cancelled 553 H* Calcium Cancelled 9.6 09/11/17 10:10 WBC RBC Hgb Hct MCV MCH MCHC RDW Plt Count Sodium 139.6 Potassium 4.6 Chloride 105 Carbon Dioxide 23 Anion Gap 12 BUN 15 Creatinine 0.90 Est GFR ( Amer) > 60 Est GFR (Non-Af Amer) > 60 Glucose 352 H Calcium 9.2 09/10/17 09/10/17 09/10/17 10:06 10:06 16:07 Troponin I 0.012 0.015 NT-Pro-B Natriuret Pep 140 Impressions: Chest X-Ray 09/10/17 06:28 IMPRESSION: No acute cardiopulmonary findings. Qualifiers - * PATIENT BEING DISCHARGED WITH ANY OF THE FOLLOWING DIAGNOSIS: No Plan Discharge Plan: Discharge to home with home health services. Time Spent: Less than 30 Minutes
[2017-09-11 15:35] VITALS: BP 110/61
== END 2017-09-11 15:38 | disposition home health service (06) ==
LOC: ER 04:34 → INTOOBSV 08:54 → EH 08:54 → 3N 11:23
PROVIDERS: ADMIT Internal Medicine; ATTEND Internal Medicine
DX: E11.65 Type 2 diabetes mellitus with hyperglycemia (principal); E87.5 Hyperkalemia; E11.22 Type 2 diabetes mellitus with diabetic chronic kidney disease; I13.0 Hypertensive heart and chronic kidney disease with heart failure and stage 1 through stage 4 chronic kidney disease, or unspecified chronic kidney disease; N18.2 Chronic kidney disease, stage 2 (mild); I50.43 Acute on chronic combined systolic (congestive) and diastolic (congestive) heart failure; N17.9 Acute kidney failure, unspecified; E78.5 Hyperlipidemia, unspecified; G47.30 Sleep apnea, unspecified; G47.33 Obstructive sleep apnea (adult) (pediatric); J02.9 Acute pharyngitis, unspecified; K13.79 Other lesions of oral mucosa; Z86.711 Personal history of pulmonary embolism; R63.0 Anorexia; R00.2 Palpitations; R19.8 Other specified symptoms and signs involving the digestive system and abdomen; Z68.22 Body mass index [BMI] 22.0-22.9, adult; Z99.81 Dependence on supplemental oxygen; Z86.718 Personal history of other venous thrombosis and embolism; Z87.891 Personal history of nicotine dependence; Z82.49 Family history of ischemic heart disease and other diseases of the circulatory system; Z83.3 Family history of diabetes mellitus; Z95.810 Presence of automatic (implantable) cardiac defibrillator; Z79.899 Other long term (current) drug therapy
CPT/HCPCS: 93005; 99285; 96360; 36415 ×2; 82553; 82962 ×2; 82550; 80162; 83690; 85025; 85027; 85610; 85730; 80048 ×2; 80053; 81001; 84484; 83036; 80061; 83880; 71045; 93010; G0378 ×3; J1815 ×5; J3490 ×5; J7030; J7040

== ENCOUNTER 2017-09-23 10:54 | Emergency (ER) | payer OTHER ==
--- NOTE | 2017-09-23 11:13 | ER Document Report ---
ED Eye Complaint - General Chief Complaint: Vision Problem Stated Complaint: VISUAL PROBLEMS Time Seen by Provider: 09/23/17 11:03 Notes: The patient is a 61-year-old male, past medical history porrly controlled IDDM, presents with 1 month of blurry vision. He saw an kettle cleaner and was prescribed glasses a few weeks ago. He said the symptoms started after he had hyperglycemia and was admitted to the hospital. He has not seen an powder blender for this. He had home nursing today and was told to come to the hospital for this complaint. Patient denies eye pain, redness, discharge from the eye, headache or eye injury. TRAVEL OUTSIDE OF THE [place] IN LAST 30 DAYS: No - Related Data Allergies/Adverse Reactions: No Known Allergies Allergy (Verified 09/10/17 10:50) Past Medical History - General Information source: Patient - Social History Smoking Status: Unknown if Ever Smoked Family History: Arthritis, DM, Hyperlipidemia, Hypertension, Malignancy, Thyroid Disfunction - Past Medical History Cardiac Medical History: Reports: Hx Congestive Heart Failure, Hx DVT, Hx Hypertension, Hx Pulmonary Embolism Denies: Hx Coronary Artery Disease, Hx Heart Attack Pulmonary Medical History: Reports: Hx Sleep Apnea Neurological Medical History: Denies: Hx Migraine, Hx Seizures Endocrine Medical History: Denies: Hx Hyperthyroidism, Hx Hypothyroidism Renal/ Medical History: Denies: Hx Peritoneal Dialysis GI Medical History: Reports: Hx Colonoscopy Musculoskeltal Medical History: Reports Hx Arthritis, Reports Hx Musculoskeletal Trauma Psychiatric Medical History: Reports: Hx Anxiety Denies: Hx Depression Past Surgical History: Reports: Hx Cardiac Catheterization - In [place] about 10 years ago, Hx Oral Surgery - teeth pulled, Hx Orthopedic Surgery - right hand 4th finger, Hx Pacemaker - Immunizations Immunizations up to date: Yes Hx Diphtheria, Pertussis, Tetanus Vaccination: Yes Review of Systems - Review of Systems Notes: REVIEW OF SYSTEMS: CONSTITUTIONAL: -fevers, -chills EENT: -eye pain, +blurry vision, -difficulty swallowing, -nasal congestion GASTROINTESTINAL: -abdominal pain, -nausea, -vomiting, -diarrhea GENITOURINARY: -dysuria, -hematuria MUSCULOSKELETAL: -back pain, -neck pain SKIN: -rash or skin lesions. HEMATOLOGIC: -easy bruising or bleeding. LYMPHATIC: -swollen, enlarged glands. NEUROLOGICAL: -altered mental status or loss of consciousness, -headache, - neurologic symptoms PSYCHIATRIC: -anxiety, -depression. ALL OTHER SYSTEMS REVIEWED AND NEGATIVE. Physical Exam - Vital signs Vitals: Temp Pulse Resp BP Pulse Ox 98.2 F 81 16 122/65 97 09/23/17 11:02 09/23/17 11:02 09/23/17 11:02 09/23/17 11:02 09/23/17 11:02 - Notes Notes: PHYSICAL EXAMINATION: GENERAL: Well-appearing, well-nourished and in no acute distress. HEAD: Atraumatic, normocephalic. EYES: Pupils equal round and reactive to light, extraocular movements intact, sclera anicteric, conjunctiva are normal. ENT: nares patent, oropharynx clear without exudates. Moist mucous membranes. NECK: Normal range of motion, supple without lymphadenopathy LUNGS: Breath sounds clear to auscultation bilaterally and equal. No wheezes rales or rhonchi. HEART: Regular rate and rhythm without murmurs ABDOMEN: Soft, nontender, normoactive bowel sounds. No guarding, no rebound. No masses appreciated. EXTREMITIES: Normal range of motion, no pitting or edema. No cyanosis. NEUROLOGICAL: Cranial nerves grossly intact. Normal speech, normal gait. Normal sensory and motor exams. SKIN: Warm, Dry, normal turgor, no rashes or lesions noted. Course - Re-evaluation Re-evalutation: With his poorly controlled DM (Hgb A1C >14% a few weeks ago), suspect a component of diabetic retinopathy. Symptoms are ongoing for over a month. No signs of acute closed angle glaucoma, retinal detachment or corneal ulcer/ abrasion. 09/23/17 11:[address] Deutsch's office and made patient an appointment for Monday 09/25 at 10:30 am. Pt understands. - Vital Signs Vital signs: Temp Pulse Resp BP Pulse Ox 98.2 F 81 16 122/65 97 09/23/17 11:02 09/23/17 11:02 09/23/17 11:02 09/23/17 11:02 09/23/17 11:02 Discharge - Discharge Clinical Impression: Blurry vision, bilateral Condition: Stable Disposition: HOME, SELF-CARE Additional Instructions: You have an appointment with the powder blender on Monday 09/25 at 10:30 am for further evaluation of your blurry vision for the past month. Referrals: RADHA DASILVA DO [Primary Care Provider] - Follow up as needed NICHOL DEUTSCH MD [ACTIVE STAFF] - 09/25/17 10:30 am
[2017-09-23 12:01] VITALS: BP 112/59
== END 2017-09-23 12:00 | disposition home or self-care (01) ==
LOC: ER 10:54
DX: H53.8 Other visual disturbances (principal); E11.9 Type 2 diabetes mellitus without complications; Z79.4 Long term (current) use of insulin; I10 Essential (primary) hypertension
CPT/HCPCS: 82962; 99284

== ENCOUNTER 2017-12-03 09:33 | Day surgery (SDC) | payer OTHER ==
[~2017-12-03 09:33] MED LIST changes: +KETOROLAC TROMETHAMINE 0.45% 4 DROP/0.4 ML DROPERETTE OD PRN; -LIDOCAINE 2% INJ-PF (20 MG/ML) 10 ML AMPUL ONE
[2017-12-03] MEDS ORDERED: CHONDR SU A NA/HYALUR INTRAOC KIT (SURGICARE) ONE (10:16)
[2017-12-03] MEDS ORDERED: LIDOCAINE 1%/PHENYLEPHRINE 1.5% 1 ML VIAL ONE (10:16)
[2017-12-03] MEDS ORDERED: EPINEPHRINE INJ/PF 1 MG/1 ML AMPULE ONE (10:16)
[2017-12-03] MEDS ORDERED: TRYPAN BLUE 0.06 % OPH SOLN 0.5 ML DISP.SYRIN ONE (10:16)
[2017-12-03] MEDS: CYCLOPENTOLATE 0.2%/PHENYLEPHRINE 1% OPH SOLN 2 ML OD PRN ×3 (11:10→11:30)
[2017-12-03] MEDS: TROPICAMIDE 1% OPH SOLN 3 ML OD PRN ×3 (11:10→11:30)
[2017-12-03] MEDS: TETRACAINE HCL 0.5% OPH SOLN 2 ML OD PRN ×3 (11:10→11:34)
[2017-12-03] MEDS: BESIFLOXACIN HCL 0.6% OPH SUSP 5 ML BOTTLE OD PRN ×4 (11:10→11:54)
[2017-12-03] MEDS ORDERED: MIDAZOLAM 2 MG/2 ML INJ ONE (11:14)
--- NOTE | 2017-12-03 17:56 | [facility] OPERATIVE REPORT E ---
[facility] Operative Report NAME: TIKI FRIEDMAN AGE: 61Y DATE OF SURGERY: 12/03/2017 ROOM: PREOPERATIVE DIAGNOSIS: CATARACT, RIGHT EYE. POSTOPERATIVE DIAGNOSIS: CATARACT, RIGHT EYE. OPERATION: Cataract extraction with insertion of an IOL of the right eye. SURGEON: NICHOL DAVIES M.D. ANESTHESIA: Topical. PROCEDURE: After obtaining appropriate consent, the patient's right eye was prepped and draped in sterile fashion as well as the surgeon in a sterile manner and cataract surgery was started. First a paracentesis blade was used to make a side-port incision. Viscoelastic was used to inflate the anterior chamber. Next a 2.4 mm incision was made with a 2.4 mm blade, clear corneal temporally. A continuous capsulorrhexis was made using a cystotome and Utrata forceps. Following this hydrodissection was carried out to make the lens fully loose and mobile and it was rotated 90 degrees. Following this, a hqmemn-jrw-xbilqef technique was used to phacoemulsify the lens with a CDE of 5.02. The remaining cortex was removed with irrigation/aspiration. Provisc was instilled into the capsular bag to inflate the bag. A SN60WF, 18.0 diopter lens was placed. The remaining viscoelastic material was removed with irrigation/aspiration. Following this, the incision was found to be watertight. Besivance was instilled into the eye and a protective shield was placed over the eye. The patient returned to the postoperative recovery in stable condition. DICTATING PHYSICIAN: NICHOL DAVIES M.D. [id number] PHY#: [id number] ID: [id number] JOB#: [id number] ACCT: [id number] cc:NICHOL DAVIES M.D. >
--- NOTE | 2017-12-03 17:56 | [facility] DISCHARGE SUMMARY E ---
[facility] Discharge Summary NAME: TIKI FRIEDMAN AGE: 61Y ADMITTED: 12/03/2017 DISCHARGED: 12/03/2017 FINAL DIAGNOSIS: Cataract, right eye. HOSPITAL COURSE: This is a 61-year-old male who underwent cataract extraction of the right eye. He underwent surgery because he was having difficulty seeing words on the television. DISCHARGE INSTRUCTIONS: He should be on a regular diet. No bending at his waist, no heavy lifting. He should use Besivance, Ilevro and Durezol at 3:00 p.m. and 8:00 p.m. Sleep with a rigid shield. I will see him for his 1-day postoperative tomorrow. DICTATING PHYSICIAN: NICHOL DAVIES M.D. [id number] PHY#: [id number] ID: [id number] JOB#: [id number] ACCT: [id number] cc:NICHOL DAVIES M.D. >
== END 2017-12-03 12:40 | disposition home or self-care (01) ==
LOC: SC 09:33
PROVIDERS: ATTEND Internal Medicine
DX: H25.89 Other age-related cataract (principal); E08.3292 Diabetes mellitus due to underlying condition with mild nonproliferative diabetic retinopathy without macular edema, left eye; H40.013 Open angle with borderline findings, low risk, bilateral; H52.4 Presbyopia; I10 Essential (primary) hypertension; E78.00 Pure hypercholesterolemia, unspecified; G47.30 Sleep apnea, unspecified; I49.9 Cardiac arrhythmia, unspecified; Z79.899 Other long term (current) drug therapy; Z79.01 Long term (current) use of anticoagulants; Z79.84 Long term (current) use of oral hypoglycemic drugs; Z79.4 Long term (current) use of insulin
CPT/HCPCS: 66984; 82962; V2632; J2250; J3490; J0171; J2370; 142

== ENCOUNTER 2017-12-29 07:03 | Day surgery (SDC) | payer OTHER ==
[~2017-12-29 07:03] MED LIST changes: -KETOROLAC TROMETHAMINE 0.45% 4 DROP/0.4 ML DROPERETTE OD PRN; +KETOROLAC TROMETHAMINE 0.45% 4 DROP/0.4 ML DROPERETTE OS PRN
[2017-12-29] MEDS ORDERED: EPINEPHRINE INJ/PF 1 MG/1 ML AMPULE ONE (07:09)
[2017-12-29] MEDS ORDERED: CHONDR SU A NA/HYALUR INTRAOC KIT (SURGICARE) ONE (07:09)
[2017-12-29] MEDS ORDERED: LIDOCAINE 1% INJ-PF (10 MG/ML) 30 ML SDV ONE (07:09)
[2017-12-29] MEDS ORDERED: FENTANYL CITRATE INJ/PF 100 MCG/2 ML AMPUL ONE (07:17)
[2017-12-29] MEDS ORDERED: MIDAZOLAM 2 MG/2 ML INJ ONE (07:17)
[2017-12-29] MEDS: TETRACAINE HCL 0.5% OPH SOLN 4 ML OS PRN ×3 (07:20→08:00)
[2017-12-29] MEDS: TROPICAMIDE 1% OPH SOLN 3 ML OS PRN ×3 (07:20→07:40)
[2017-12-29] MEDS: BESIFLOXACIN HCL 0.6% OPH SUSP 5 ML BOTTLE OS PRN ×4 (07:20→08:23)
[2017-12-29] MEDS: CYCLOPENTOLATE 0.2%/PHENYLEPHRINE 1% OPH SOLN 2 ML OS PRN ×3 (07:20→07:40)
[2017-12-29] MEDS ORDERED: LIDOCAINE 1%/PHENYLEPHRINE 1.5% 1 ML VIAL ONE (07:45)
[2017-12-29] MEDS ORDERED: TRYPAN BLUE 0.06 % OPH SOLN 0.5 ML DISP.SYRIN ONE (08:09)
--- NOTE | 2017-12-29 13:40 | [facility] OPERATIVE REPORT E ---
[facility] Operative Report NAME: TIKI FRIEDMAN AGE: 62Y DATE OF SURGERY: 12/29/2017 ROOM: PREOPERATIVE DIAGNOSIS: CATARACT, LEFT EYE. POSTOPERATIVE DIAGNOSIS: CATARACT, LEFT EYE. OPERATION: Cataract extraction with insertion of an IOL of the left eye. SURGEON: NICHOL DAVIES M.D. ANESTHESIA: Topical. PROCEDURE: After obtaining appropriate consent, the patient's left eye was prepped and draped in sterile fashion as well as the surgeon in a sterile manner and cataract surgery was started. First a paracentesis blade was used to make a side-port incision. Viscoelastic was used to inflate the anterior chamber. Next a 2.4 mm incision was made with a 2.4 mm blade, clear corneal temporally. A continuous capsulorrhexis was made using a cystotome and Utrata forceps. Following this hydrodissection was carried out to make the lens fully loose and mobile and it was rotated 90 degrees. Following this, a beizyt-wra-jfgtfeh technique was used to phacoemulsify the lens with a CDE of 6.82. The remaining cortex was removed with irrigation/aspiration. Provisc was instilled into the capsular bag to inflate the bag. A SN60WF, 18.5 diopter lens was placed. The remaining viscoelastic material was removed with irrigation/aspiration. Following this, the incision was found to be watertight. Besivance was instilled into the eye and a protective shield was placed over the eye. The patient returned to the postoperative recovery in stable condition. DICTATING PHYSICIAN: NICHOL DAVIES M.D. [id number] PHY#: [id number] ID: [id number] JOB#: [id number] ACCT: [id number] cc:NICHOL DAVIES M.D. >
--- NOTE | 2017-12-29 13:51 | [facility] DISCHARGE SUMMARY E ---
[facility] Discharge Summary NAME: TIKI FRIEDMAN AGE: 62Y ADMITTED: 12/29/2017 DISCHARGED: 12/29/2017 HOSPITAL COURSE: This 62-year-old male who underwent cataract extraction of the left eye. He underwent surgery because of increased glare from headlights. DISCHARGE INSTRUCTIONS: He is to be on a regular diet. No bending at his waist. No heavy lifting. He should use his Besivance, Ilevro, and Durezol at 3 p.m. and 8 p.m. and sleep with a rigid shield, and I will see him for his one day postoperative tomorrow. FINAL DIAGNOSIS: CATARACT, LEFT EYE. DICTATING PHYSICIAN: NICHOL DAVIES M.D. [id number] PHY#: [id number] ID: [id number] JOB#: [id number] ACCT: [id number] cc:NICHOL DAVIES M.D. >
== END 2017-12-29 08:58 | disposition home or self-care (01) ==
LOC: SC 07:03
PROVIDERS: ATTEND Internal Medicine
DX: H25.89 Other age-related cataract (principal); Z96.1 Presence of intraocular lens; E11.9 Type 2 diabetes mellitus without complications; I10 Essential (primary) hypertension; I49.9 Cardiac arrhythmia, unspecified; Z79.01 Long term (current) use of anticoagulants; Z79.4 Long term (current) use of insulin; Z79.84 Long term (current) use of oral hypoglycemic drugs; Z79.899 Other long term (current) drug therapy
CPT/HCPCS: 66984; 82962; V2632; J2250; J3490 ×3; J0171; J2370; 142; J3010

== ENCOUNTER → 2019-06-14 | Outpatient (CLI) | payer MEDICARE | LOC: OD 14:14 | PROVIDERS: ATTEND Nurse Practitioner Acute Care | DX: M79.671 Pain in right foot (principal) | CPT/HCPCS: 36415; 84550 ==

== ENCOUNTER 2019-06-15 10:18 | Emergency (ER) | payer MEDICARE ==
[2019-06-15 10:48] VITALS: BP 140/76
--- NOTE | 2019-06-15 10:58 | ER Document Report ---
ED Extremity Problem, Lower - General Chief Complaint: Foot Pain Stated Complaint: RIGHT FOOT PAIN Time Seen by Provider: 06/15/19 10:49 Primary Care Provider: BASSAM SAENZ DPM [ACTIVE STAFF] - Follow up as needed RADHA DASILVA DO [Primary Care Provider] - Follow up as needed Mode of Arrival: Wheelchair Information source: Patient Notes: 63-year-old male presented to ED for complaint of right lateral foot pain x1 week. He states he tried to go to his primary doctor and they did not have a appointment last week or this week and he states he went to the urgent care couple days ago they adia blood told him there was no uric acid in his foot and no signs of any gout. He tried again to go to his primary doctor today and they were still full. He is come here to the emergency room to see if he could get an x-ray and a consult to a senior game designer. He states there is no pain in his foot except for when he walks. TRAVEL OUTSIDE OF THE [place] IN LAST 30 DAYS: No - HPI Patient complains to provider of: Pain Location: Foot Occurred: Last week Where: Home Onset/Duration: Intermittent Quality of pain: Throbbing Severity: Moderate Pain Level: 2 Recent injury: No Associated symptoms: Painful ambulation Exacerbated by: Hanging down, Movement, Walking Relieved by: Nothing - Related Data Allergies/Adverse Reactions: No Known Allergies Allergy (Verified 06/15/19 10:51) Past Medical History - General Information source: Patient - Social History Smoking Status: Former Smoker Frequency of alcohol use: Social Drug Abuse: None, Marijuana Lives with: Alone Family History: Arthritis, DM, Hyperlipidemia, Hypertension, Malignancy, Thyroid Disfunction - Past Medical History Cardiac Medical History: Reports: Hx Congestive Heart Failure, Hx DVT, Hx Hypertension, Hx Pulmonary Embolism Pulmonary Medical History: Reports: Hx Sleep Apnea EENT Medical History: Reports: None Neurological Medical History: Reports: None Endocrine Medical History: Reports: Hx Diabetes Mellitus Type 1 Renal/ Medical History: Reports: None GI Medical History: Reports: Hx Colonoscopy. Denies: Hx Hepatitis, Hx Hiatal Hernia, Hx Ulcer Musculoskeletal Medical History: Reports Hx Arthritis, Reports Hx Musculoskeletal Trauma Psychiatric Medical History: Reports: Hx Anxiety Denies: Hx Depression Infectious Medical History: Denies: Hx Hepatitis Past Surgical History: Reports: Hx Cardiac Catheterization - In [place] about 10 years ago, Hx Oral Surgery - teeth pulled, Hx Orthopedic Surgery - right hand 4th finger, Hx Pacemaker - 05/2016. Denies: Hx Open Heart Surgery - Immunizations Immunizations up to date: Yes Hx Diphtheria, Pertussis, Tetanus Vaccination: Yes Review of Systems - Review of Systems Constitutional: No symptoms reported EENT: No symptoms reported Cardiovascular: No symptoms reported Respiratory: No symptoms reported Gastrointestinal: No symptoms reported Genitourinary: No symptoms reported Male Genitourinary: No symptoms reported Musculoskeletal: Other - Right foot pain Skin: No symptoms reported Hematologic/Lymphatic: No symptoms reported Neurological/Psychological: No symptoms reported -: Yes All other systems reviewed and negative Physical Exam - Vital signs Vitals: Temp Pulse Resp BP Pulse Ox 98.4 F 108 H 18 140/76 H 96 06/15/19 10:47 06/15/19 10:47 06/15/19 10:47 06/15/19 10:47 06/15/19 10:47 Interpretation: Normal - General General appearance: Appears well, Alert - HEENT Head: Normocephalic, Atraumatic Eyes: Normal Pupils: PERRL - Respiratory Respiratory status: No respiratory distress Chest status: Nontender Breath sounds: Normal Chest palpation: Normal - Cardiovascular Rhythm: Regular Heart sounds: Normal auscultation Murmur: No - Abdominal Inspection: Normal Distension: No distension Bowel sounds: Normal Tenderness: Nontender Organomegaly: No organomegaly - Back Back: Normal, Nontender - Extremities General upper extremity: Normal inspection, Nontender, Normal color, Normal ROM, Normal temperature General lower extremity: Normal inspection, Normal color, Normal ROM, Normal temperature, Normal weight bearing. No: Lebron's sign Foot: Tender, No evidence of FB - Neurological Neuro grossly intact: Yes Cognition: Normal Orientation: AAOx4 [place] Coma Scale Eye Opening: Spontaneous [place] Coma Scale Verbal: Oriented Mame Coma Scale Motor: Obeys Commands Mame Coma Scale Total: 15 Speech: Normal Motor strength normal: LUE, RUE, LLE, RLE Sensory: Normal - Psychological Associated symptoms: Normal affect, Normal mood - Skin Skin Temperature: Warm Skin Moisture: Dry Skin Color: Normal Course - Re-evaluation Re-evalutation: 06/15/19 22:09 X-ray was negative for any injuries any abnormalities. Patient was given the report of the x-rays and instructed to follow-up with primary care or senior game designer. Verbalized understanding and agreement with treatment plan - Vital Signs Vital signs: Temp Pulse Resp BP Pulse Ox 98.4 F 108 H 18 140/76 H 96 06/15/19 10:47 06/15/19 10:47 06/15/19 10:47 06/15/19 10:47 06/15/19 10:47 - Diagnostic Test Radiology reviewed: Image reviewed, Reports reviewed Discharge - Discharge Clinical Impression: Foot pain, right Condition: Stable Disposition: HOME, SELF-CARE Additional Instructions: Your foot x-ray was negative No signs of infection or injury at this time. I have given you the name and number of a senior game designer or foot doctor. Acetaminophen Acetaminophen may be taken for pain relief or fever control. It's much safer than aspirin, offering a wider range of "safe" dosages. It is safe during . Some brand names are Tylenol, Panadol, Datril, Anacin 3, Tempra, and Liquiprin. Acetaminophen can be repeated every four hours. The following are maximum recommended dosages: WEIGHT Dose Drops Elixir Chewable(80mg) (LBS.) drprs=droppers tsp=teaspoon 6 40 mg .4 ml (1/2) 6-11 80 mg .8 ml (full) 1/2 tsp 1 tab 12-16 120 mg 1 1/2 drprs 3/4 tsp 1 1/2 tabs 17-23 160 mg 2 drprs 1 tsp 2 tabs 24-30 240 mg 3 drprs 1 1/2 tsp 3 tabs 30-35 320 mg 2 tsp 4 tabs 36-41 360 mg 2 1/4 tsp 4 1/2 tabs 42-47 400 mg 2 1/2 tsp 5 tabs 48-53 480 mg 3 tsp 6 tabs 54-59 520 mg 3 1/4 tsp 6 1/2 tabs 60-64 560 mg 3 1/2 tsp 7 tabs 65-70 600 mg 3 3/4 tsp 7 1/2 tabs 71-76 640 mg 4 tsp 8 tabs 77-82 720 mg 4 1/2 tsp 9 tabs 83-88 800 mg 5 tsp 10 tabs >89 pounds or adults 650 mg to 900 mg Acetaminophen can be repeated every four hours. Maximum daily dose not to exceed 4000 mg. These maximum recommended dosages are slightly higher than the dosages written on the product container, but these dosages are very safe and well below the toxic dosage for acetaminophen. FOLLOW-UP CARE: If you have been referred to a physician for follow-up care, call the physicians office for an appointment as you were instructed or within the next two days. If you experience worsening or a significant change in your symptoms, notify the physician immediately or return to the Emergency Department at any time for re-evaluation. Referrals: RADHA DASILVA DO [Primary Care Provider] - Follow up as needed BASSAM SAENZ DPM [ACTIVE STAFF] - Follow up as needed
--- NOTE | 2019-06-15 11:21 | RADIOLOGY REPORT (SQ) ---
EXAM DESCRIPTION: FOOT RIGHT COMPLETE COMPLETED DATE/TIME: 06/15/2019 11:12 am REASON FOR STUDY: pain for a week COMPARISON: None. NUMBER OF VIEWS: Three views. TECHNIQUE: AP, lateral and oblique without weight bearing radiographic images acquired of the right foot. LIMITATIONS: None. FINDINGS: MINERALIZATION: Normal. BONES: No acute fracture or dislocation. No worrisome bone lesions. No significant osteophytes. JOINTS: No erosions. No lyn-articular osteopenia. No chondrocalcinosis. SOFT TISSUES: No swelling. No calcifications. OTHER: No other significant finding. IMPRESSION: NEGATIVE STUDY OF THE RIGHT FOOT. NO EXPLANATION FOR PAIN. TECHNICAL DOCUMENTATION: JOB ID: [id number] 2010 [employer]- All Rights Reserved Reading location - IP/workstation name: [email or web address]
== END 2019-06-15 11:47 | disposition home or self-care (01) ==
LOC: ER 10:18
DX: M79.671 Pain in right foot (principal); I50.9 Heart failure, unspecified; I11.0 Hypertensive heart disease with heart failure; E10.9 Type 1 diabetes mellitus without complications; Z86.718 Personal history of other venous thrombosis and embolism; Z86.711 Personal history of pulmonary embolism; Z95.0 Presence of cardiac pacemaker
CPT/HCPCS: 99283